=== PATIENT | female | born 1945 | race Caucasian/White ===

== ENCOUNTER → 2016-03-30 | Outpatient (CLI) | payer OTHER ==
[~2016-03-30] MED LIST: ACC10 PO; ACET1TAB84 PO; AMLO-110 PO; ASPEC81 PO; CALC-5 PO; CLTP PO; DIAZ2TAB PO; ESCI10TA17 PO; ESCI1TAB6 PO; METO1TAB31 PO; METO25TA3 PO; PRLSR20 PO; QUIN40TA18 PO; WARF4TAB PO
[2016-03-30 10:49] LABS: BASO % 0.4 %; BASO ABS # 0.02 K/uL (0-0.2); COMPLETE YES; EOS % 5.4 %; HEMATOCRIT 42.5 % (37-47); IG% 0.2 %; LYMPH % 38.4 %; LYMPH ABS # 1.78 K/uL (1.2-3.4); MEAN CELL VOLUME 94.4 fL (80-100); MEAN CORPUSCULAR HGB CONC 33.9 g/dl (32-36); MEAN PLATELET VOLUME 10.7 fL (7.4-10.4); MONO % 13.6 %; PLATELET COUNT 221 K/uL (130-400); WHITE BLOOD COUNT 4.64 K/uL (4.8-10.8)
[2016-03-30 11:02] LABS: ALT/SGPT 24 U/L (12-78); AST/SGOT 12 U/L (15-37); BLOOD UREA NITROGEN 19 mg/dl (7-18); BUN/CREATININE RATIO 28.5 (10-20); CALCIUM 9.1 mg/dl (8.5-10.1); CARBON DIOXIDE 31 mmol/L (21-32); CHLORIDE 101 mmol/L (98-107); CREATININE 0.66 mg/dl (0.60-1.20); GLUCOSE 87 mg/dl (70-99); HDL CHOLESTEROL 61 mg/dl; POTASSIUM 3.9 mmol/L (3.5-5.1); SODIUM 139 mmol/L (136-145)
[2016-03-30 11:05] LABS: ALB/GLOB RATIO 1.2 (0.9-2); ALKALINE PHOSPHATASE 72 U/L (45-117); CHOLESTEROL 212 mg/dl (0-200); CHOLESTEROL/HDL RATIO 3.5; LDL CHOLESTEROL CALCULATED 129 mg/dl; TRIGLYCERIDES 109 mg/dl (0-150); VERY LOW DENSITY LIPOPROT CALC 22 mg/dl
== END | disposition home or self-care (01) ==
LOC: C.LABBC 08:27
PROVIDERS: ATTEND Internal Medicine
DX: Z51.81 Encounter for therapeutic drug level monitoring (principal); Z79.01 Long term (current) use of anticoagulants

== ENCOUNTER → 2016-08-19 | Outpatient (CLI) | payer OTHER ==
[~2016-08-19] MED LIST changes: +METO-478 PO; -METO1TAB31 PO
== END | disposition home or self-care (01) ==
LOC: C.PAPS 11:14
PROVIDERS: ATTEND Nurse Practitioner Family
DX: J02.9 Acute pharyngitis, unspecified (principal)

== ENCOUNTER 2016-09-27 11:07 | Observation (INO) | payer OTHER ==
[~2016-09-27] VITALS: Ht 157.5 cm; Wt 61.6 kg
[~2016-09-27 11:07] MED LIST changes: -ASPEC81 PO; -CALC-5 PO; -ESCI10TA17 PO; -METO-478 PO; +METO1TAB31 PO; -METO25TA3 PO; -QUIN40TA18 PO
[2016-09-27] MEDS ORDERED: ASPIRIN 81 MG CHEW PO STA (11:30)
[2016-09-27] MEDS ORDERED: SODIUM CHLORIDE 0.9% 1000ML 1,000 ML IV STA (11:30)
--- NOTE | 2016-09-27 11:33 | EMERGENCY ROOM VISIT NOTE ---
History Report prepared by Guerrero: Yakelin Howard Under the Supervision of: Dr. Rico Keyes M.D. First contact with patient: 11:17 Chief Complaint: CHEST PAIN Stated Complaint: CHEST PAIN History of Present Illness The patient is a 71 year old female who presents to the Emergency Room with complaints of intermittent chest pain beginning a few hours ago. The patient states that she was at [employer] and it was hot inside. She reports that she began to have chest pain intermittently and was diaphoretic. She notes that she began having pain in her back and neck pain on the left side. She reports that she thought that the pain may be indigestion but after being in the air conditioning her chest pain has resolved. The patient states that her pain has now moved to her abdomen. She reports that she has a history of atrial fibrillation and is on Warfarin. She notes that she had a stress test 4 years ago and it was normal but has never had a cardiac catheterization. The patient states that the last time she ate was last night. Source of History: patient Onset: a few hours ago Position: chest Timing: intermittent Modifying Factors (Worsening): other (heat) Associated Symptoms: + diaphoresis, + neck pain, + abdominal pain, + back pain Review of Systems See HPI for pertinent positives & negatives. A total of 10 systems reviewed and were otherwise negative. Past Medical & Surgical Medical Problems: (1) Fibromyalgia affecting forearm (2) GERD (gastroesophageal reflux disease) (3) Hypertension Family History Patient reports no known family medical history. Social History Smoking Status: Never Smoker Marital Status: Housing Status: lives with family Occupation Status: retired Current/Historical Medications Scheduled Acetaminophen (Tylenol Arthritis Ext Rel), 2 TAB PO QAM Amlodipine (Norvasc), 5 MG PO HS Calcium-Magnesium W/ Vitamin D (Calcium 500), 1 TAB PO HS Escitalopram (Lexapro), 10 MG PO HS Metoprolol Succ (Toprol Xl) (Toprol-Xl), 25 MG PO HS Omeprazole (Prilosec), 20 MG PO HS Quinapril Hcl (Accupril), 40 MG PO HS Warfarin Sodium (Coumadin), 4 MG PO HS Allergies Coded Allergies: Iodinated Diagnostic Agents (Unverified Allergy, Mild, ., 09/27/16) Sulfa Drugs (Verified Allergy, Mild, 09/27/16) Physical Exam Vital Signs Date Time Temp Pulse Resp B/P (MAP) Pulse Ox O2 Delivery O2 Flow Rate FiO2 09/27/16 13:59 81 16 147/88 97 Room Air 09/27/16 12:23 71 09/27/16 12:09 96 Room Air 09/27/16 12:09 73 18 157/88 97 Room Air 09/27/16 11:50 97 Room Air 09/27/16 11:11 36.7 78 20 124/71 97 Room Air Physical Exam GENERAL: Patient is a healthy-appearing well-nourished [] HEAD: Normocephalic atraumatic EYES: Ocular movements intact pupils equal and react to light OROPHARYNX mucous membranes are moist no exudates present no erythema or edema present NECK: Supple no nuchal rigidity CHEST: Good equal expansion LUNGS: Clear and equal to auscultation CARDIAC: Normal S1 and S2 ABDOMEN: Soft nontender no guarding BACK: No CVA tenderness EXTREMITIES: No pain upon palpation normal muscle strength in all groups no clubbing cyanosis or edema NEURO: Patient is following commands and answering questions appropriately. Alert and oriented x3 Cranial Nerves 2-12 grossly intact Medical Decision & Procedures ER Provider Diagnostic Interpretation: X-ray results as stated below per interpretation by me and the radiologist: CHEST ONE VIEW PORTABLE FINDINGS: The heart is the upper limits of normal in size. There is no failure. There is no focal pulmonary consolidation. There are no pleural effusions.[ IMPRESSION: No active disease in the chest. Electronically signed by: Yfn Ovalle M.D. 09/27/2016 12:07 PM Dictated Date/Time: 09/27/2016 12:06 PM Laboratory Results 09/27/16 11:50 Red Blood Count 4.74, Mean Corpuscular Volume 93.5, Mean Corpuscular Hemoglobin 32.1, Mean Corpuscular Hemoglobin Concent 34.3, Mean Platelet Volume 10.5, Neutrophils (%) (Auto) 43.2, Lymphocytes (%) (Auto) 42.1, Monocytes (%) (Auto) 10.2, Eosinophils (%) (Auto) 3.9, Basophils (%) (Auto) 0.4, Neutrophils # (Auto ) 2.34, Lymphocytes # (Auto) 2.28, Monocytes # (Auto) 0.55, Eosinophils # (Auto ) 0.21, Basophils # (Auto) 0.02 09/27/16 11:50 Test 09/27/16 11:50 White Blood Count 5.41 K/uL (4.8-10.8) Red Blood Count 4.74 M/uL (4.2-5.4) Hemoglobin 15.2 g/dL (12.0-16.0) Hematocrit 44.3 % (37-47) Mean Corpuscular Volume 93.5 fL (80-100) Mean Corpuscular Hemoglobin 32.1 pg (25-34) Mean Corpuscular Hemoglobin Concent 34.3 g/dl (32-36) Platelet Count 215 K/uL (130-400) Mean Platelet Volume 10.5 fL (7.4-10.4) Neutrophils (%) (Auto) 43.2 % Lymphocytes (%) (Auto) 42.1 % Monocytes (%) (Auto) 10.2 % Eosinophils (%) (Auto) 3.9 % Basophils (%) (Auto) 0.4 % Neutrophils # (Auto) 2.34 K/uL (1.4-6.5) Lymphocytes # (Auto) 2.28 K/uL (1.2-3.4) Monocytes # (Auto) 0.55 K/uL (0.11-0.59) Eosinophils # (Auto) 0.21 K/uL (0-0.5) Basophils # (Auto) 0.02 K/uL (0-0.2) RDW Standard Deviation 45.5 fL (36.4-46.3) RDW Coefficient of Variation 13.2 % (11.5-14.5) Immature Granulocyte % (Auto) 0.2 % Immature Granulocyte # (Auto) 0.01 K/uL (0.00-0.02) Prothrombin Time 25.3 SECONDS (9.0-12.0) Prothromb Time International Ratio 2.3 (0.9-1.1) Anion Gap 6.0 mmol/L (3-11) Est Creatinine Clear Calc Drug Dose 67.7 ml/min Estimated GFR () 102.8 Estimated GFR (Non- 88.7 BUN/Creatinine Ratio 23.1 (10-20) Calcium Level 9.5 mg/dl (8.5-10.1) Total Bilirubin 0.6 mg/dl (0.2-1) Direct Bilirubin 0.2 mg/dl (0-0.2) Aspartate Amino Transf (AST/SGOT) 16 U/L (15-37) Alanine Aminotransferase (ALT/SGPT) 24 U/L (12-78) Alkaline Phosphatase 73 U/L (45-117) Total Creatine Kinase 82 U/L (26-192) Creatine Kinase MB 1.1 ng/ml (0.5-3.6) Creatine Kinase MB Ratio 1.3 (0-3.0) Troponin I 0.028 ng/ml (0-0.045) Total Protein 7.5 gm/dl (6.4-8.2) Albumin 4.0 gm/dl (3.4-5.0) Lipase 137 U/L (73-393) Labs reviewed by ED physician. Medications Administered Medications (Trade) Dose Ordered Sig/Harmony Route Start Time Stop Time Status Last Admin Dose Admin Sodium Chloride 1,000 ml @ 999 mls/hr Q1H1M STAT IV 09/27/16 11:30 09/27/16 12:30 DC 09/27/16 12:08 999 MLS/HR Aspirin (Aspirin Chew) 324 mg NOW STAT PO 09/27/16 11:30 09/27/16 11:32 DC 09/27/16 12:08 324 MG ECG Indication: chest pain Rate (beats per minute): 70 Rhythm: atrial fibrillation Findings: RBBB (incomplete), no acute ischemic change ED Course 1117: Past medical records reviewed. The patient was evaluated in room B3. A complete history and physical examination was performed. 1130: Aspirin 324mg PO, Sodium Chloride 1000 ml @ 999 mls/hr IV. 1346: I discussed the patient's case with Dr. Lopez of Cardiology about the patient's case. 1401: I discussed the patient's case with Dr. Conteh, she has agreed to evaluate the patient for further management and care. 1412: Upon reexamination the patient is doing well. I discussed results and treatment plan with the patient. She verbalizes agreement and understanding. I spoke with Dr. Conteh from the [facility] Hospitalist Service. The patient will be evaluated for further management. Medical Decision Differential diagnosis: Etiologies such as cardiac ischemia, aortic dissection, pulmonary embolism, pneumonia, pneumothorax, musculoskeletal, infections, pericarditis, myocarditis , esophageal rupture, gastrointestinal, as well as others were entertained. This is a 71-year-old female who presents emergency department complaining of chest pain. The patient is pain-free upon arrival to the emergency department. She does have a history of atrial fibrillation however her EKG is unchanged from previous. Her Coumadin level is also therapeutic. She was given triage 24 mg of aspirin in the emergency department. Her CK and MB fractions are normal however her troponin is slightly elevated. 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 I did discuss the case with the hospitalist service who agreed to admit the patient. Patient was in agreement with the treatment plan. Medication Reconcilliation Current Medication List: was personally reviewed by me Blood Pressure Screening Patient's blood pressure: Normal blood pressure Blood pressure disposition: Did not require urgent referral Consults Time Called: 1342 Consulting Physician: Dr. Lopez - Cardiology Returned Call: 1346 I discussed the patient's case with Dr. Lopez of Cardiology about the patient's case. Additional Consults: Time Called: 1358 Consulted Physician: Dr. Conteh - [facility] Returned Call: 1401 Additional Comments: I discussed the patient's case with Dr. Conteh, she has agreed to evaluate the patient for further management and care. Impression Primary Impression: Precordial chest pain Scribe Attestation The scribe's documentation has been prepared under my direction and personally reviewed by me in its entirety. I confirm that the note above accurately reflects all work, treatment, procedures, and medical decision making performed by me. Departure Information Dispostion Being Evaluated By Hospitalist Referrals Nael Don M.D. (PCP) Patient Instructions [facility]
--- NOTE | 2016-09-27 12:08 | DIAGNOSTIC IMAGING REPORT ---
CHEST ONE VIEW PORTABLE CLINICAL HISTORY: Atypical chest pain COMPARISON STUDY: 12/16/2010 FINDINGS: The heart is the upper limits of normal in size. There is no failure. There is no focal pulmonary consolidation. There are no pleural effusions.[ IMPRESSION: No active disease in the chest. Electronically signed by: Yfn Ovalle M.D. 09/27/2016 12:07 PM Dictated Date/Time: 09/27/2016 12:06 PM
[2016-09-27 12:17] LABS: BASO % 0.4 %; BASO ABS # 0.02 K/uL (0-0.2); COMPLETE YES; EOS % 3.9 %; HEMATOCRIT 44.3 % (37-47); IG% 0.2 %; LYMPH % 42.1 %; LYMPH ABS # 2.28 K/uL (1.2-3.4); MEAN CELL VOLUME 93.5 fL (80-100); MEAN CORPUSCULAR HEMOGLOBIN 32.1 pg (25-34); MEAN CORPUSCULAR HGB CONC 34.3 g/dl (32-36); MEAN PLATELET VOLUME 10.5 fL (7.4-10.4); MONO % 10.2 %; NEUT % 43.2 %; PLATELET COUNT 215 K/uL (130-400); RED BLOOD COUNT 4.74 M/uL (4.2-5.4); WHITE BLOOD COUNT 5.41 K/uL (4.8-10.8)
[2016-09-27 12:24] LABS: INR 2.3 (0.9-1.1); PROTHROMBIN TIME (PATIENT) 25.3 SECONDS (9.0-12.0)
[2016-09-27] MEDS ORDERED: ACET1TAB84 PO (12:32)
[2016-09-27] MEDS ORDERED: ESCI10TA17 PO (12:32)
[2016-09-27] MEDS ORDERED: CALC-5 PO (12:32)
[2016-09-27] MEDS ORDERED: AMLO-110 PO (12:32)
[2016-09-27] MEDS ORDERED: METO25TA3 PO (12:32)
[2016-09-27] MEDS ORDERED: PRLSR20 PO (12:32)
[2016-09-27] MEDS ORDERED: QUIN40TA18 PO (12:32)
[2016-09-27 12:39] LABS: BUN/CREATININE RATIO 23.1 (10-20); CALCIUM 9.5 mg/dl (8.5-10.1); CREATININE 0.65 mg/dl (0.60-1.20); POTASSIUM 3.5 mmol/L (3.5-5.1)
[2016-09-27 12:45] LABS: CKMB/CK RATIO 1.3 (0-3.0)
[2016-09-27] MEDS ORDERED: POLYETHYLENE (MIRALAX) 17 GM PACK PO PRN (14:45)
[2016-09-27] MEDS ORDERED: ONDANSETRON INJ 2 MG/ML 2 ML VIAL IV PRN (14:45)
[2016-09-27] MEDS ORDERED: MAGNESIUM HYDROXIDE SUSP 30 ML UDC PO PRN (14:45)
[2016-09-27] MEDS ORDERED: ACETAMINOPHEN 325 MG TAB PO PRN (14:45)
--- NOTE | 2016-09-27 15:16 | History and Physical ---
History & Physical Date & Time of Service: Sep 27, 2016 at 14:50 Chief Complaint: Chest Pain Primary Care Physician: Nael Don M.D. History of Present Illness Source: patient, spouse, clinic records, hospital records This is a 71 y/o female with a history of permanent a-fib on chronic anticoagulation, HTN, HLD, JI, GERD, chronic back pain w/radiculopathy, and scleroderma who presented to the ED on 09/27 with chest pain. The patient states that she was in [employer] when she began to develop epigastric and left sided chest pain. She states that the pain was burning in character. The patient notes she has GERD and has not eaten anything today except 2 cups of coffee. The pain began to increase in intensity and shoot through to her back and was accompanied by some shortness of breath and nausea. The patient states the pain was a 7/10 at its most severe and lasted about 20-30 minutes. The patient also notes that the [employer] was hot inside due to lack of air conditioning, and she began to feel better once she cooled down. The patient states that her chest pain, shortness of breath, and nausea have all resolved now. She has some left sided neck pain and spasm, which seems to be unrelated, as well as her usual back pain. The patient admits to tingling in her left hand but states this is chronic due to her cervical stenosis. The patient denies fevers, chills, sweats, palpitations, claudication, cough, wheezing, vomiting, dysuria, hematuria, urinary retention, paralysis, weakness, new/acute numbness and tingling. Past Medical/Surgical History Medical Problems: (1) Fibromyalgia affecting forearm Status: Chronic (2) GERD (gastroesophageal reflux disease) Status: Chronic (3) Hypertension Status: Chronic Permanent a-fib on chronic AC HLD JI Chronic back pain, cervical and lumbar stenosis w/radiculopathy Scleroderma H/o melanoma Family History Basal cell carcinoma Coronary artery disease Hypertension Myocardial infarction Social History Smoking Status: Never Smoker Smokeless Tobacco Use: No Alcohol Use: socially (1 glass of wine most nights) Drug Use: none Marital Status: Housing status: lives with significant other Occupational Status: retired Allergies Coded Allergies: Iodinated Diagnostic Agents (Unverified Allergy, Mild, ., 09/27/16) Sulfa Drugs (Verified Allergy, Mild, 09/27/16) Home Medications Scheduled Acetaminophen (Tylenol Arthritis Ext Rel), 2 TAB PO QAM Amlodipine (Norvasc), 5 MG PO HS Calcium-Magnesium W/ Vitamin D (Calcium 500), 1 TAB PO HS Escitalopram (Lexapro), 10 MG PO HS Metoprolol Succ (Toprol Xl) (Toprol-Xl), 25 MG PO HS Omeprazole (Prilosec), 20 MG PO HS Quinapril Hcl (Accupril), 40 MG PO HS Warfarin Sodium (Coumadin), 4 MG PO HS Review of Systems Constitutional: No fever, No chills, No sweats Eyes: No worsening of vision, No eye pain, No diplopia ENT: No hearing loss, No sore throat, No trouble swallowing Respiratory: + shortness of breath (resolved), No cough, No wheezing Cardiovascular: + chest pain (resolved), No claudication, No palpitations Abdomen: + nausea (resolved), No pain, No vomiting Musculoskeletal: + joint pain, + muscle pain (L neck w/spasm and pain), No calf pain Genitourinary - Female: No dysuria, No urinary retention, No hematuria Neurologic: + numbness/tingling (chronic), No paralysis, No weakness Integumentary: No rash, No itch, No color change Physical Exam Vital Signs Date Time Temp Pulse Resp B/P (MAP) Pulse Ox O2 Delivery O2 Flow Rate FiO2 09/27/16 13:59 81 16 147/88 97 Room Air 09/27/16 12:23 71 09/27/16 12:09 96 Room Air 09/27/16 12:09 73 18 157/88 97 Room Air 09/27/16 11:50 97 Room Air 09/27/16 11:11 36.7 78 20 124/71 97 Room Air General appearance: Well-developed, well-nourished, no apparent distress Head: Normocephalic, atraumatic Eyes: Normal inspection, PERRL, EOMI ENT: Normal ENT inspection, hearing grossly normal, pharynx normal Neck: +Left neck muscles w/spasm, TTP. Supple, no JVD, trachea midline Respiratory/Chest: Lungs clear to auscultation, normal breath sounds, no respiratory distress Cardiovascular: +Irregularly irregular, rate controlled. No gallop, no murmur Abdomen/GI: +Epigastrium mildly TTP. Normal bowel sounds, non-tender, soft Extremities/Musculoskeletal: Normal inspection, no calf tenderness, no pedal edema Neurological/Psych: Alert, normal mood/affect, oriented x 3 Skin: Normal color, warm/dry, no rash Diagnostics Laboratory Results Results Past 24 Hours Test 09/27/16 11:50 Range/Units White Blood Count 5.41 4.8-10.8 K/uL Red Blood Count 4.74 4.2-5.4 M/uL Hemoglobin 15.2 12.0-16.0 g/dL Hematocrit 44.3 37-47 % Mean Corpuscular Volume 93.5 80-100 fL Mean Corpuscular Hemoglobin 32.1 25-34 pg Mean Corpuscular Hemoglobin Concent 34.3 32-36 g/dl Platelet Count 215 130-400 K/uL Mean Platelet Volume 10.5 7.4-10.4 fL Neutrophils (%) (Auto) 43.2 % Lymphocytes (%) (Auto) 42.1 % Monocytes (%) (Auto) 10.2 % Eosinophils (%) (Auto) 3.9 % Basophils (%) (Auto) 0.4 % Neutrophils # (Auto) 2.34 1.4-6.5 K/uL Lymphocytes # (Auto) 2.28 1.2-3.4 K/uL Monocytes # (Auto) 0.55 0.11-0.59 K/uL Eosinophils # (Auto) 0.21 0-0.5 K/uL Basophils # (Auto) 0.02 0-0.2 K/uL RDW Standard Deviation 45.5 36.4-46.3 fL RDW Coefficient of Variation 13.2 11.5-14.5 % Immature Granulocyte % (Auto) 0.2 % Immature Granulocyte # (Auto) 0.01 0.00-0.02 K/uL Prothrombin Time 25.3 9.0-12.0 SECONDS Prothromb Time International Ratio 2.3 0.9-1.1 Sodium Level 136 136-145 mmol/L Potassium Level 3.5 3.5-5.1 mmol/L Chloride Level 99 98-107 mmol/L Carbon Dioxide Level 31 21-32 mmol/L Anion Gap 6.0 3-11 mmol/L Blood Urea Nitrogen 15 7-18 mg/dl Creatinine 0.65 0.60-1.20 mg/dl Est Creatinine Clear Calc Drug Dose 67.7 ml/min Estimated GFR () 102.8 Estimated GFR (Non- 88.7 BUN/Creatinine Ratio 23.1 10-20 Random Glucose 82 70-99 mg/dl Calcium Level 9.5 8.5-10.1 mg/dl Total Bilirubin 0.6 0.2-1 mg/dl Direct Bilirubin 0.2 0-0.2 mg/dl Aspartate Amino Transf (AST/SGOT) 16 15-37 U/L Alanine Aminotransferase (ALT/SGPT) 24 12-78 U/L Alkaline Phosphatase 73 45-117 U/L Total Creatine Kinase 82 26-192 U/L Creatine Kinase MB 1.1 0.5-3.6 ng/ml Creatine Kinase MB Ratio 1.3 0-3.0 Troponin I 0.028 0-0.045 ng/ml Total Protein 7.5 6.4-8.2 gm/dl Albumin 4.0 3.4-5.0 gm/dl Lipase 137 73-393 U/L Diagnostic Radiology Reviewed the following studies and agree with interpretation as follows: Patient Name: DEBBIE ANTHONY Unit Number: [id number] Dictated: 09/27/161205 Transcribed: 09/27/161205 ARG Printed Date/Time: [~ rep prt dt]/[~ rep prt tm] [~ rep ct labl] - [~ rep ct ivnm] [facility] Radiology Department [place], [place] [id number] Dictated: 09/27/161205 Transcribed: 09/27/161205 ARG Printed Date/Time: [~ rep prt dt]/[~ rep prt tm] [~ rep ct labl] - [~ rep ct ivnm] Patient: DEBBIE ANTHONY Address1: [facility] [address] [facility] Rec: [id number] Address2: Acct ID: [id number] [facility] Zip: [place] [address] Date: 1945 Sex: F Room/Bed: Ref Phy: Nael Don M.D. SC: JULIANNE Att Phy: Report #: [id number] Soledad Phy: Nael Don M.D. Test: CXR1P Admit Phy: Steamfitter: DEWEY Interpreting Phy: Yfn Ovalle M.D. Diagnosis: CHEST PAIN Ordering Phy: Rico Keyes MD Service Date: 09/27/16 Admit Date: 09/27/16 MNE: [id number] CONF: DICTATED BY: Yfn Ovalle M.D.]] CC: Rico Keyes, Nael Kwok M.D. Endcc: [~ rep ct add3]] CHEST ONE VIEW PORTABLE CLINICAL HISTORY: Atypical chest pain COMPARISON STUDY: 12/16/2010 FINDINGS: The heart is the upper limits of normal in size. There is no failure. There is no focal pulmonary consolidation. There are no pleural effusions.[ IMPRESSION: No active disease in the chest. Electronically signed by: Yfn Ovalle M.D. 09/27/2016 12:07 PM Dictated Date/Time: 09/27/2016 12:06 PM The status of this report is Signed. Draft = Not yet reviewed or approved by Radiologist. Signed = Reviewed and approved by Radiologist. <AttendingPhy></AttendingPhy> <FamilyPhy>Nael Don M.D.</FamilyPhy> < PrimaryPhy>Nael Don M.D.</PrimaryPhy> <UnitNumber>[id number]</UnitNumber> <VisitNumber>[id number]</VisitNumber> <PatientName>DEBBIE ANTHONY</PatientName> <DateOfBirth>1945</DateOfBirth> <Location>C.EDB</Location> <ServiceDate></ServiceDate> <MNE>ESINDI</MNE> <OrderingPhy>Rico Keyes MD</ OrderingPhy> <OrderingPhyMNE>f rep ord dr angeles</OrderingPhyMNE> <DictatingPhyMNE> f rep dict dr angeles</DictatingPhyMNE> <CCListMNE>f rep ct mne</CCListMNE> < AdmittingPhyMNE>f pt admit dr angeles</AdmittingPhyMNE> <AttendingPhyMNE>f pt attend dr angeles</AttendingPhyMNE> <ConsultingPhyMNE>f pt consult dr angeles</ConsultingPhyMNE> <FamilyPhyMNE>f pt fam dr angeles</FamilyPhyMNE> <OtherPhyMNE>f pt other dr angeles</OtherPhyMNE> < PrimaryPhyMNE>f pt prim care dr angeles</PrimaryPhyMNE> <ReferringPhyMNE>f pt referring dr angeles</ReferringPhyMNE> EKG Reviewed EKG and agree with interpretation as follows: 70 bpm, a-fib, incomplete RBBB Impression Assessment and Plan 71 y/o female with a history of permanent a-fib on chronic anticoagulation, HTN , HLD, JI, GERD, chronic back pain w/radiculopathy, and scleroderma who presented to the ED on 09/27 with chest pain. Pt afebrile, VSS. EKG no ischemic changes. CXR no acute disease. CBC and PRP grossly unremarkable. INR therapeutic. Troponin negative. Chest pain -Admit to tele for observation -Trend cardiac enzymes q8h x 3 -EKG q am and prn chest pain -Pt requested to see Dr. Lopez, her fence installer helper. Dr. Lopez aware, told ED physician he will do stress test in the morning -Consult cardiology -Stress echo in the am -NPO after midnight -Last lipid panel March 2016 reviewed. Calculated CVD risk; recommends moderate to high intensity statin -Repeat fasting lipid panel in am -Start atorvastatin 10 mg PO qd -ASA 81 mg PO qd -Continue home beta kade Permanent a-fib--stable, rate controlled -Continue metoprolol succinate 25 mg PO qd -INR therapeutic at 2.3 -Continue warfarin 4 mg PO qd -Potassium low normal at 3.5 on admission, will give 40 mEq KCl x 1 now HTN--stable -Continue Norvasc 5 mg PO qd, quinapril substituted for lisinopril 40 mg PO qd, metoprolol as above JI--stable -Continue Lexapro 10 mg PO qd GERD -Substitute Prilosec for pantoprazole 40 mg PO qd DVT prophylaxis -Warfarin -APOLINAR hose and SCDs Code Status -Level V, DO NOT RESUSCITATE Level of Care Telemetry Resuscitation Status DO NOT RESUSCITATE VTE Prophylaxis VTE Risk Assessment Done? Y/N: Yes Risk Level: Moderate Given or contraindicated: Warfarin (Coumadin), T.E.D. Stockings, SCD's Reviewed: Pt Seen/Exam by Me History Physician Gas Technician Supervision Note: I interviewed and examined the patient. Discussed with ISRRAEL Jay and agree with findings and plan as documented in the note. Any exceptions or clarifications are listed here: Patient is a 71-year-old female with a h/o atrial fibrillation, hypertension, scleroderma, GERD, and anxiety, who presents with upper abdominal pain right under the breasts that started on the left and radiated over to the right upper quadrant as well as some radiation up the left side of the chest to the left side of the neck as well as straight through from the epigastrium to the mid back. The pain is described as a intense burning and pressure. By the time she had to the ER it has worn off except for she was still having the pain in the back. LFTs were normal, CBC and chemistry was normal, ECG showed atrial fibrillation but no signs of ischemia. Chest x-ray was negative. Vitals reviewed No acute distress, alert awake oriented 3 Anicteric sclerae Irregularly irregular, no murmurs gallops or rubs Lungs clear to auscultation bilaterally, breathing unlabored Abdomen positive bowel sounds, soft, nondistended, positive mild tenderness to palpation in the right periumbilical region without guarding or rebound tenderness Extremities no edema, 2+ dorsalis pedis pulses 71-year-old female here with upper abdominal pain and atypical chest pain. -Could be symptomatic cholelithiasis and need to rule out ACS. Could also be GERD. -Trend troponins and ECGs, monitor on telemetry, check stress echocardiogram -Check right upper quadrant ultrasound and follow LFTs in the morning Documented By: Daisha Conteh
[2016-09-27 15:20] VITALS: O2SAT 97; Ht 157.5 cm; Wt 61.6 kg
[2016-09-27] MEDS ORDERED: IV FLUIDS COMPLETED PRN (15:30)
[2016-09-27 15:44] VITALS: BP 154/88; PULSE 74; TEMP 36.9; O2SAT 96
[2016-09-27 16:00] VITALS: O2SAT 96
[2016-09-27] MEDS ORDERED: WARFARIN SOD 4 MG TAB PO SCH (16:00)
[2016-09-27] MEDS ORDERED: POTASSIUM CHLORIDE 20 MEQ TABCR PO ONE (16:00)
[2016-09-27] MEDS: ACETAMINOPHEN 325 MG TAB PO SCH (16:18)
[2016-09-27] MEDS: ALUMINUM/MAGNESIUM/SIMETH (MAALOX MAX) 30 ML UDC PO PRN ×2 (17:32→21:58)
[2016-09-27 20:17] VITALS: BP 146/87; PULSE 77; TEMP 36.9; O2SAT 96
[2016-09-27] MEDS ORDERED: AMLODIPINE BESYLATE 5 MG TAB PO SCH (21:00)
[2016-09-27] MEDS ORDERED: ESCITALOPRAM OXALATE 10 MG TAB PO SCH (21:00)
[2016-09-27] MEDS ORDERED: METOPROLOL SUCC 25MG EXT REL TAB PO SCH (21:00)
[2016-09-27 22:48] VITALS: BP 139/71; PULSE 90; TEMP 36.8; O2SAT 95
[2016-09-28 03:16] VITALS: BP 156/77; PULSE 82; TEMP 36.8; O2SAT 95
[2016-09-28 04:41] LABS: HEMATOCRIT 44.2 % (37-47); MEAN CELL VOLUME 93.6 fL (80-100); MEAN CORPUSCULAR HEMOGLOBIN 31.4 pg (25-34); MEAN CORPUSCULAR HGB CONC 33.5 g/dl (32-36); MEAN PLATELET VOLUME 10.3 fL (7.4-10.4); PLATELET COUNT 203 K/uL (130-400); RED BLOOD COUNT 4.72 M/uL (4.2-5.4); WHITE BLOOD COUNT 5.06 K/uL (4.8-10.8)
[2016-09-28 04:59] LABS: INR 2.4 (0.9-1.1); PROTHROMBIN TIME (PATIENT) 27.1 SECONDS (9.0-12.0)
[2016-09-28 05:03] LABS: BUN/CREATININE RATIO 24.3 (10-20); CALCIUM 9.3 mg/dl (8.5-10.1); CKMB/CK RATIO 1.5 (0-3.0); CREATININE 0.64 mg/dl (0.60-1.20); POTASSIUM 4.4 mmol/L (3.5-5.1)
[2016-09-28] MEDS: ACETAMINOPHEN 325 MG TAB PO SCH (06:35)
--- NOTE | 2016-09-28 06:58 | DIAGNOSTIC IMAGING REPORT ---
GALLBLADDER-ABD LIMITED HISTORY: 71 years-old Female acute right upper quadrant abdominal pain with concern for cholelithiasis COMPARISON: CT abdomen and pelvis 07/02/2010 TECHNIQUE: Multiple real-time sonographic images of the abdominal right upper quadrant were obtained assessing grayscale appearance and color flow. FINDINGS: The imaged pancreas appears to be within normal limits with distal body and tail. By bowel gas. There are several essentially anechoic somewhat lobulated thin-walled lesions throughout the liver, largest of which is within the region of the anterior right hepatic lobe, 2.9 x 3.8 x 3.8 cm compatible with a cyst and appears unchanged from 07/02/2010 CT study. Liver measures up to 14.0 cm in length. Smaller hypoechoic lesions of the hepatic parenchyma are also seen suggesting additional cysts which are also noted on comparison study. There is a small nonshadowing 2 mm echogenic focus along the dependent gallbladder wall without posterior features or internal vascularity. No shadowing cholelithiasis, gallbladder wall thickening or pericholecystic fluid collections. Common bile duct is normal, 5.9 mm. There is a nonshadowing echogenic focus of the midpole right kidney, 0.5 cm with twinkle artifact. No associated hydronephrosis. There is a cyst of the lower pole right kidney, 1.2 x 1.1 x 1.5 cm, unchanged. External renal pelvis on the right is again noted. IMPRESSION: 1. No sonographic evidence of cholelithiasis or acute cholecystitis. 2. 2 mm echogenic nonshadowing focus along the dependent gallbladder wall may reflect small polyp or tumefactive sludge. 3. 5 mm nonobstructing calculus of the right kidney. 4. Several hepatic cysts are redemonstrated without significant change from CT study 07/02/2010. The above report was generated using voice recognition software. It may contain grammatical, syntax or spelling errors. Electronically signed by: Atif Villareal M.D. 09/28/2016 6:56 AM Dictated Date/Time: 09/28/2016 6:50 AM
[2016-09-28 07:51] VITALS: BP_SYST 143; BP_SYST 144; BP_DIAS 75; BP_DIAS 83; PULSE 70; TEMP 36.7; O2SAT 96
[2016-09-28] MEDS: K PO SCH ×2 (07:55→07:57)
[2016-09-28 08:00] VITALS: O2SAT 96
[2016-09-28] MEDS ORDERED: LISINOPRIL 40 MG TAB PO SCH (09:00)
[2016-09-28] MEDS ORDERED: PANTOprazole SOD 40 MG TAB PO SCH (09:00)
[2016-09-28] MEDS ORDERED: ASPIRIN 81 MG ECTAB PO SCH (09:00)
[2016-09-28 10:42] VITALS: BP 129/77; PULSE 92; TEMP 36.7; O2SAT 96
[2016-09-28] MEDS ORDERED: ASPEC81 PO (11:04)
--- NOTE | 2016-09-28 11:09 | Discharge Instructions ---
Discharge Instructions Date of Service Sep 28, 2016. Admission Reason for Admission: Precordial Chest Pain Discharge Discharge Diagnosis / Problem: Precordial Chest Pain Discharge Goals Goal(s): Decrease discomfort, Improve function, Increase independence Activity Recommendations Activity Limitations: resume your previous activity . Instructions / Follow-Up Instructions / Follow-Up Chest Pain: - Your stress test was negative to suggest this pain was heart related. - Would recommend to continue your previous medications as prescribed at to take a daily baby aspirin - You total cholesterol was just mildly elevated at 209 and we like to see this below 200. Statin medication is used to help control cholesterol and help with cardiovascular health -- Would recommend discussing these medications with your family doctor and address any concerns you may have with this medication and if you and your doctor agree you can be started on a medication for it. Gallbladder Sludge: - The ultrasound of your gallbladder showed what may be sludge (thickened bile) - bile helps to break down fats that you consume. - This testing did not show gallstones or gallbladder issues suggesting infections or problems but would be worth keeping an eye on Permanent Atrial Fibrillation: - Continue your medication as previously prescribed. - You INR was 2.4 today. Continue your dose as you do and have your INR checked as you normally do Follow-Up: - Please follow-up with your family doctor next week as previously scheduled -- Discuss statin therapy with Dr. Don Current Hospital Diet Patient's current hospital diet: AHA Diet (Heart Healthy) Discharge Diet Recommended Diet: AHA Diet (Heart Healthy) Pending Studies Studies pending at discharge: no Laboratory Results Lipid Panel Test 09/28/16 04:15 Range/Units Triglycerides Level 66 0-150 mg/dl Cholesterol Level 209 H 0-200 mg/dl HDL Cholesterol 70 mg/dl Cholesterol/HDL Ratio 3.0 LDL Cholesterol, Calculated 126 mg/dl Medical Emergencies . Who to Call and When: Medical Emergencies: If at any time you feel your situation is an emergency, please call 911 immediately. . Non-Emergent Contact Non-Emergency issues call your: Primary Care Provider Call Non-Emergent contact if: you have a fever, your pain is concerning you, you have any medication questions . . "Provider Documentation" section prepared by Yolanda Lujan. . VTE Core Measure Inpt VTE Proph given/why not?: Warfarin (Coumadin), T.E.DPaulette Buck, SCD's
[2016-09-28 11:16] VITALS: BP 129/77; PULSE 92; TEMP 36.7; O2SAT 96
--- NOTE | 2016-09-28 12:22 | EXERCISE STRESS ECHO ---
*NOTICE TO RECEIVING REPUBLICAN AGENCY This information is strictly Confidential and protected under [place] law. [place] law prohibits you from making any further disclosure of this information unless further disclosure is expressly permitted by the written consent of the person to whom it pertains or is authorized by law. A general authorization for the release of medical or other information is not sufficient for this purpose. Hospital accepts no responsibility if the information is made available to any other person, INCLUDING THE PATIENT. Interpretation Summary * Name: DEBBIE ANTHONY Study Date: 09/28/2016 06:59 AM BP: 137/89 mmHg * Patient Location: C.2T\S\S240\S\1 HR: 77 * : 1945 (M/d/yyyy) Gender: Female Height: 62 in * Age: 71 yrs Ethnicity: [place] Weight: 136 lb * Ordering Physician: Ruth Ann Jay * Referring Physician: Self, Referred * Performed By: Shweta Barrera RCS * * Reason For Study: Chest Pain * BSA: 1.6 m2 * The stress echocardiogram is negative for inducible ischemia. * _ workload achieved. * Exercise capacity is above average. * Normal resting wall motion and no stress-induced wall motion abnormality. * -- Conclusions -- * Left ventricular systolic function is normal. * There is borderline concentric left ventricular hypertrophy. * Ejection Fraction = 60-65%. * There is mild to moderate mitral regurgitation. Procedure Details * ECHOEX, CPT #[id number] * ECHO COLOR FLOW, CPT #[id number] * ECHO DOPPLER, CPT #[id number] Left Ventricle * The left ventricle is normal in size. * There is borderline concentric left ventricular hypertrophy. * Ejection Fraction = 60-65%. * Left ventricular systolic function is normal. * The left ventricular wall motion is normal at rest. * The left ventricular ejection fraction increases normally with stress. The left ventricular end-systolic cavity size reduces post-stress (normal response). The left ventricular wall motion with stress is normal. Right Ventricle * The right ventricle is normal in size and function. Atria * Borderline left atrial enlargement. * Borderline right atrial enlargement. * No ASD detected; PFO is not assessed. Mitral Valve * The mitral valve anatomy is normal. * There is no mitral valve stenosis. * There is mild to moderate mitral regurgitation. Tricuspid Valve * The tricuspid valve anatomy is normal. * There is no tricuspid stenosis. * Significant tricuspid regurgitation is absent. Aortic Valve * The aortic valve is trileaflet. * Aortic valve sclerosis mild, without significant aortic valvular stenosis. * Aortic stenosis is absent. * There is no significant aortic regurgitation. Pulmonic Valve * The pulmonary valve is not well seen, but the Doppler examination is normal without significant regurgitation or stenosis. Great Vessels * The aortic root and proximal ascending aorta are normal sized. Pericardium * There is no pericardial effusion. Stress Parameters * The baseline electrocardiogram was abnormal. It displayed atrial fibrillation. * Stress ECG: No ST changes. No arrhythmias. * The stress portion of this study was personally supervised by the undersigned interpreting physician. * Rest heart rate was '77' BPM. * Rest blood pressure was '137/89' * Maximum heart rate achieved was 136 bpm. * Maximum heart rate was 91 % of maximum age-predicted heart rate. * Maximum blood pressure was '177/105' * Total exercise time was '8:59' * Maximum exercise MET level achieved was '10.1' METS * Maximum treadmill speed was '3.4' miles per hour. * Maximum treadmill elevation was '14'% grade. * Exercise was terminated due to 'fatigue' * Normal blood pressure response to exercise. MMode 2D Measurements and Calculations IVSd 0.97 cm IVSs 1.2 cm LVIDd 3.9 cm LVIDs 2.4 cm LVPWd 0.96 cm LVPWs 1.2 cm IVS/LVPW 1.0 FS 39.1 % EDV(Teich) 64.4 ml ESV(Teich) 19.2 ml EF(Teich) 70.2 % EDV(cubed) 57.6 ml ESV(cubed) 13.0 ml EF(cubed) 77.4 % % IVS thick 26.8 % % LVPW thick 28.2 % LV mass(C)d 114.5 grams LV mass(C)dI 70.6 grams/m\S\2 LV mass(C)s 82.7 grams LV mass(C)sI 51.0 grams/m\S\2 CO(Teich) 3.8 l/min CI(Teich) 2.3 l/min/m\S\2 SV(Teich) 45.2 ml SI(Teich) 27.9 ml/m\S\2 CO(cubed) 3.7 l/min CI(cubed) 2.3 l/min/m\S\2 SV(cubed) 44.6 ml SI(cubed) 27.5 ml/m\S\2 Ao root diam 3.5 cm Ao root area 9.9 cm\S\2 ACS 1.6 cm LA dimension 4.0 cm asc Aorta Diam 3.0 cm LA/Ao 1.1 LVAd ap4 25.7 cm\S\2 LVLd ap4 7.8 cm EDV(MOD-sp4) 69.0 ml LVAs ap4 15.8 cm\S\2 LVLs ap4 7.1 cm ESV(MOD-sp4) 28.0 ml EF(MOD-sp4) 59.4 % LVAd ap2 22.3 cm\S\2 LVLd ap2 7.9 cm EDV(MOD-sp2) 52.0 ml LVAs ap2 14.7 cm\S\2 LVLs ap2 7.1 cm ESV(MOD-sp2) 24.0 ml EF(MOD-sp2) 53.8 % CO(MOD-sp4) 3.4 l/min CI(MOD-sp4) 2.1 l/min/m\S\2 SV(MOD-sp4) 41.0 ml SI(MOD-sp4) 25.3 ml/m\S\2 CO(MOD-sp2) 2.4 l/min CI(MOD-sp2) 1.4 l/min/m\S\2 SV(MOD-sp2) 28.0 ml SI(MOD-sp2) 17.3 ml/m\S\2 Doppler Measurements and Calculations MV E max chayo 112.3 cm/sec MV P1/2t max chayo 119.7 cm/sec MV P1/2t 81.8 msec MVA(P1/2t) 2.7 cm\S\2 MV dec slope 428.7 cm/sec\S\2 MV dec time 0.17 sec Ao V2 max 110.1 cm/sec Ao max PG 4.9 mmHg Ao max PG (full) 2.4 mmHg LV V1 max PG 2.5 mmHg LV V1 max 78.4 cm/sec PI max chayo 211.8 cm/sec PI max PG 17.9 mmHg PI dec slope 157.2 cm/sec\S\2 PI P1/2t 394.5 msec TR max chayo 218.3 cm/sec
--- NOTE | 2016-09-28 13:24 | CARDIOLOGY CONSULTATION ---
DATE OF CONSULTATION: 09/28/2016 INDICATIONS: Chest pain. REFERRING PHYSICIAN: Dr. Nael Don. HISTORY OF PRESENT ILLNESS: The patient is a pleasant 71-year-old female whose history is notable for chronic atrial fibrillation, hypertension, hyperlipidemia, gastroesophageal reflux, history of past back pain with radiculopathy and scleroderma who presented to Emergency Room having developed symptoms of feeling ill and heat at [employer], then began experiencing burning type pain across her left precordial area, radiating to her shoulder and arm. Symptoms resulted in mild shortness of breath and nausea. She left [facility]ism due to complaints and was brought to the Emergency Room by her due to this concern. Symptoms began easing once patient was "in the air conditioning." Overall, total duration of complaints was 20-30 minutes. She did experience occasional indigestion and heartburn. Notes no recent change in exercise capacity. Notes no tachypalpitations. Notes no fevers, chills, sweats, cough, hoarseness, wheeze or hemoptysis. Notes no melena, hematochezia, dysuria, or hematuria. Appetite and weight have been stable. There were no changes in medications. REVIEW OF SYSTEMS: As in HPI, otherwise negative. ALLERGIES: IODINE AND SULFA. MEDICATIONS: Prior to hospitalization were amlodipine 5 mg p.o. q. day, Lexapro 10 mg at bedtime, metoprolol succinate 25 mg at bedtime, omeprazole 20 mg at bedtime, quinapril 40 mg at bedtime, warfarin 4 mg q. day. PAST SURGICAL HISTORY: Notable for prior carpal tunnel surgery in 1989, past partial hysterectomy, prior melanoma resection in 2007. FAMILY HISTORY: Not specifically notable for cardiac disease. SOCIAL HISTORY: The patient is a nonsmoker, rare alcohol user. PHYSICAL EXAMINATION: GENERAL: The patient is a pleasant, age-appropriate female in no acute distress. VITAL SIGNS: This morning reveal a heart rate of 83, blood pressure 147/81. Telemetry reveals chronic atrial fibrillation with no arrhythmias otherwise. HEENT: Normocephalic, atraumatic. Nares without discharge. Throat was clear. NECK: Supple without thyromegaly, lymphadenopathy, JVD. There are no carotid bruits. LUNGS: Clear to auscultation. CARDIOVASCULAR: Irregularly irregular. There is no S3 gallop. ABDOMEN: Soft, nontender. EXTREMITIES: Without cyanosis or clubbing. There is no peripheral edema. There are intact distal pulses. NEUROLOGIC: The patient is intact. DATA AND LABORATORY STUDIES: White cell count is 5.0, hemoglobin is 14.8. Sodium is 138, potassium is 4.4, chloride is 103, bicarb is 31, BUN 16, creatinine 0.64. CK-MB fractions were normal. Cholesterol was 209, LDL was 126. INR is 2.4. Chest x-ray reveals no infiltrate or edema. EKG reveals atrial fibrillation with incomplete right bundle branch block, poor R-wave progression across the anterior precordial leads. Stress echocardiography performed this morning on my referral demonstrates excellent work tolerance with patient achieving 9 minutes on a [place] protocol and 90% age predicted maximum heart rate without chest pain or symptoms. No EKG changes or echocardiographic abnormalities induced with normal resting and stress LV function. The patient tolerated stress test well. FINAL IMPRESSION: A 71-year-old female who developed chest pain and discomfort while at [employer], in association with heat and flushing; underlying history of chronic atrial fibrillation and gastroesophageal reflux. The patient this morning after negative enzymes and no evolution in EKGs was referred and underwent stress echocardiography with study negative for stress induced ischemia. Findings suggest a noncardiac source of complaints. Would continue usual cardiac medications as previously prescribed including chronic anticoagulation with warfarin, metoprolol, quinapril and amlodipine. Arrangements were made for outpatient followup with cardiology.
--- NOTE | 2016-09-28 14:27 | Discharge Summary ---
Discharge Summary Date of Service Sep 28, 2016. Discharge Summary Admission Date: Sep 27, 2016 at 14:50 Discharge Date: Sep 28, 2016 Discharge Disposition: Home Principal Diagnosis: Precordial Chest Pain Problems/Secondary Diagnoses: 1. Persistent Atrial Fibrillation on Warfarin 2. HTN 3. HLD 4. Generalized Anxiety Disorder 5. GERD 6. Chronic Back Pain w/ Radiculopathy 7. Scleroderma Procedures: 1. STRESS ECHOCARDIOGRAM * The stress echocardiogram is negative for inducible ischemia. * Exercise capacity is above average. * Normal resting wall motion and no stress-induced wall motion abnormality. * -- Conclusions -- * Left ventricular systolic function is normal. * There is borderline concentric left ventricular hypertrophy. * Ejection Fraction = 60-65%. * There is mild to moderate mitral regurgitation. 2. CHEST ONE VIEW PORTABLE FINDINGS: The heart is the upper limits of normal in size. There is no failure. There is no focal pulmonary consolidation. There are no pleural effusions.[ IMPRESSION: No active disease in the chest. 3. GALLBLADDER-ABD LIMITED FINDINGS: The imaged pancreas appears to be within normal limits with distal body and tail. By bowel gas. There are several essentially anechoic somewhat lobulated thin-walled lesions throughout the liver, largest of which is within the region of the anterior right hepatic lobe, 2.9 x 3.8 x 3.8 cm compatible with a cyst and appears unchanged from 07/02/2010 CT study. Liver measures up to 14.0 cm in length. Smaller hypoechoic lesions of the hepatic parenchyma are also seen suggesting additional cysts which are also noted on comparison study. There is a small nonshadowing 2 mm echogenic focus along the dependent gallbladder wall without posterior features or internal vascularity. No shadowing cholelithiasis, gallbladder wall thickening or pericholecystic fluid collections. Common bile duct is normal, 5.9 mm. There is a nonshadowing echogenic focus of the midpole right kidney, 0.5 cm with twinkle artifact. No associated hydronephrosis. There is a cyst of the lower pole right kidney, 1.2 x 1.1 x 1.5 cm, unchanged. External renal pelvis on the right is again noted. IMPRESSION: 1. No sonographic evidence of cholelithiasis or acute cholecystitis. 2. 2 mm echogenic nonshadowing focus along the dependent gallbladder wall may reflect small polyp or tumefactive sludge. 3. 5 mm nonobstructing calculus of the right kidney. 4. Several hepatic cysts are redemonstrated without significant change from CT study 07/02/2010. Consultations: 1. Cardiology Medication Reconciliation New Medications: Aspirin (Aspirin EC Low Dose) 81 Mg Ectab 81 MG PO QAM for 30 Days, #30 TABS Continued Medications: Acetaminophen (Tylenol Arthritis Ext Rel) 650 Mg Cplt 2 TAB PO QAM, CAP Amlodipine (Norvasc) 5 Mg Tab 5 MG PO HS, TAB Calcium-Magnesium W/ Vitamin D (Calcium 500) 1 Tab Tab 1 TAB PO HS Escitalopram (Lexapro) 10 Mg Tab 10 MG PO HS, TAB Metoprolol Succ (Toprol Xl) (Toprol-Xl) 25 Mg Tabcr 25 MG PO HS, TAB Omeprazole (Prilosec) 20 Mg Capcr 20 MG PO HS, CAP Quinapril Hcl (Accupril) 40 Mg Tab 40 MG PO HS, TAB Warfarin Sodium (Coumadin) 4 Mg Tab 4 MG PO HS, TAB Discharge Exam Review of Systems: Constitutional: No fever, No chills, No sweats Eyes: No worsening of vision ENT: No nasal symptoms, No sore throat, No trouble swallowing Respiratory: No cough, No shortness of breath Cardiovascular: No chest pain, No palpitations Abdomen: No pain, No nausea, No vomiting, No diarrhea, No constipation, No GI bleeding Musculoskeletal: + swelling (chronic LLE ankle edema 2/2 melanoma removal), No calf pain Genitourinary - Female: No dysuria Neurologic: No weakness, No numbness/tingling Integumentary: No rash Physical Exam: General Appearance: WD/WN, no apparent distress Eyes: sclerae normal ENT: hearing grossly normal Neck: supple, no JVD, trachea midline Respiratory/Chest: lungs clear, normal breath sounds, no respiratory distress, no accessory muscle use Cardiovascular: no gallop, no murmur, + irregularly irregular Abdomen / GI: normal bowel sounds, non tender, soft Extremities: no calf tenderness, no pedal edema Neurologic/Psychiatric: alert, oriented x 3 Skin: normal color, warm/dry Hospital Course ADMISSION: This is a 71 y/o female with a history of permanent a-fib on chronic anticoagulation, HTN, HLD, JI, GERD, chronic back pain w/radiculopathy, and scleroderma who presented to the ED on 09/27 with chest pain. The patient states that she was in [facility] when she began to develop epigastric and left sided chest pain. She states that the pain was burning in character. The patient notes she has GERD and has not eaten anything today except 2 cups of coffee. The pain began to increase in intensity and shoot through to her back and was accompanied by some shortness of breath and nausea. The patient states the pain was a 7/10 at its most severe and lasted about 20-30 minutes. The patient also notes that the [facility]arsani was hot inside due to lack of air conditioning, and she began to feel better once she cooled down. The patient states that her chest pain, shortness of breath, and nausea have all resolved now. She has some left sided neck pain and spasm, which seems to be unrelated, as well as her usual back pain. The patient admits to tingling in her left hand but states this is chronic due to her cervical stenosis. The patient denies fevers, chills, sweats, palpitations, claudication, cough, wheezing, vomiting, dysuria, hematuria, urinary retention, paralysis, weakness, new/acute numbness and tingling. HOSPITAL COURSE: Ms. Hinojosa was admitted for chest pain. Cardiac enzymes were detectable but negative. She underwent stress testing which was negative for ischemic findings. Her cholesterol was mildly elevated at 209. Discussed statin therapy with her and she would like to discuss this with her PCP and will defer to Dr. Don. Due to the complaints of abdominal pain a RUQ U/S was completed that showed possible polyp vs sludge but no evidence of acute cholecystitis or cholelithiasis. Denies chronic abdominal issues/nausea/ vomiting. All home medications were continued as previously prescribed. Recommendations for daily ASA 81 mg daily given and Rx sent. She is hemodynamically stable and CP/Abdominal pain free and optimal for D/C home. Total Time Spent: Greater than 30 minutes This includes examination of the patient, discharge planning, medication reconciliation, and communication with other providers. Discharge Instructions Please refer to the electronic Patient Visit Report (Discharge Instructions) for additional information. Additional Copies To Nael Don M.D.
== END 2016-09-28 12:15 | disposition home or self-care (01) ==
LOC: C.EDB 11:08 → C.2T 14:50 → ENRESERV 15:06
PROVIDERS: ADMIT Family Medicine; ATTEND Internal Medicine
DX: R07.2 Precordial pain (principal); K21.9 Gastro-esophageal reflux disease without esophagitis; I10 Essential (primary) hypertension; I48.91 Unspecified atrial fibrillation; Z79.01 Long term (current) use of anticoagulants; M34.9 Systemic sclerosis, unspecified; Z82.49 Family history of ischemic heart disease and other diseases of the circulatory system; E78.5 Hyperlipidemia, unspecified; Z79.82 Long term (current) use of aspirin

== ENCOUNTER → 2016-10-20 | Outpatient (CLI) | payer OTHER ==
[~2016-10-20] MED LIST changes: -ACC10 PO; +CALC-5 PO; -CLTP PO; -DIAZ2TAB PO; +ESCI10TA17 PO; -ESCI1TAB6 PO; -METO1TAB31 PO; +METO25TA3 PO; +QUIN40TA18 PO
--- NOTE | 2016-10-21 07:57 | MAMMOGRAPHY REPORT ---
BILATERAL DIGITAL SCREENING MAMMOGRAM TOMOSYNTHESIS WITH CAD: 10/20/2016 CLINICAL HISTORY: Routine screening examination. TECHNIQUE: Breast tomosynthesis in addition to standard 2D mammography was performed. Current study was also evaluated with a Computer Aided Detection (CAD) system. COMPARISON: Comparison is made to exams dated: 10/18/2015 mammogram, 10/15/2014 mammogram, 10/12/2013 ma mmogram, 09/19/2012 mammogram, 03/21/2012 ultrasound, and 03/21/2012 mammogram - [facility] enter. BREAST COMPOSITION: There are scattered areas of fibroglandular density in both breasts. FINDINGS: There are stable asymmetries in the lateral right breast, and diffuse bilateral coarse and rodlike benign appearing calcifications in the breasts. No new suspicious mass, architectural distor tion or cluster of microcalcifications is seen. IMPRESSION: ACR BI-RADS CATEGORY 1: NEGATIVE There is no mammographic evidence of malignancy. A 1 year screening mammogram is recommended. The pa tient will receive written notification of the results. Approximately 10% of breast cancers are not detected with mammography. A negative mammographic report should not delay biopsy if a clinically suggestive mass is present. Bisi Ramirez M.D. ay/:10/20/2016 15:45:50 Farm Agent: Nickie WINSTON(Jeremy)([place]fe[place]), [facility] letter sent: Normal 1/2 BI-RADS Code: ACR BI-RADS Category 1: Negative
== END | disposition home or self-care (01) ==
LOC: C.MAMM 08:59
PROVIDERS: ATTEND Internal Medicine
DX: Z12.31 Encounter for screening mammogram for malignant neoplasm of breast (principal)

== ENCOUNTER → 2017-01-14 | Outpatient (CLI) | payer OTHER ==
--- NOTE | 2017-01-14 18:38 | DIAGNOSTIC IMAGING REPORT ---
CHEST 2 VIEWS ROUTINE CLINICAL HISTORY: 71 years-old Female presenting with UPPER RESPIRATORY INFECTION. TECHNIQUE: PA and lateral views of the chest were obtained. COMPARISON: 09/27/2016. FINDINGS: Cardiomediastinal silhouette normal. Left lower lobe opacity in the retrocardiac region. Small left pleural effusion suggested. No pneumothorax. Degenerative changes of the spine as well as dextrocurvature of the thoracolumbar junction. Cervical fusion hardware noted. Upper abdomen normal. IMPRESSION: 1. Findings consistent with left lower lobe pneumonia. Electronically signed by: Nael Bojorquez M.D. 01/14/2017 6:37 PM Dictated Date/Time: 01/14/2017 6:35 PM
== END | disposition home or self-care (01) ==
LOC: C.RAD 17:46
PROVIDERS: ATTEND Nurse Practitioner Adult Health
DX: J06.9 Acute upper respiratory infection, unspecified (principal)

== ENCOUNTER → 2017-02-05 | Outpatient (CLI) | payer OTHER ==
--- NOTE | 2017-02-05 09:59 | DIAGNOSTIC IMAGING REPORT ---
CHEST 2 VIEWS ROUTINE HISTORY: 71 years-old Female J18.1 Left lower lobe [id number] follow-up study in a patient with left lower lobe pneumonia COMPARISON: Chest radiograph 01/14/2017 TECHNIQUE: PA and lateral views of the chest FINDINGS: There is improved aeration of left lung base without evidence of focal airspace consolidation to suggest residual pneumonia. No pneumothorax or pleural effusion. Mild right hemidiaphragmatic elevation. Cardiac silhouette is within normal limits. Atherosclerosis of the aorta. The bones are grossly intact. Convex right curvature of the thoracolumbar spine. Multilevel endplate spurring of the spine. Fusion hardware of the lower cervical spine. There are calcifications of the tracheobronchial tree. IMPRESSION: Improved aeration of the left lung base without evidence of residual lobar airspace disease to suggest pneumonia. The above report was generated using voice recognition software. It may contain grammatical, syntax or spelling errors. Electronically signed by: Atif Villareal M.D. 02/05/2017 9:58 AM Dictated Date/Time: 02/05/2017 9:56 AM
== END | disposition home or self-care (01) ==
LOC: C.LABBC 09:14
PROVIDERS: ATTEND Nurse Practitioner Adult Health
DX: J18.1 Lobar pneumonia, unspecified organism (principal)

== ENCOUNTER → 2017-03-25 | Outpatient (CLI) | payer OTHER ==
--- NOTE | 2017-03-25 10:27 | DIAGNOSTIC IMAGING REPORT ---
R HIP UNILATERAL 2 VIEWS HISTORY: 71 years-old Female M16.11 Arthritis of right [id number] chronic right hip pain COMPARISON: Leg length study 10/28/2015 TECHNIQUE: 2 views of the right hip FINDINGS: There mild degenerative changes of the right femoral acetabular joint. No acute fracture or subluxation identified. Imaged right hemipelvis appears intact. Degenerative changes are also noted within the right SI joint. Peripheral vascular disease. IMPRESSION: Degenerative changes as above without acute fracture or subluxation. The above report was generated using voice recognition software. It may contain grammatical, syntax or spelling errors. Electronically signed by: Atif Villareal M.D. 03/25/2017 10:26 AM Dictated Date/Time: 03/25/2017 10:24 AM
== END | disposition home or self-care (01) ==
LOC: C.RADBC 10:03
PROVIDERS: ATTEND Internal Medicine
DX: M16.11 Unilateral primary osteoarthritis, right hip (principal)

== ENCOUNTER → 2017-04-15 | Outpatient (CLI) | payer OTHER ==
--- NOTE | 2017-04-15 15:46 | DIAGNOSTIC IMAGING REPORT ---
TWO VIEW CHEST CLINICAL HISTORY: Productive cough. FINDINGS: PA and lateral chest radiographs are compared to study dated 02/05/2017. The heart is enlarged and there is atherosclerotic calcification of the thoracic aorta. The pulmonary vasculature is noncongested. Chronic interstitial thickening is similar to previous. The lungs and pleural spaces are clear. There is no pneumothorax. The skeletal structures are osteopenic. Degenerative change and mild scoliosis is noted in the thoracic spine. Fusion hardware is noted in the lower cervical spine. IMPRESSION: Mild cardiac enlargement with no active disease in the chest. Electronically signed by: Marvin Hirsch M.D. 04/15/2017 3:44 PM Dictated Date/Time: 04/15/2017 3:43 PM
== END | disposition home or self-care (01) ==
LOC: C.RADBC 14:43
PROVIDERS: ATTEND Nurse Practitioner Adult Health
DX: R05 Cough (principal)

== ENCOUNTER → 2017-10-14 | Outpatient (CLI) | payer OTHER ==
[~2017-10-14] MED LIST changes: -AMLO-110 PO; +AMLO5TAB3 PO; +QUIN1TAB49 PO; -QUIN40TA18 PO; +WARF4TAB8 PO
[2017-10-14 11:05] LABS: BASO % 0.3 %; BASO ABS # 0.02 K/uL (0-0.2); EOS % 4.3 %; EOS ABS # 0.25 K/uL (0-0.5); HEMATOCRIT 41.7 % (37-47); HEMOGLOBIN 14.2 g/dL (12.0-16.0); IG# 0.01 K/uL (0.00-0.02); LYMPH % 29.4 %; MEAN CELL VOLUME 95.6 fL (80-100); MEAN CORPUSCULAR HEMOGLOBIN 32.6 pg (25-34); MEAN CORPUSCULAR HGB CONC 34.1 g/dl (32-36); MEAN PLATELET VOLUME 11.1 fL (7.4-10.4); MONO % 7.1 %; MONO ABS # 0.41 K/uL (0.11-0.59); NEUT % 58.7 %; PLATELET COUNT 198 K/uL (130-400); RED CELL DISTRIBUTION WIDTH CV 13.4 % (11.5-14.5); RED CELL DISTRIBUTION WIDTH SD 47.2 fL (36.4-46.3); WHITE BLOOD COUNT 5.79 K/uL (4.8-10.8)
[2017-10-14 11:40] LABS: ALBUMIN 3.8 gm/dl (3.4-5.0); ALKALINE PHOSPHATASE 71 U/L (45-117); ALT/SGPT 24 U/L (12-78); AST/SGOT 20 U/L (15-37); BLOOD UREA NITROGEN 21 mg/dl (7-18); CALCIUM 9.5 mg/dl (8.5-10.1); CARBON DIOXIDE 30 mmol/L (21-32); CHOLESTEROL 177 mg/dl (0-200); CREATININE 0.68 mg/dl (0.60-1.20); GLUCOSE 86 mg/dl (70-99); LDL CHOLESTEROL CALCULATED 101 mg/dl; POTASSIUM 3.9 mmol/L (3.5-5.1); SODIUM 136 mmol/L (136-145); TOTAL PROTEIN 7.1 gm/dl (6.4-8.2)
== END | disposition home or self-care (01) ==
LOC: C.LABBC 08:35
PROVIDERS: ATTEND Internal Medicine
DX: E11.9 Type 2 diabetes mellitus without complications (principal); E78.5 Hyperlipidemia, unspecified; M48.061 Spinal stenosis, lumbar region without neurogenic claudication; D72.819 Decreased white blood cell count, unspecified; I48.91 Unspecified atrial fibrillation; Z79.01 Long term (current) use of anticoagulants; G89.4 Chronic pain syndrome; I10 Essential (primary) hypertension

== ENCOUNTER → 2017-10-22 | Outpatient (CLI) | payer OTHER ==
--- NOTE | 2017-10-22 15:41 | MAMMOGRAPHY REPORT ---
BILATERAL DIGITAL SCREENING MAMMOGRAM TOMOSYNTHESIS WITH CAD: 10/22/2017 CLINICAL HISTORY: Routine screening. Patient has no complaints. TECHNIQUE: The study was acquired using full field digital technology and interpreted from soft copy. Breast tomosynthesis in addition to standard 2D mammography was performed. Current study was also ev aluated with a Computer Aided Detection (CAD) system. COMPARISON: Comparison is made to exams dated: 10/20/2016 mammogram, 10/18/2015 mammogram, 10/15/2014 m ammogram, 10/12/2013 mammogram, 09/19/2012 mammogram, and 03/21/2012 mammogram - [facility] nter. BREAST COMPOSITION: The tissue of both breasts is heterogeneously dense, which may obscure small mass es. FINDINGS: No suspicious masses, calcifications, or areas of architectural distortion are noted in either breast . There has been no significant interval change compared to prior exams. Scattered bilateral benign-a ppearing calcifications are not significantly changed. IMPRESSION: ACR BI-RADS CATEGORY 2: BENIGN There is no mammographic evidence of malignancy. A 1 year screening mammogram is recommended.( [id number]) The patient will receive written notification of the results. Some breast cancers are not detected with mammography. A negative mammographic report should not shaista y biopsy if a clinically suggestive mass is present. Yisel Snyder M.D. /:10/22/2017 12:39:37 Licensed Home Inspector: RT Esvin(R)(M), [facility] letter sent: Normal 1/2 BI-RADS Code: ACR BI-RADS Category 2: Benign
== END | disposition home or self-care (01) ==
LOC: C.MAMM 08:39
PROVIDERS: ATTEND Internal Medicine
DX: Z12.31 Encounter for screening mammogram for malignant neoplasm of breast (principal)

== ENCOUNTER 2019-12-14 08:15 | Inpatient (IN) ==
[2019-12-14] MEDS ORDERED: KETOROLAC TROMETHAMINE 15 MG/ML VIAL IV STA (08:27)
[2019-12-14] MEDS ORDERED: diphenhydrAMINE 50 MG/ML VIAL IV STA (08:27)
[2019-12-14] MEDS ORDERED: MoRPHine SULFATE 4 MG/ML 1 ML CARP\\VIAL IV PRN (08:27)
[2019-12-14] MEDS ORDERED: SODIUM CHLORIDE 0.9% 1000ML 1,000 ML IV ONE (08:27)
[2019-12-14] MEDS ORDERED: ONDANSETRON INJ 2 MG/ML 2 ML VIAL IV STA (08:27)
--- NOTE | 2019-12-14 08:33 | Emergency Department Note ---
Impression & Plan Acute dehydration, Vomiting and diarrhea, Lower abdominal pain, Enteritis, Person under investigation for COVID-19 ED Provider Note NAME: DEBBIE ANTHONY AGE: 74 SEX: F : 1945 ARRIVES VIA: Ambulance INFORMANT: [Patient][ems] ED PROVIDER(S): [Marvin Henry MD] CHIEF COMPLAINT: Vomiting and diarrhea HISTORY OF PRESENT ILLNESS: The patient is a 74-year-old female who states that 6 days ago, she developed diarrhea and some lower abdominal pain. She has had diarrhea throughout the last 6 days. She has abdominal pain that is a 7/10 and slightly worse when she has to have a bowel movement. She has pain radiating to her back. Both sides of the lower abdomen seem sore. Patient states that she has had some chills, no documented fever. No cough, cold or congestion. No respiratory complaints. She has not had urinary complaints. She has not noticed blood in the diarrhea. Patient states that this morning, in the retail event assistant, she began having nausea and dry heaving. She continues to have diarrhea. She presents by ambulance. Of note, the patient has a pending coronavirus test from 2 days ago. REVIEW OF SYSTEMS: See HPI for pertinent positives and negatives. A total of ten systems were reviewed and were otherwise negative. PMHx/PSHx: See Below SOCIAL HISTORY: See Below. PHYSICAL EXAM: GENERAL: Patient is in no acute distress. HEENT: No acute trauma, normocephalic atraumatic, mucous membranes dry, no nasal congestion, no scleral icterus. NECK: No stridor, no adenopathy, no meningismus, trachea is midline. LUNGS: No respiratory distress, no accessory muscle use, normal respiratory rate. HEART: Irregular rhythm, normal rate. Equal radial pulses bilaterally. ABDOMEN: Soft, moderately tender to the lower abdomen bilaterally, bowel sounds positive, no hernias, no peritonitis. EXTREMITIES: No cyanosis or edema, full range of motion of all the joints without pain or difficulty, no signs for acute trauma. NEUROLOGIC: Oriented x 3, no acute motor or sensory deficits, no focal weakness. SKIN: No rash, no jaundice, no diaphoresis. DIFFERENTIAL DIAGNOSIS: Appendicitis, ovarian cyst, ovarian torsion, infections, diverticulitis, UTI, coronavirus, dehydration, colitis, obstruction, mesenteric ischemia, aortic pathology, inflammatory bowel disease, renal colic, PUD, pancreatitis, biliary pathology, hernia, volvulus, constipation, as well as other pathologies. EMERGENCY DEPARTMENT COURSE/PROCEDURES: ECG: Indication was A. fib. The ECG shows atrial fibrillation with a rate of 75. There is no ST elevation, no PVCs. The QTc is 433. Continuous Cardiac Monitoring: An order was placed for continuous cardiac monitoring. The monitor shows a rate of 95 with atrial fibrillation. MEDICAL DECISION MAKING: There is a mild leukocytosis, no concerning anemia. There is a normal platelet count. INR is 2.4, consistent with her Coumadin use. Potassium slightly low at 3.3, no kidney failure. Bilirubin was slightly elevated at 1.3, the remaining liver enzymes were unremarkable. No evidence for pancreatitis. ECG shows atrial fibrillation, no acute ischemia. Cardiac enzyme testing x1 is not consistent with acute cardiac injury. Urinalysis does not show infection but some hematuria was noted. Abdominal and pelvis CT does not show any evidence for bowel obstruction. Some enteritis was suspected. There was no d iverticulitis. Chest film did not show pneumonia or CHF. No free air. The patient has had GI symptoms for almost 1 week. She does have an outpatient coronavirus test pending. She was isolated here in the ED. The patient received IV saline for hydration, she was given IV lactated Ringer's for hydration. She received IV Zofran for nausea, IV morphine for pain. She was given IV Toradol for pain control. She was given IV Benadryl for additional nausea control. The patient is in need of a hospital stay. She is dehydrated. She is persisting with nausea and vomiting. She has enteritis on CT. She does have a COVID test pending although, my suspicion for coronavirus is low. The patient is resting comfortably. She feels improved since being medicated. I did speak with the case management team, the on-call hospitalist was consulted. Past Med/Surg History Medical History Anticoagulated on Coumadin Anxiety Diverticulosis GERD (gastroesophageal reflux disease) History of colon polyps Hyperlipidemia Hypertension Leukopenia Lumbar canal stenosis Lymphedema Permanent atrial fibrillation Premature ventricular contractions (PVCs) (VPCs) Scleroderma dx years ago but currently asymptomatic Sicca syndrome Surgical History History of carpal tunnel surgery History of Mohs micrographic surgery for skin cancer History of total abdominal hysterectomy History of tubal ligation Status post spinal disc removal C2-C3 Family History (Updated 12/14/19 @ 12:34 by Jose Montiel) Son , age 48 from influenza Alcoholism Mother Family history of CABG Osteoporosis Vascular dementia Father Coronary heart disease Hypertension Peripheral vascular disease Brother Coronary heart disease Social History Smoking Status: Never smoker Hx Alcohol Use: Yes Alcohol type: wine Hx Substance Use: No Preferred Language: Greenlandic Communication Ability: Effective Hearing Ability: Normal 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 Unverified 12/14/19 11:43 Sulfa (Sulfonamide Allergy Mild Verified 12/14/19 11:43 Antibiotics) adhesive tape Allergy Verified 12/14/19 11:43 cyclosporine [From Restasis] Allergy Verified 12/14/19 11:43 doxycycline Allergy Verified 12/14/19 11:43 metaxalone [From Skelaxin] Allergy Verified 12/14/19 11:43 Home Meds Home Medications Medication Instructions Recorded Confirmed acetaminophen 650 mg PO TID PRN #0 cap 09/27/16 12/14/19 escitalopram oxalate [Lexapro] 10 mg PO HS #0 tab 09/27/16 12/14/19 calcium carbonate 500 mg (1,250 1 tab PO DAILY #0 tab 12/20/18 12/14/19 mg)-vitamin D3 200 unit tablet metoprolol succinate 25 mg 12.5 mg PO HS #0 tab 01/24/19 12/14/19 tablet,extended release 24 hr azelastine 1 sprays INTRANASAL DAILY PRN 12/14/19 12/14/19 Previous Rx's Medication Instructions Recorded quinapril 40 mg tablet 40 mg PO HS #90 tab 02/14/19 omeprazole magnesium 20 mg 20 mg PO DAILY #90 cap 05/17/19 tablet,delayed release warfarin 4 mg tablet See Rx Instructions PO DAILY #90 07/19/19 tab Results & Data (ED) Vital Signs Vital Signs - 24 hr 12/14/19 08:19 12/14/19 08:24 12/14/19 08:35 Temperature Temperature Source Pulse Rate 91 H 84 Pulse Rate from SpO2 Sensor 86 82 88 Pulse Rhythm Pulse Strength Respiratory Rate 23 22 Respiratory Effort / Characteristics Respiratory Depth Blood Pressure 129/77 Blood Pressure Mean 97 Blood Pressure Position Pulse Oximetry 98 95 Oxygen Delivery Method Sepsis Recent Fever Within 48 Hours Sepsis New/Unexplained Change in Mental Status Sepsis Action Taken by Nursing 12/14/19 08:45 12/14/19 09:00 12/14/19 09:06 Temperature 36.6 C Temperature Source Oral Pulse Rate 90 92 H Pulse Rate from SpO2 Sensor 89 Pulse Rhythm Regular Pulse Strength Normal Respiratory Rate 22 20 Respiratory Effort / Characteristics Non-Labored Respiratory Depth Normal Blood Pressure 129/77 Blood Pressure Mean 94 Blood Pressure Position Lying Pulse Oximetry 94 94 Oxygen Delivery Method Room Air Room Air Sepsis Recent Fever Within 48 Hours No Sepsis New/Unexplained Change in Mental Status No Sepsis Action Taken by Nursing No Action Required 12/14/19 09:33 12/14/19 10:00 12/14/19 10:30 Temperature Temperature Source Pulse Rate 88 96 H 104 H Pulse Rate from SpO2 Sensor 89 92 H Pulse Rhythm Pulse Strength Respiratory Rate 22 17 19 Respiratory Effort / Characteristics Respiratory Depth Blood Pressure Blood Pressure Mean Blood Pressure Position Pulse Oximetry 93 96 Oxygen Delivery Method Sepsis Recent Fever Within 48 Hours Sepsis New/Unexplained Change in Mental Status Sepsis Action Taken by Nursing 12/14/19 10:50 12/14/19 11:00 12/14/19 11:30 Temperature Temperature Source Pulse Rate 99 H 91 H Pulse Rate from SpO2 Sensor Pulse Rhythm Pulse Strength Respiratory Rate 22 20 Respiratory Effort / Characteristics Respiratory Depth Blood Pressure 147/80 H 140/89 153/84 H Blood Pressure Mean 95 110 97 Blood Pressure Position Pulse Oximetry Oxygen Delivery Method Sepsis Recent Fever Within 48 Hours Sepsis New/Unexplained Change in Mental Status Sepsis Action Taken by Nursing 12/14/19 12:00 Temperature Temperature Source Pulse Rate 103 H Pulse Rate from SpO2 Sensor Pulse Rhythm Pulse Strength Respiratory Rate 20 Respiratory Effort / Characteristics Respiratory Depth Blood Pressure 156/91 H Blood Pressure Mean 106 Blood Pressure Position Pulse Oximetry Oxygen Delivery Method Sepsis Recent Fever Within 48 Hours Sepsis New/Unexplained Change in Mental Status Sepsis Action Taken by Jail Medications Current Medication List: was personally reviewed by me Laboratory Data Attestation: I reviewed the patient's lab results. Result diagrams: 12/14/19 08:32 12/14/19 09:47 Lab Results 12/14/19 12/14/19 12/14/19 Range/Units 08:15 08:32 08:32 WBC 10.44 (4.8-10.8) K/uL RBC 4.71 (4.2-5.4) M/uL Hgb 15.7 (12.0-16.0) g/dL Hct 46.2 (37-47) % MCV 98.1 (80-100) fL MCH 33.3 (25-34) pg MCHC 34.0 (32-36) g/dL RDW Std Deviation 47.8 H (36.4-46.3) fL RDW Coeff of Lobo 13.2 (11.5-14.5) % Plt Count 170 (130-400) K/uL MPV 10.6 H (7.4-10.4) fL Immature Gran % (Auto) 0.2 % Neut % (Auto) 86.4 % Lymph % (Auto) 6.2 % [place] % (Auto) 6.2 % Eos % (Auto) 0.9 % Baso % (Auto) 0.1 % Neut # (Auto) 9.02 H (1.4-6.5) K/uL Lymph # (Auto) 0.65 L (1.2-3.4) K/uL [place] # (Auto) 0.65 H (0.11-0.59) K/uL Eos # (Auto) 0.09 (0-0.5) K/uL Baso # (Auto) 0.01 (0-0.2) K/uL Immature Gran # (Auto) 0.02 (0.00-0.02) K/uL PT Cancelled INR Cancelled APTT Cancelled PTT Ratio Cancelled Sodium (136-145) mmol/L Potassium (3.5-5.1) mmol/L Chloride (98-107) mmol/L Carbon Dioxide (21-32) mmol/L Anion Gap (3-11) BUN (7-18) mg/dl Creatinine (0.6-1.2) mg/dl Est Cr Clr Drug Dosing ml/min Est GFR ( Amer) Est GFR (Non-Af Amer) BUN/Creatinine Ratio (10-20) Glucose (70-99) mg/dl Calcium (8.5-10.1) mg/dl Magnesium (1.8-2.4) mg/dl Total Bilirubin (0.2-1) mg/dl AST (15-37) U/L ALT (12-78) U/L Alkaline Phosphatase (45-117) U/L Troponin I (0-0.045) ng/ml Total Protein (6.4-8.2) gm/dl Albumin (3.4-5.0) gm/dl Globulin (2.5-4.0) gm/dl Albumin/Globulin Ratio (0.9-2) Lipase (73-393) U/L Urine Color Yellow Urine Appearance Cloudy A (Clear) Urine pH 8.0 H (4.5-7.5) Ur Specific Accord 1.014 (1.000-1.030) Urine Protein 2+ H (Negative) Urine Glucose (UA) Negative (Negative) Urine Ketones Trace H (Negative) Urine Blood 3+ H (Negative) Urine Nitrite Negative (Negative) Urine Bilirubin Negative (Negative) Urine Urobilinogen Negative (Negative) Ur Leukocyte Esterase Negative (Negative) Urine WBC (Auto) 1-5 (0-5) /hpf Urine RBC (Auto) >30 H (0-4) /hpf U Hyaline Cast (Auto) 1-5 (0-5) /lpf U Epithel Cells (Auto) >30 H (0-5) /lpf Urine Bacteria (Auto) 1+ H (Negative) Ur Renal Epithelial Cell Not Reportable Urine Mucus Present A (None Prsent) 12/14/19 12/14/19 12/14/19 Range/Units 08:32 09:47 09:47 WBC (4.8-10.8) K/uL RBC (4.2-5.4) M/uL Hgb (12.0-16.0) g/dL Hct (37-47) % MCV (80-100) fL MCH (25-34) pg MCHC (32-36) g/dL RDW Std Deviation (36.4-46.3) fL RDW Coeff of Lobo (11.5-14.5) % Plt Count (130-400) K/uL MPV (7.4-10.4) fL Immature Gran % (Auto) % Neut % (Auto) % Lymph % (Auto) % [place] % (Auto) % Eos % (Auto) % Baso % (Auto) % Neut # (Auto) (1.4-6.5) K/uL Lymph # (Auto) (1.2-3.4) K/uL [place] # (Auto) (0.11-0.59) K/uL Eos # (Auto) (0-0.5) K/uL Baso # (Auto) (0-0.2) K/uL Immature Gran # (Auto) (0.00-0.02) K/uL PT 24.0 H INR 2.4 H APTT 40.4 H PTT Ratio 1.4 Sodium 132 L (136-145) mmol/L Potassium 3.3 L (3.5-5.1) mmol/L Chloride 99 (98-107) mmol/L Carbon Dioxide 25 (21-32) mmol/L Anion Gap 7.0 (3-11) BUN 20 H (7-18) mg/dl Creatinine 0.80 (0.6-1.2) mg/dl Est Cr Clr Drug Dosing 45.8 ml/min Est GFR ( Amer) 83.6 Est GFR (Non-Af Amer) 72.1 BUN/Creatinine Ratio 24.5 H (10-20) Glucose 126 H (70-99) mg/dl Calcium 10.0 (8.5-10.1) mg/dl Magnesium 2.0 (1.8-2.4) mg/dl Total Bilirubin 1.3 H (0.2-1) mg/dl AST 15 (15-37) U/L ALT 27 (12-78) U/L Alkaline Phosphatase 79 (45-117) U/L Troponin I 0.019 (0-0.045) ng/ml Total Protein 7.9 (6.4-8.2) gm/dl Albumin 3.9 (3.4-5.0) gm/dl Globulin 4.0 (2.5-4.0) gm/dl Albumin/Globulin Ratio 1.0 (0.9-2) Lipase 189 (73-393) U/L Urine Color Urine Appearance (Clear) Urine pH (4.5-7.5) Ur Specific Accord (1.000-1.030) Urine Protein (Negative) Urine Glucose (UA) (Negative) Urine Ketones (Negative) Urine Blood (Negative) Urine Nitrite (Negative) Urine Bilirubin (Negative) Urine Urobilinogen (Negative) Ur Leukocyte Esterase (Negative) Urine WBC (Auto) (0-5) /hpf Urine RBC (Auto) (0-4) /hpf U Hyaline Cast (Auto) (0-5) /lpf U Epithel Cells (Auto) (0-5) /lpf Urine Bacteria (Auto) (Negative) Ur Renal Epithelial Cell Urine Mucus (None Prsent) Administered Medications Potassium Chloride/Sodium Chloride (Normal Saline W/20 Meq Kcl) 20 meq in 1,000 mls @ 100 mls/hr IV .Q10H RODRIGUEZ Stop: 01/13/20 14:29 Last Admin: 12/14/19 15:37 Dose: 100 mls/hr Documented by: [id number] Miscellaneous (Azelastine: Order Awaiting Action) 1 ea N/A QS RODRIGUEZ Stop: 01/13/20 15:59 Last Admin: 12/14/19 14:47 Dose: Not Given Documented by: [id number] Potassium Chloride (Potassium Chloride 10 Meq Tabcr) 10 meq PO BID RODRIGUEZ Stop: 01/13/20 14:29 Last Admin: 12/14/19 15:36 Dose: 10 meq Documented by: [id number] Warfarin Sodium (Warfarin Sod 6 Mg Tab) 6 mg PO MoTh@1600 RODRIGUEZ Stop: 01/13/20 15:59 Last Admin: 12/14/19 15:36 Dose: 6 mg Documented by: [id number] Discontinued Medications Diphenhydramine HCl (Diphenhydramine Hcl 50 Mg/Ml Vial) 12.5 mg IV NOW STA Stop: 12/14/19 08:28 Last Admin: 12/14/19 08:53 Dose: 12.5 mg Documented by: [id number] Sodium Chloride (Nss 1000ml) 1,000 mls @ 999 mls/hr IV .Q1H1M ONE Stop: 12/14/19 09:27 Last Infusion: 12/14/19 10:00 Dose: 0 mls/hr Documented by: [id number] Admin: 10/08/20 08:53 Dose: 999 mls/hr Documented by: [id number] Lactated Ringer's (Lr) 1,000 mls @ 999 mls/hr IV .Q1H1M STA Stop: 12/14/19 12:18 Last Infusion: 12/14/19 14:51 Dose: 0 mls/hr Documented by: [id number] Admin: 12/14/19 13:27 Dose: 999 mls/hr Documented by: [id number] Ketorolac Tromethamine (Ketorolac Tromethamine 15 Mg/Ml Vial) 10 mg IV NOW STA Stop: 12/14/19 08:28 Last Admin: 12/14/19 08:53 Dose: 10 mg Documented by: [id number] Morphine Sulfate (Morphine Sulfate 4 Mg/Ml 1 Ml Carp\Vial) 2 mg IV Q15M PRN PRN Reason: Pain Stop: 12/28/19 08:26 Last Admin: 12/14/19 08:53 Dose: 2 mg Documented by: [id number] Ondansetron HCl (Ondansetron Inj 2 Mg/Ml 2 Ml Vial) 4 mg IV NOW STA Stop: 12/14/19 08:28 Last Admin: 12/14/19 08:53 Dose: 4 mg Documented by: [id number] Imaging Data Radiologist's Impression: SINGLE VIEW CHEST CLINICAL HISTORY: Generalized abdominal pain. FINDINGS: An AP, portable, upright chest radiograph is compared to study dated 09/27/2016. Correlation is made with chest CT dated 12/29/2010. The examination is mildly degraded by portable technique and patient rotation. The heart is mildly enlarged noting atherosclerotic calcification of the thoracic aorta. The pulmonary vasculature is noncongested. The lungs and pleural spaces are clear. No pneumothorax is seen. The skeletal structures are osteopenic. The bony thorax is grossly intact. Fusion hardware is seen in the lower cervical spine. Degenerative change is also noted in the thoracic spine. IMPRESSION: No active disease in the chest. CT SCAN OF THE ABDOMEN AND PELVIS WITHOUT CONTRAST CLINICAL HISTORY: Nausea, vomiting, diarrhea. Abdominal pain COMPARISON STUDY: June 2010 TECHNIQUE: CT scan of the abdomen and pelvis was performed from the lung bases to the proximal femurs. Images are reviewed in the axial, sagittal, and coronal planes. IV contrast was not administered for this examination. A dose lowering technique was utilized adhering to the principles of ALARA. CT DOSE: 227.73 mGy.cm FINDINGS: Lower chest: The heart is enlarged. There are no pleural effusions. There is no basilar consolidation Liver: There is an enlarging 6.6 cm left hepatic lobe cyst. There is also an 8 mm left lobe hepatic hypodensity which likely represents a second cyst. Gallbladder: Unremarkable. Spleen: Normal in size and attenuation. Pancreas: Unremarkable. Adrenal glands: Unremarkable. Kidneys: There are bilateral renal hypodensities likely representing cysts. There is also a subtle 4 mm hyperdense focus within the right kidney statistically representing a hyperdense cyst. There is no hydronephrosis. No renal, ureteral, or bladder calculi are visualized. Bowel: There are no transition zones to indicate bowel obstruction. There is extensive sigmoid diverticulosis. There is no evidence of acute diverticulitis. The appendix is not visualized with certainty. There is no convincing evidence of acute appendicitis. There multiple fluid-filled small bowel loops. There is borderline wall thickening involving proximal jejunal loops. An enteritis cannot be excluded. Peritoneum: There is no intraperitoneal free air or abdominal ascites. Vasculature: The abdominal aorta is normal in course and caliber. Adenopathy: None. Pelvic viscera: The uterus appears surgically absent Skeletal structures: No destructive osseous lesions are seen. IMPRESSION: 1. Examination limited by lack of intravenous and oral contrast 2. No evidence of bowel obstruction. No evidence of free air 3. Multiple fluid-filled small bowel loops with borderline jejunal wall thickening. An enteritis cannot be excluded 4. No renal, ureteral, or bladder calculi identified 5. Extensive diverticulosis. No evidence of acute diverticulitis. 6. Nonvisualization of the appendix, but no secondary findings to indicate acute appendicitis Blood Pressure Blood Pressure Findings: Elevated blood pressure Blood Pressure Disposition: further management by hospitalist Discharge Plan Visit Data Chief Complaint: Illness ED Provider: Marvin Henry Discharge Problem: Acute dehydration, Vomiting and diarrhea, Lower abdominal pain, Enteritis, Person under investigation for COVID-19 Patient Disposition: Admitted As Inpatient Condition: Good Discharge Instructions Interventions: ED Discharge Assessment Last Done: 12/14/19 13:44
[2019-12-14 09:12] LABS: Basophils # (auto) 0.01 K/uL (0-0.2); Basophils % (auto) 0.1 %; Eosinophils # (auto) 0.09 K/uL (0-0.5); Eosinophils % (auto) 0.9 %; Hematocrit (blood only) 46.2 % (37-47); Hemoglobin 15.7 g/dL (12.0-16.0); Immature Granulocytes # (auto) 0.02 K/uL (0.00-0.02); Immature Granulocytes % (auto) 0.2 %; Lymphocytes # (auto) 0.65 K/uL (1.2-3.4); Lymphocytes % (auto) 6.2 %; Mean Corpuscular Hemoglobin 33.3 pg (25-34); Mean Corpuscular Volume 98.1 fL (80-100); Mean Platelet Volume 10.6 fL (7.4-10.4); Monocytes # (auto) 0.65 K/uL (0.11-0.59); Monocytes % (auto) 6.2 %; Neutrophils # (auto) 9.02 K/uL (1.4-6.5); Neutrophils % (auto) 86.4 %; Platelet Count 170 K/uL (130-400); RDW Coefficient of Variation 13.2 % (11.5-14.5); RDW Standard Deviation 47.8 fL (36.4-46.3); Red Blood Count 4.71 M/uL (4.2-5.4); White Blood Count 10.44 K/uL (4.8-10.8)
[2019-12-14 09:16] LABS: Appearance Urine Cloudy (Clear); Bilirubin Urine Negative (Negative); Blood Urine 3+ (Negative); Color Urine Yellow; Epithelial Cell Urine Auto >30 /lpf (0-5); Glucose Urine UA Negative (Negative); Ketones Urine Trace (Negative); Leukocyte Esterase Urine Negative (Negative); Nitrite Urine Negative (Negative); RBC Urine Automated >30 /hpf (0-4); Specific Gravity Urine 1.014 (1.000-1.030); Urobilinogen Urine Negative (Negative)
--- NOTE | 2019-12-14 09:30 | XRay Report ---
SINGLE VIEW CHEST CLINICAL HISTORY: Generalized abdominal pain. FINDINGS: An AP, portable, upright chest radiograph is compared to study dated 09/27/2016. Correlation is made with chest CT dated 12/29/2010. The examination is mildly degraded by portable technique and patient rotation. The heart is mildly enlarged noting atherosclerotic calcification of the thoraci c aorta. The pulmonary vasculature is noncongested. The lungs and pleural spaces are clear. No pneumo thorax is seen. The skeletal structures are osteopenic. The bony thorax is grossly intact. Fusion radha dware is seen in the lower cervical spine. Degenerative change is also noted in the thoracic spine. IMPRESSION: No active disease in the chest. ACT 112: Negative or not required by law. Electronically signed by: Marvin Hirsch M.D. 12/14/2019 9:29 AM
[2019-12-14 09:33] LABS: Protein Urine 2+ (Negative); Sulfosalicylic Acid Urine Positive (Negative)
[2019-12-14 09:35] LABS: Mucus Urine Present (None Prsent)
[2019-12-14 09:37] LABS: Bacteria Urine Automated 1+ (Negative)
[2019-12-14 09:38] LABS: Albumin Level 3.9 gm/dl (3.4-5.0); BUN Creatinine Ratio 24.5 (10-20); Bilirubin,Total 1.3 mg/dl (0.2-1); Creatinine Clr Calc Pharmacy 45.8 ml/min; Est GFR (African American) 83.6; Est GFR (Non-African American) 72.1; Total Protein 7.9 gm/dl (6.4-8.2); Troponin I 0.019 ng/ml (0-0.045)
--- NOTE | 2019-12-14 09:44 | CT Scan Report ---
CT SCAN OF THE ABDOMEN AND PELVIS WITHOUT CONTRAST CLINICAL HISTORY: Nausea, vomiting, diarrhea. Abdominal pain COMPARISON STUDY: June 2010 TECHNIQUE: CT scan of the abdomen and pelvis was performed from the lung bases to the proximal femurs . Images are reviewed in the axial, sagittal, and coronal planes. IV contrast was not administered fo r this examination. A dose lowering technique was utilized adhering to the principles of ALARA. CT DOSE: 227.73 mGy.cm FINDINGS: Lower chest: The heart is enlarged. There are no pleural effusions. There is no basilar consolidation Liver: There is an enlarging 6.6 cm left hepatic lobe cyst. There is also an 8 mm left lobe hepatic h ypodensity which likely represents a second cyst. Gallbladder: Unremarkable. Spleen: Normal in size and attenuation. Pancreas: Unremarkable. Adrenal glands: Unremarkable. Kidneys: There are bilateral renal hypodensities likely representing cysts. There is also a subtle 4 mm hyperdense focus within the right kidney statistically representing a hyperdense cyst. There is no hydronephrosis. No renal, ureteral, or bladder calculi are visualized. Bowel: There are no transition zones to indicate bowel obstruction. There is extensive sigmoid divert iculosis. There is no evidence of acute diverticulitis. The appendix is not visualized with certainty . There is no convincing evidence of acute appendicitis. There multiple fluid-filled small bowel loop s. There is borderline wall thickening involving proximal jejunal loops. An enteritis cannot be exclu ded. Peritoneum: There is no intraperitoneal free air or abdominal ascites. Vasculature: The abdominal aorta is normal in course and caliber. Adenopathy: None. Pelvic viscera: The uterus appears surgically absent Skeletal structures: No destructive osseous lesions are seen. IMPRESSION: 1. Examination limited by lack of intravenous and oral contrast 2. No evidence of bowel obstruction. No evidence of free air 3. Multiple fluid-filled small bowel loops with borderline jejunal wall thickening. An enteritis jayme ot be excluded 4. No renal, ureteral, or bladder calculi identified 5. Extensive diverticulosis. No evidence of acute diverticulitis. 6. Nonvisualization of the appendix, but no secondary findings to indicate acute appendicitis ACT 112: Negative or not required by law. Electronically signed by: [id number] Ovalle M.D. 12/14/2019 9:42 AM
[2019-12-14 10:08] LABS: Potassium 3.3 mmol/L (3.5-5.1)
[2019-12-14 10:23] LABS: INR 2.4 (0.9-1.1); Partial Thromboplastin Ratio 1.4; Partial Thromboplastin Time 40.4 Seconds (21.0-31.0)
[2019-12-14] MEDS ORDERED: LACTATED RINGER'S 1,000 ML IV STA (11:18)
--- NOTE | 2019-12-14 11:32 | History & Physical Report ---
Date of Service December 14, 2019 Assessment & Plan (1) Gastroenteritis: unlikely to be COVID-19 but possible; small percentage (about 10%) of COVID patients present with GI symptoms alone. await COVID-19 testing. check c diff. check stool cx. supportive care. IV fluids. if bacterial causes ruled out, and if COVID-19 negative, then enterovirus, rotavirus, etc are possible etiologies. (2) Hyponatremia: 2nd to volume depletion. isotonic fluids. repeat BMP am. (3) Hypokalemia: 2nd diarrhea. replace PO and IV. repeat BMP am. (4) Dehydration: 2nd to severe gastroenteritis. IV fluids. supportive care. clear liquid diet. (5) Permanent atrial fibrillation: rates controlled. cont metoprolol. cont coumadin. INR am. (6) Generalized anxiety disorder: cont SSRI (7) Hyperlipidemia: noted not on meds at home (8) GERD (gastroesophageal reflux disease): cont PPI daily H2 kade prn (9) Hypertension: continue home meds controlled (10) Total bilirubin, elevated: Gilbert's? no evidence of biliary tract disease. follow. (11) DVT prophylaxis: coumadin daily INR place in airborne isolation until results of COVID-19 test sent this past Wednesday to the dept of Health are known History of Present Illness Chief Complaint: severe diarrhea, vomiting, abdominal cramps Primary Care Provider: Nael Don MD 74yo female with h/o permanent a.fib on coumadin, HTN, and scleroderma years ago who presents with 7-8 days of GI symptoms. Patient reports eating at [employer] with her and a friend that visited them from out of town on Wednesday, Dec 03. The following day on Wednesday she noticed increased flatus but overall felt ok. On of last week she developed low-grade fever into the 99's, chills, abdominal cramps, and severe diarrhea. The diarrhea is liquid and nonbloody. No mucous. She has had the diarrhea since last . On some days she can have diarrhea every 15-20 minutes. She has nocturnal symptoms as well. Early this am she had severe nausea and proceeded to have dry heaves. She has felt very tired over the past week with occasional lightheadedness. Some headache. No loss of taste or smell. has had low-grade fever to 100 degrees and diarrhea as well. No obvious sick contacts. Their friend with whom they ate on Dec 03 has stayed well. No travel. Denies dyspnea, cough, chest tightness. Some myalgias. No arthralgias. Did have COVID-19 testing on Wednesday of this week. Results still pending. Flu test was negative. Allergies Allergy/AdvReac Type Severity Reaction Status Date / Time Iodinated Contrast Media Allergy Mild . Unverified 12/14/19 11:43 Sulfa (Sulfonamide Allergy Mild Verified 12/14/19 11:43 Antibiotics) adhesive tape Allergy Verified 12/14/19 11:43 cyclosporine [From Restasis] Allergy Verified 12/14/19 11:43 doxycycline Allergy Verified 12/14/19 11:43 metaxalone [From Skelaxin] Allergy Verified 12/14/19 11:43 Home Medications Home Medications Medication Instructions Recorded Confirmed Type acetaminophen 650 mg PO TID PRN #0 cap 09/27/16 12/14/19 History escitalopram oxalate [Lexapro] 10 mg PO HS #0 tab 09/27/16 12/14/19 History calcium carbonate 500 mg (1,250 1 tab PO DAILY #0 tab 12/20/18 12/14/19 History mg)-vitamin D3 200 unit tablet metoprolol succinate 25 mg 12.5 mg PO HS #0 tab 01/24/19 12/14/19 History tablet,extended release 24 hr quinapril 40 mg tablet 40 mg PO HS #90 tab 02/14/19 12/14/19 Rx omeprazole magnesium 20 mg 20 mg PO DAILY #90 cap 05/17/19 12/14/19 Rx tablet,delayed release warfarin 4 mg tablet See Rx Instructions PO DAILY #90 07/19/19 12/14/19 Rx tab azelastine 1 sprays INTRANASAL DAILY PRN 12/14/19 12/14/19 History Past Med/Surg History Medical History Anticoagulated on Coumadin Anxiety Diverticulosis GERD (gastroesophageal reflux disease) History of colon polyps Hyperlipidemia Hypertension Leukopenia Lumbar canal stenosis Lymphedema Permanent atrial fibrillation Premature ventricular contractions (PVCs) (VPCs) Scleroderma dx years ago but currently asymptomatic Sicca syndrome Surgical History History of carpal tunnel surgery History of Mohs micrographic surgery for skin cancer History of total abdominal hysterectomy History of tubal ligation Status post spinal disc removal C2-C3 Family History (Updated 12/14/19 @ 12:34 by Jose Montiel) Son , age 48 from influenza Alcoholism Mother Family history of CABG Osteoporosis Vascular dementia Father Coronary heart disease Hypertension Peripheral vascular disease Brother Coronary heart disease Social History Smoking Status: Never smoker Hx Alcohol Use: Yes Alcohol type: wine Hx Substance Use: No Preferred Language: Cymro Communication Ability: Effective Hearing Ability: Normal Air Chipper Required: No Beliefs That Will Affect Care: None marital status: Current Living Situation: Spouse Current Living Situation Comment: caregiver for current occupational status: retired current occupation: former teach How many Children do You have Comment: 1 son - he is Feels Safe at Home: Yes Safety Concerns: Feels Safe At This Time Dental Care, Regularly: Yes Physical Activity Frequency: 3-4 Times per Week Seatbelt Use: always Sunscreen Use: Yes Assistive Devices: Glasses Review of Systems Constitutional: + chills, + body aches, + fatigue, + weakness, + anorexia and + weight loss (4 pounds over last 7-10 days ); no fever Eyes: no worsening vision Ear, Nose, Mouth, Throat: no nasal congestion and no sore throat Respiratory: no cough and no dyspnea Cardiovascular: no chest pain Gastrointestinal: + abdominal pain, + nausea, + vomiting and + diarrhea/loose stools; no blood in stools Genitourinary: no dysuria Musculoskeletal: + myalgia Integumentary: no rash Neurologic: no loss of sensation Psychiatric: + anxiety Endocrine: denies diabetes Hematologic / Lymphatic: no night sweats Physical Exam Constitutional: + ill appearing; no acute distress and no altered mental status Eyes: PERRL ENMT: Ears: no TM abnormality Mouth: + dry oral mucous membranes; no oropharynx abnormality (no erythema ) Neck: trachea midline, no thyromegaly Respiratory: no respiratory distress Auscultation: + crackles (few, dry- sounding, bases only); no wheezes Cardiovascular: Rate/Rhythm: regular rate and + irregularly irregular Heart Sounds: normal S1 and normal S2; no murmur Vessels: posterior tibial pulses present and dorsalis pedis pulses present; no JVD Extremities: no edema Gastrointestinal (Abdomen): normal bowel sounds, soft, nontender, no hepatosplenomegaly Inspection/Auscultation: + abnormal bowel sounds (hyperac tive ) Musculoskeletal: no cyanosis or clubbing, extremities motor strength 5/5 Skin: no rashes, warm and dry Neurologic: deep tendon reflexes 2+ bilaterally and moves all extremities Psychiatric: Orientation: alert and oriented x 3 Lymphatic: no cervical lymphadenopathy Results & Data Results & Data ([facility]) Vital Signs (Past 12 Hours) Vital Signs Temp Pulse Resp BP Pulse Ox 12/14/19 09:06 36.6 C 92 H 20 129/77 94 12/14/19 09:00 90 22 94 12/14/19 08:35 95 12/14/19 08:24 84 22 98 12/14/19 08:19 91 H 23 129/77 Laboratory Results Laboratory Results - last 24 hr 12/14/19 12/14/19 12/14/19 08:15 08:32 08:32 WBC 10.44 RBC 4.71 Hgb 15.7 Hct 46.2 MCV 98.1 MCH 33.3 MCHC 34.0 RDW Std Deviation 47.8 H RDW Coeff of Lobo 13.2 Plt Count 170 MPV 10.6 H Immature Gran % (Auto) 0.2 Neut % (Auto) 86.4 Lymph % (Auto) 6.2 Ford % (Auto) 6.2 Eos % (Auto) 0.9 Baso % (Auto) 0.1 Neut # (Auto) 9.02 H Lymph # (Auto) 0.65 L Ford # (Auto) 0.65 H Eos # (Auto) 0.09 Baso # (Auto) 0.01 Immature Gran # (Auto) 0.02 PT Cancelled INR Cancelled APTT Cancelled PTT Ratio Cancelled Sodium Potassium Chloride Carbon Dioxide Anion Gap BUN Creatinine Est Cr Clr Drug Dosing Est GFR ( Amer) Est GFR (Non-Af Amer) BUN/Creatinine Ratio Glucose Calcium Magnesium Total Bilirubin AST ALT Alkaline Phosphatase Troponin I Total Protein Albumin Globulin Albumin/Globulin Ratio Lipase Urine Color Yellow Urine Appearance Cloudy A Urine pH 8.0 H Ur Specific [place] 1.014 Urine Protein 2+ H Urine Glucose (UA) Negative Urine Ketones Trace H Urine Blood 3+ H Urine Nitrite Negative Urine Bilirubin Negative Urine Urobilinogen Negative Ur Leukocyte Esterase Negative Urine WBC (Auto) 1-5 Urine RBC (Auto) >30 H U Hyaline Cast (Auto) 1-5 U Epithel Cells (Auto) >30 H Urine Bacteria (Auto) 1+ H Ur Renal Epithelial Cell Not Reportable Urine Mucus Present A 12/14/19 12/14/19 12/14/19 08:32 09:47 09:47 WBC RBC Hgb Hct MCV MCH MCHC RDW Std Deviation RDW Coeff of Lobo Plt Count MPV Immature Gran % (Auto) Neut % (Auto) Lymph % (Auto) Ford % (Auto) Eos % (Auto) Baso % (Auto) Neut # (Auto) Lymph # (Auto) Ford # (Auto) Eos # (Auto) Baso # (Auto) Immature Gran # (Auto) PT 24.0 H INR 2.4 H APTT 40.4 H PTT Ratio 1.4 Sodium 132 L Potassium 3.3 L Chloride 99 Carbon Dioxide 25 Anion Gap 7.0 BUN 20 H Creatinine 0.80 Est Cr Clr Drug Dosing 45.8 Est GFR ( Amer) 83.6 Est GFR (Non-Af Amer) 72.1 BUN/Creatinine Ratio 24.5 H Glucose 126 H Calcium 10.0 Magnesium 2.0 Total Bilirubin 1.3 H AST 15 ALT 27 Alkaline Phosphatase 79 Troponin I 0.019 Total Protein 7.9 Albumin 3.9 Globulin 4.0 Albumin/Globulin Ratio 1.0 Lipase 189 Urine Color Urine Appearance Urine pH Ur Specific [place] Urine Protein Urine Glucose (UA) Urine Ketones Urine Blood Urine Nitrite Urine Bilirubin Urine Urobilinogen Ur Leukocyte Esterase Urine WBC (Auto) Urine RBC (Auto) U Hyaline Cast (Auto) U Epithel Cells (Auto) Urine Bacteria (Auto) Ur Renal Epithelial Cell Urine Mucus Diagnostic Findings COVID-19 test from 12/[address] abd/pelvis: IMPRESSION: 1. Examination limited by lack of intravenous and oral contrast 2. No evidence of bowel obstruction. No evidence of free air 3. Multiple fluid-filled small bowel loops with borderline jejunal wall thickening. An enteritis cannot be excluded 4. No renal, ureteral, or bladder calculi identified 5. Extensive diverticulosis. No evidence of acute diverticulitis. 6. Nonvisualization of the appendix, but no secondary findings to indicate acute appendicitis CXR: no infiltrates EKG: a.fib, rate <100, no ST changes Code Status & VTE Plan Code Status DNR/DNI VTE Prophylaxis Plan VTE Prophylaxis will be ordered: Yes PG Care Time/CCT Total # of Minutes Spent Total Time Spent with Patient: Total time spent is greater than 50% in coordination of care (as documented) at patient's floor/unit and/or counseling patient: Coding Level of Care Code 99077 Initial Inpt Care Lvl 2 Diagnoses Gastroenteritis K52.9 Hyponatremia E87.1 Hypokalemia E87.6 Dehydration E86.0 Permanent atrial fibrillation I48.21 Generalized anxiety disorder F41.1 Hyperlipidemia E78.2 Hyperlipidemia type: mixed hyperlipidemia GERD (gastroesophageal reflux disease) K21.9 Esophagitis presence: esophagitis presence not specified Hypertension I10 Hypertension type: essential hypertension Total bilirubin, elevated R17 DVT prophylaxis Z29.9 (1) Hyperlipidemia Hyperlipidemia type: mixed hyperlipidemia Qualified Code(s): E78.2 - Mixed hyperlipidemia (2) GERD (gastroesophageal reflux disease) Esophagitis presence: esophagitis presence not specified Qualified Code(s): K21.9 - Gastro-esophageal reflux disease without esophagitis (3) Hypertension Hypertension type: essential hypertension Qualified Code(s): I10 - Essential (primary) hypertension
[2019-12-14] MEDS ORDERED: FAMOTIDINE 20 MG TAB PO PRN (14:01)
[2019-12-14] MEDS ORDERED: ONDANSETRON INJ 2 MG/ML 2 ML VIAL IV PRN (14:01)
[2019-12-14] MEDS: AZELASTINE: ORDER AWAITING ACTION SCH ×2 (14:47→21:02)
[2019-12-14] MEDS: POTASSIUM CHLORIDE 10 MEQ TABCR PO SCH ×2 (15:36→20:27)
[2019-12-14] MEDS: NSS + 20MEQ KCL 20 MEQ/1,000 ML BAG IV SCH (15:37)
[2019-12-14] MEDS ORDERED: WARFARIN SOD 6 MG TAB PO SCH (16:00)
--- NOTE | 2019-12-14 17:51 | Electrocardiogram Report ---
Test Reason : Blood Pressure : / mmHG Vent. Rate : 075 BPM Atrial Rate : 063 BPM P-R Int : 000 ms QRS Dur : 104 ms QT Int : 388 ms P-R-T Axes : 000 -40 039 degrees QTc Int : 433 ms Atrial fibrillation Left axis deviation Incomplete right bundle branch block Cannot rule out Anterior infarct , age undetermined Abnormal ECG When compared with ECG of 28-SEP-2016 06:26, No significant change was found Confirmed by Thony Tuttle ([id number]) on 12/14/2019 5:50:47 PM Referred By: REFERRED SELF Confirmed By:Bo Tuttle
[2019-12-14] MEDS: ENALAPRIL MALEATE 10 MG TAB PO SCH (20:27)
[2019-12-14] MEDS: ESCITALOPRAM OXALATE 10 MG TAB PO SCH (20:27)
[2019-12-14] MEDS: METOPROLOL SUCC 25MG EXT REL TAB PO SCH (20:27)
[2019-12-14] MEDS: ACETAMINOPHEN 325 MG TAB PO PRN (20:28)
[2019-12-15] MEDS: NSS + 20MEQ KCL 20 MEQ/1,000 ML BAG IV SCH ×3 (01:15→19:56)
[2019-12-15 08:17] LABS: INR 3.1 (0.9-1.1); Prothrombin Time 31.2 Seconds (9.0-12.0)
[2019-12-15 08:41] LABS: BUN Creatinine Ratio 19.5 (10-20); Creatinine Clr Calc Pharmacy 62.2 ml/min; Est GFR (African American) 103.9; Est GFR (Non-African American) 89.7; Potassium 4.1 mmol/L (3.5-5.1)
[2019-12-15] MEDS: AZELASTINE: ORDER AWAITING ACTION SCH ×2 (08:49→16:14)
[2019-12-15] MEDS: POTASSIUM CHLORIDE 10 MEQ TABCR PO SCH ×2 (08:54→19:57)
[2019-12-15] MEDS: PANTOprazole 40 MG TAB PO SCH (08:54)
[2019-12-15] MEDS: CALCIUM 600MG + VIT D 400 IU TAB PO SCH (08:54)
--- NOTE | 2019-12-15 15:55 | Consultation Report ---
DATE OF CONSULTATION: 12/15/2019 REASON FOR EVALUATION: Diarrhea and vomiting. HISTORY OF PRESENT ILLNESS: The patient is a 74-year-old who a week ago began experiencing crampy abdominal pain, a lot of gas and flatus followed by loose stools. This lasted a couple days and then seemed to nik for a couple days, but then came back this week and it was associated with vomiting as well. She started to get dehydrated and ended up in the hospital where she was admitted. At the time of hospitalization her sodium and potassium were both low. She received some IV fluids. Stool for C. diff was tested and negative. Stool for bacterial pathogens is pending; Covid is negative. The patient has underlying irritable bowel. She did not have a fever or any blood in her stools. PAST MEDICAL HISTORY: Remarkable for AFib, on Coumadin. She has diverticulosis, acid reflux, history of colon polyps, hyperlipidemia, hypertension, lumbar stenosis, PVCs, scleroderma with Sicca syndrome. She has had Mohs surgery, carpal tunnel surgery, hysterectomy, tubal ligation and a spinal disc removed. MEDICATIONS: Per list. ALLERGIES: Per list. FAMILY HISTORY: Son at age 48 from influenza and alcohol. Mother had bypass surgery. Father had coronary disease. Brother with coronary disease. SOCIAL HISTORY: The patient is . Her is disabled. She is a retired teacher of [employer]. Drinks wine. No smoking. REVIEW OF SYSTEMS: Some anxiety and some fatigue. Remainder is negative. PHYSICAL EXAMINATION: GENERAL: The patient appears in no acute distress. VITAL SIGNS: Normal. She is afebrile. ABDOMEN: Soft. There are no masses. There is slight tenderness in the lower abdomen bilaterally. IMPRESSION: The patient has abdominal pain, diarrhea, and vomiting. This most likely represents a viral gastroenteritis. Stool for C. diff is negative. Stool for bacterial pathogens are pending. Plan on getting a stool for fecal leukocytes. If this is negative, that would point more towards a viral gastroenteritis. In the meantime, I would continue to give her supportive measures with antiemetics, IV fluids, clear liquids. Dr. Finch will be covering over the weekend.
[2019-12-15] MEDS: WARFARIN SOD 4 MG TAB PO SCH (16:13)
[2019-12-15] MEDS: ACETAMINOPHEN 325 MG TAB PO PRN ×2 (16:13→20:01)
[2019-12-15] MEDS: ENALAPRIL MALEATE 10 MG TAB PO SCH (19:56)
[2019-12-15] MEDS: ESCITALOPRAM OXALATE 10 MG TAB PO SCH (19:56)
[2019-12-15] MEDS: METOPROLOL SUCC 25MG EXT REL TAB PO SCH (19:57)
--- NOTE | 2019-12-15 23:36 | Hospitalist Progress Note ---
Date of Service December 15, 2019 Assessment & Plan (1) Gastroenteritis: unlikely to be COVID-19 but possible; small percentage (about 10%) of COVID patients present with GI symptoms alone. await COVID-19 testing. Clinically improving: less frequent, will discuss with GI as patien tis having s ubacute diarrhea, unsure if she may need colonoscopy. will monitor (2) Hyponatremia: 2nd to volume depletion. isotonic fluids. sodium improving. (3) Hypokalemia: 2nd diarrhea. improved. (4) Dehydration: 2nd to severe gastroenteritis. IV fluids. supportive care. clear liquid diet. (5) Permanent atrial fibrillation: rates controlled. cont metoprolol. cont coumadin. INR am. (6) Generalized anxiety disorder: cont SSRI (7) Hyperlipidemia: noted not on meds at home (8) GERD (gastroesophageal reflux disease): cont PPI daily H2 kade prn (9) Hypertension: continue home meds controlled (10) Total bilirubin, elevated: Gilbert's? no evidence of biliary tract disease. follow. (11) DVT prophylaxis: coumadin daily INR negative for COVID Admission and Anticipated Discharge Date Admission Date: December 14, 2019 Subjective Patient reports feeling mildly better, she has been having less frequent diarrhea, instead of every hour, it is now 2-4 hours apart. It continues to be loose. Review of Systems Review of Systems: All systems reviewed & are unremarkable except as noted in HPI & below Physical Exam Physical Exam: Constitutional: no acute distress and no altered mental status Eyes: PERRL ENMT: Ears: no TM abnormality Mouth: + dry oral mucous membranes; no oropharynx abnormality (no erythema ) Neck: trachea midline, no thyromegaly Respiratory: no respiratory distress Auscultation: + crackles (few, dry- sounding, bases only); no wheezes Cardiovascular: Rate/Rhythm: regular rate and + irregularly irregular Heart Sounds: normal S1 and normal S2; no murmur Vessels: posterior tibial pulses present and dorsalis pedis pulses present; no JVD Extremities: no edema Gastrointestinal (Abdomen): normal bowel sounds, soft, nontender, no hepatosplenomegaly Inspection/Auscultation: + abnormal bowel sounds (hyperactive ) Musculoskeletal: no cyanosis or clubbing, extremities motor strength 5/5 Skin: no rashes, warm and dry Neurologic: deep tendon reflexes 2+ bilaterally and moves all extremities Psychiatric: Orientation: alert and oriented x 3 Lymphatic: no cervical lymphadenopathy Results & Data Results & Data ([facility]) Vital Signs (Past 12 Hours) Vital Signs Temp Pulse Pulse Resp BP BP Pulse Ox 12/15/19 20:25 37.2 C 71 18 135/81 97 12/15/19 18:39 80 12/15/19 15:00 37.1 C 79 16 160/97 H 95 12/15/19 12:51 36.8 C 83 18 145/78 H 95 PG Care Time/CCT Total # of Minutes Spent Total Time Spent with Patient: Total time spent is greater than 50% in coordination of care (as documented) at patient's floor/unit and/or counseling patient: Coding Level of Care Code 42147 Subseq Hosp Care Lvl 3 Diagnoses Gastroenteritis K52.9 Hyponatremia E87.1 Hypokalemia E87.6 Dehydration E86.0 Permanent atrial fibrillation I48.21 Generalized anxiety disorder F41.1 Hyperlipidemia E78.2 Hyperlipidemia type: mixed hyperlipidemia GERD (gastroesophageal reflux disease) K21.9 Esophagitis presence: esophagitis presence not specified Hypertension I10 Hypertension type: essential hypertension Total bilirubin, elevated R17 DVT prophylaxis Z29.9 Time Spent (min) 35 (1) Hyperlipidemia Hyperlipidemia type: mixed hyperlipidemia Qualified Code(s): E78.2 - Mixed hyperlipidemia (2) GERD (gastroesophageal reflux disease) Esophagitis presence: esophagitis presence not specified Qualified Code(s): K21.9 - Gastro-esophageal reflux disease without esophagitis (3) Hypertension Hypertension type: essential hypertension Qualified Code(s): I10 - Essential (primary) hypertension
[2019-12-16] MEDS: AZELASTINE: ORDER AWAITING ACTION SCH ×3 (00:16→15:08)
[2019-12-16] MEDS: NSS + 20MEQ KCL 20 MEQ/1,000 ML BAG IV SCH ×2 (05:52→16:34)
[2019-12-16] MEDS: PANTOprazole 40 MG TAB PO SCH (08:14)
[2019-12-16] MEDS: CALCIUM 600MG + VIT D 400 IU TAB PO SCH (08:14)
[2019-12-16] MEDS: ACETAMINOPHEN 325 MG TAB PO PRN (08:16)
[2019-12-16] MEDS: POTASSIUM CHLORIDE 10 MEQ TABCR PO SCH (11:09)
[2019-12-16] MEDS: WARFARIN SOD 4 MG TAB PO SCH (16:34)
--- NOTE | 2019-12-16 17:32 | Gastroenterology Progress Note ---
Date of Service December 16, 2019 Assessment & Plan (1) Gastroenteritis: Possible viral etiology. Resolved. Pt may be going home today. Told her to advance diet slowly and if has ongoing GI issues to make an appointment with DR Duarte. Admission and Anticipated Discharge Date Admission Date: December 14, 2019 Subjective CC f/u diarrhea HPI Diarrhea essentially resolved. Cdiff neg, stool cx neg so far. Tolerating clear liqud diet. No abd pain. Physical Exam Gastrointestinal (Abdomen): normal bowel sounds, soft, nontender, no hepatosplenomegaly Results & Data ([facility]) Vital Signs (Past 12 Hours) Vital Signs Temp Pulse Pulse Pulse Resp BP BP 12/16/19 17:16 36.7 C 96 H 77 20 165/81 H 168/81 H 12/16/19 15:14 36.7 C 77 20 165/81 H 12/16/19 11:49 36.5 C 60 20 175/78 H 12/16/19 07:43 36.6 C 73 20 180/92 H 12/16/19 07:37 84 Pulse Ox 12/16/19 17:16 98 12/16/19 15:14 98 12/16/19 11:49 98 12/16/19 07:43 97 12/16/19 07:37
[2019-12-18] MEDS ORDERED: INFLUENZA ADMINISTRATION CHARGE ONE (14:22)
[2019-12-18] MEDS ORDERED: INFLUENZA VACCINE HIGH DOSE 65+ 0.5 ML SYR IM ONE (14:22)
--- NOTE | 2019-12-24 21:03 | Discharge Summary ---
Date of Service December 16, 2019 Admission HPI Per Admitting Provider 74yo female with h/o permanent a.fib on coumadin, HTN, and scleroderma years ago who presents with 7-8 days of GI symptoms. Patient reports eating at [employer] restaurant with her and a friend that visited them from out of town on Wednesday, Dec 03. The following day on Wednesday she noticed increased flatus but overall felt ok. On of last week she developed low-grade fever into the 99's, chills, abdominal cramps, and severe diarrhea. The diarrhea is liquid and nonbloody. No mucous. She has had the diarrhea since last . On some days she can have diarrhea every 15-20 minutes. She has nocturnal symptoms as well. Early this am she had severe nausea and proceeded to have dry heaves. She has felt very tired over the past week with occasional lightheadedness. Some headache. No loss of taste or smell. has had low-grade fever to 100 degrees and diarrhea as well. No obvious sick contacts. Their friend with whom they ate on Dec 03 has stayed well. No travel. Denies dyspnea, cough, chest tightness. Some myalgias. No arthralgias. Did have COVID-19 testing on Wednesday of this week. Results still pending. Flu test was negative. Principal Diagnosis viral gastroenteritis Discharge Exam Constitutional: no acute distress and no altered mental status Eyes: PERRL ENMT: Ears: no TM abnormality Mouth: + no oropharynx abnormality (no erythema ) Neck: trachea midline, no thyromegaly Respiratory: no respiratory distress Auscultation: CTA BL; no wheezes Cardiovascular: Rate/Rhythm: regular rate and + irregularly irregular Heart Sounds: normal S1 and normal S2; no murmur Vessels: posterior tibial pulses present and dorsalis pedis pulses present; no JVD Extremities: no edema Gastrointestinal (Abdomen): normal bowel sounds, soft, nontender, no hepatosplenomegaly Inspection/Auscultation: + abnormal bowel sounds (hyperactive ) Musculoskeletal: no cyanosis or clubbing, extremities motor strength 5/5 Skin: no rashes, warm and dry Neurologic: deep tendon reflexes 2+ bilaterally and moves all extremities Psychiatric: Orientation: alert and oriented x 3 Lymphatic: no cervical lymphadenopathy Discharge Data Allergies Allergy/AdvReac Type Severity Reaction Status Date / Time Iodinated Contrast Media Allergy Mild . Unverified 12/14/19 11:43 Sulfa (Sulfonamide Allergy Mild Verified 12/14/19 11:43 Antibiotics) adhesive tape Allergy Verified 12/14/19 11:43 cyclosporine [From Restasis] Allergy Verified 12/14/19 11:43 doxycycline Allergy Verified 12/14/19 11:43 metaxalone [From Skelaxin] Allergy Verified 12/14/19 11:43 Consultations 12/14/19 11:21 ED Decision to Admit Stat 12/15/19 15:29 Consult Gastroenterology Routine Ordered Studies 12/14/19 08:27 CT abd pelvis wo con Stat Hospital Course (1) Gastroenteritis: unlikely to be COVID-19 but possible; small percentage (about 10%) of COVID patients present with GI symptoms alone. negative Clinically improving: less frequent. On day of discharge, patient 's symptoms had improved and patient asked to be discharge. D/W GI who agreed with plan. (2) Hyponatremia: 2nd to volume depletion. isotonic fluids. sodium improving. will recommend to recheck lab work in about 1 week. (3) Hypokalemia: 2nd diarrhea. improved. (4) Dehydration: 2nd to severe gastroenteritis. IV fluids. supportive care. slowly advance diet at discharge. (5) Permanent atrial fibrillation: rates controlled. cont metoprolol. cont coumadin. INR am. (6) Generalized anxiety disorder: cont SSRI (7) Hyperlipidemia: noted not on meds at home (8) GERD (gastroesophageal reflux disease): cont PPI daily H2 kade prn (9) Hypertension: continue home meds controlled (10) Total bilirubin, elevated: Gilbert's? no evidence of biliary tract disease. follow. (11) DVT prophylaxis: coumadin daily INR negative for COVID Total Time Total Time Spent Total Time Spent (In Minutes): 32 Total Time Includes: Examination of the Patient, Discharge Planning and Medication Reconciliation Discharge Plan Discharge Items Patient Disposition: Home - Self-Care Reason For Visit: GASTROENTERITIS,HYPONATREMIA,COVID-19 R/O Discharge Diagnosis: gastroenteritis Condition on Discharge: Good Activity: Resume your previous activity Non-emergency contact: Primary Care Provider Call non-emergency contact if: you have any medication questions Follow-up/Referrals: Nael Don MD [Primary Care Provider] - Diet: Clear liquid Addtl Attending Provider Instructions: Slowly advance diet as tolerated. recommend checking BMP in 5 days. Pending Studies at Discharge: No Stand-Alone Forms: [facility] [facility]), Smoking Cessation Medications and DC Order Prescriptions: Continued acetaminophen 650 mg Tablet Extended Release 650 mg PO TID PRN (Reason: Pain and Fever) Qty: 0 RF: 0 escitalopram oxalate [Lexapro] 10 mg Tablet 10 mg PO HS Qty: 0 RF: 0 calcium carbonate-vitamin D3 [Calcium 500 + D] 500 mg(1,250mg) -200 unit tablet 1 tab PO DAILY Qty: 0 RF: 0 metoprolol succinate [Toprol XL] 25 mg tablet extended release 24 hr 12.5 mg PO HS Qty: 0 RF: 0 quinapril 40 mg tablet 40 mg PO HS Qty: 90 RF: 3 Prilosec OTC 20 mg tablet,delayed release (DR/EC) 20 mg PO DAILY Qty: 90 RF: 1 warfarin 4 mg tablet See Rx Instructions PO DAILY Qty: 90 RF: 3 azelastine 137 mcg (0.1 %) aerosol,spray 1 sprays intranasal DAILY PRN (Reason: Allergy Symptoms) RF: 0 Discharge Orders: Discharge Order (Routine); Ordered 12/16/19 Ordered By: Wan Rodgers Admission Data Admit Date/Time: 12/14/19 12:25 Attending Provider: Wan Rodgers Admit Provider: Jose Montiel Primary Care Provider: Nael Don Other Providers: Jose Montiel ; Aren Duarte Other Interventions: Discharge Summary Assessment (RN) Last Done: 12/16/19 17:16 Coding Level of Care Code D/C Day Management >30 mins Diagnoses Gastroenteritis K52.9 Hyponatremia E87.1 Hypokalemia E87.6 Dehydration E86.0 Permanent atrial fibrillation I48.21 Generalized anxiety disorder F41.1 Hyperlipidemia E78.2 Hyperlipidemia type: mixed hyperlipidemia GERD (gastroesophageal reflux disease) K21.9 Esophagitis presence: esophagitis presence not specified Hypertension I10 Hypertension type: essential hypertension Total bilirubin, elevated R17 DVT prophylaxis Z29.9
== END 2019-12-16 18:29 | disposition home or self-care (01) | DRG 392 ==
LOC: ED 08:15 → SUATTDRO 12:25 → 2N 12:25 → 2W 22:21

== ENCOUNTER 2020-04-08 08:19 | Observation (INO) ==
[2020-04-08] MEDS ORDERED: MoRPHine SULFATE 2 MG/ML CARP IV STA ×2 (08:35→08:51)
[2020-04-08] MEDS ORDERED: MoRPHine SULFATE 2 MG/ML CARP ONE ×2 (08:41→08:54)
[2020-04-08] MEDS ORDERED: ONDANSETRON INJ 2 MG/ML 2 ML VIAL IV STA (08:43)
[2020-04-08 08:53] LABS: Basophils # (auto) 0.02 K/uL (0-0.2); Basophils % (auto) 0.3 %; Eosinophils % (auto) 1.4 %; Hematocrit (blood only) 44.6 % (37-47); Hemoglobin 15.1 g/dL (12.0-16.0); Immature Granulocytes # (auto) 0.01 K/uL (0.00-0.02); Immature Granulocytes % (auto) 0.1 %; Lymphocytes # (auto) 2.64 K/uL (1.2-3.4); Lymphocytes % (auto) 38.3 %; Mean Corpuscular Hemoglobin 32.5 pg (25-34); Mean Corpuscular Hgb Conc 33.9 g/dL (32-36); Mean Corpuscular Volume 96.1 fL (80-100); Mean Platelet Volume 11.2 fL (7.4-10.4); Monocytes # (auto) 0.55 K/uL (0.11-0.59); Neutrophils # (auto) 3.58 K/uL (1.4-6.5); Neutrophils % (auto) 51.9 %; Platelet Count 201 K/uL (130-400); RDW Coefficient of Variation 12.9 % (11.5-14.5); RDW Standard Deviation 45.1 fL (36.4-46.3); Red Blood Count 4.64 M/uL (4.2-5.4)
[2020-04-08] MEDS ORDERED: LORazepam 0.5 MG/1 ML VIAL IV STA ×2 (08:57→11:22)
[2020-04-08 09:10] LABS: Creatinine Clr Calc Pharmacy 55.2 ml/min; Est GFR (African American) 88.9; Est GFR (Non-African American) 76.7; Potassium 3.4 mmol/L (3.5-5.1)
[2020-04-08 09:15] LABS: Albumin Globulin Ratio 1.1 (0.9-2); Bilirubin,Total 0.9 mg/dl (0.2-1); Globulin 3.6 gm/dl (2.5-4.0); Total Protein 7.6 gm/dl (6.4-8.2); Troponin I 0.036 ng/ml (0-0.045)
--- NOTE | 2020-04-08 09:41 | XRay Report ---
XR chest 1V not portable HISTORY: Right shoulder pain. fall COMPARISON: Chest 12/14/2019. FINDINGS: No pneumothorax. No pleural effusions. Slightly rotated study. The heart remains mildly enl arged. No new focal lung consolidations to suggest pneumonia. No evidence for pulmonary edema. Cervic al spinal fusion hardware is noted. There is a right anterior shoulder dislocation which is partially visualized. IMPRESSION: 1. Partially visualized right anterior shoulder dislocation. 2. Otherwise, no acute process within the chest. ACT 112: Negative or not required by law. Electronically signed by: Wesley Foote M.D. 04/08/2020 9:40 AM
--- NOTE | 2020-04-08 09:41 | XRay Report ---
RIGHT SHOULDER 3 VIEWS CLINICAL HISTORY: Fall with right shoulder injury. FINDINGS: 3 views of the right shoulder are obtained. No prior studies are available for comparison a t the time of dictation. The skeletal structures are osteopenic. There is anterior dislocation of the right shoulder. There is a comminuted fracture of the right humeral head with displaced fragments of the greater tuberosity. No additional fracture is clearly identified. Productive degenerative change is seen at the acromioclavicular joint. Overlying soft tissue edema is noted. The right lung parench yma is clear as imaged. Fusion hardware is seen in the lower cervical spine. IMPRESSION: Fracture/dislocation of the right humeral head as above. Electronically signed by: Marvin Hirsch M.D. 04/08/2020 9:39 AM
[2020-04-08] MEDS ORDERED: HYDROmorphone INJ 0.5 MG/0.5 ML SYR IV STA (09:53)
--- NOTE | 2020-04-08 10:01 | CT Scan Report ---
HEAD CT NONCONTRAST CT DOSE: 687.98 mGy.cm HISTORY: fall, coumadin TECHNIQUE: Multiaxial CT images of the head were performed without the use of intravenous contrast. A utomated exposure control was utilized for this study. A dose lowering technique was utilized adheri ng to the principles of ALARA. Comparison: None. Findings: The paranasal sinuses and mastoid air cells are clear. The calvarium and skull base are int act. There is no mass, hematoma, midline shift, acute infarct. White matter hypodensity is nonspecifi c but suggestive of microvascular ischemic change. The ventricles and sulci demonstrate mild age-rela mayra involutional changes. Impression: No acute intracranial abnormality. ACT 112: Negative or not required by law. Electronically signed by: Wesley Foote M.D. 04/08/2020 10:00 AM
[2020-04-08] MEDS ORDERED: PROPOFOL IV EMULSION 10 MG/ML 20 ML VIAL IV STA (10:21)
--- NOTE | 2020-04-08 10:43 | XRay Report ---
RIGHT WRIST 2 VIEWS CLINICAL HISTORY: Fall with right arm pain. FINDINGS: AP and lateral views of the right wrist are obtained. No prior studies are available for co mparison at the time of dictation. The skeletal structures are osteopenic. No fracture is identified. Degenerative narrowing is seen at the radiocarpal articulation and at the distal radioulnar joint. A dvanced osteoarthritic change is seen at the first and second carpometacarpal joints where there is o vergrowth, sclerosis, and subluxation. Milder degenerative change is seen throughout the remainder of the wrist. There is dorsal tilt of the lunate suggesting DISI. There is chondrocalcinosis of the tri angular fibrocartilage. Mild soft tissue swelling overlies the wrist. IMPRESSION: 1. No acute fracture is identified. 2. Osteopenia and degenerative change as above. 3. There is dorsal tilt of the lunate suggesting dorsal intercalated segmental instability (DISI). Electronically signed by: Marvin Hirsch M.D. 04/08/2020 10:42 AM
--- NOTE | 2020-04-08 10:43 | XRay Report ---
XR hip FRANCK 2v w pelvis CLINICAL HISTORY: fall. Bilateral hip pain. COMPARISON STUDY: None. FINDINGS: No fracture or dislocation within the pelvis or hips. The sacrum is intact. There is mild c artilage space narrowing and small marginal osteophytes within the bilateral hips consistent with deg enerative change. Soft tissue swelling within the left lateral hip. IMPRESSION: Mild osteoarthritis within the bilateral hips. No fracture or dislocation. ACT 112: Negative or not required by law. Electronically signed by: Wesley Foote M.D. 04/08/2020 10:42 AM
[2020-04-08] MEDS ORDERED: ONDANSETRON INJ 2 MG/ML 2 ML VIAL ONE (10:46)
--- NOTE | 2020-04-08 11:12 | XRay Report ---
XR shoulder RT min 2V routine CLINICAL HISTORY: Right shoulder dislocation. Postreduction. COMPARISON STUDY: Right shoulder 04/08/2020. FINDINGS: No change in the right anterior shoulder dislocation with a comminuted and displaced Hill-S achs fracture of the humeral head. Right clavicle remains intact. IMPRESSION: No change in the right anterior shoulder dislocation with a comminuted and displaced Hil l-Sachs fracture of the humeral head. ACT 112: Negative or not required by law. Electronically signed by: Wesley Foote M.D. 04/08/2020 11:11 AM
[2020-04-08] MEDS ORDERED: KETOROLAC TROMETHAMINE 15 MG/ML VIAL IV STA (11:22)
[2020-04-08] MEDS ORDERED: PROPOFOL IV EMULSION 10 MG/ML 20 ML VIAL IV ONE ×3 (12:12→12:15)
--- NOTE | 2020-04-08 12:40 | XRay Report ---
XR shoulder RT min 2V routine CLINICAL HISTORY: post reduction. Right shoulder dislocation. COMPARISON STUDY: Right shoulder 04/08/2020. FINDINGS: Improved anatomic alignment status post reduction of the right shoulder dislocation. There is mild inferior subluxation without dislocation at this time. Comminuted and mildly displaced fractu re at the lateral humeral head has also improved. The right clavicle is intact. IMPRESSION: 1. Improved anatomic alignment status post reduction of the right shoulder dislocation. There is mil d inferior subluxation without dislocation at this time. 2. Comminuted and mildly displaced fracture at the lateral humeral head has improved. ACT 112: Negative or not required by law. Electronically signed by: Wesley Foote M.D. 04/08/2020 12:38 PM
--- NOTE | 2020-04-08 12:44 | Emergency Department Note ---
ED Visit Note Anterior Shoulder Dislocation Reduction Indication: Right anterior shoulder dislocation with fracture Verbal consent obtained. Risks and benefits were explained with the usual customary discussion. A time out was taken. Neurovascular examination before the procedure revealed neurovascular intact with good movement in the right hand in the median ulnar and radial nerve distributions.. The right shoulder glenohumeral dislocation was reduced by placing the patient in the supine position. Countertraction was done with a sheet under the body and through the right axilla. The nurse kept countertraction in place. Using a straight sheet the right upper extremity was flexed at the elbow with traction down and away from the patient. Mild internal and external rotation was done. This resulted in clinical reduction of the right anterior shoulder dislocation. This resulted in an easy reduction without complication. Neurovascular examination after the procedure revealed no change. The patient had significant pain relief and tolerated the procedure well. Sedation was done by Dr. Hooks. Please see her note for details of the sedation. Postreduction x-ray showed significant improvement. . : Dislocation of shoulder region Qualifiers: Encounter type: initial encounter Laterality: left Qualified Code(s): S43.005A - Unspecified dislocation of left shoulder joint, initial encounter Fracture closed, humerus Qualifiers: Encounter type: initial encounter Humerus Location: greater tuberosity Fracture alignment: displaced Laterality: left Qualified Code(s): S42.252A - Displaced fracture of greater tuberosity of left humerus, initial encounter for closed fracture
--- NOTE | 2020-04-08 13:36 | CT Scan Report ---
CT shoulder RT wo con HISTORY: 74 years-old Female dislocation-post reduction, acute right shoulder pain with fracture COMPARISON: Right shoulder radiographs 04/08/2020 TECHNIQUE: Multiple axial CT images of the right shoulder were obtained without the use of IV contras t. A dose lowering technique was used consistent with the principals of FEDE. . Additional 3-D rende ring images were generated from a separate workstation. FINDINGS: Demineralized appearance of the bones. Mild to moderate glenohumeral with moderate AC joint osteoarth ritis. Chondrocalcinosis is noted in addition to synovial calcifications. Small joint effusion. Mild supraspinatus atrophy. Tendons and ligaments are not well evaluated by CT technique. There is acute comminuted fracture involving the humeral head greater tuberosity anterior and posteri or facets with fragments displaced laterally up to 8 mm and posteriorly uptake millimeters. Acute Hil l-Sachs deformity of the humeral head. 4 mm fracture fragment is noted along the anterolateral aspect of the surgical neck. The lesser tuberosity and articular humeral head appear intact. No dislocation . No acute fracture of the glenoid identified. IMPRESSION: 1. Acute, comminuted and mildly displaced fracture involves the greater tuberosity of the humeral hea d as detailed above. 2. No dislocation or acute fracture of the glenoid identified. 3. Mild to moderate glenohumeral with moderate AC joint osteoarthritis. Chondrocalcinosis with synovi al calcifications. ACT 112: Negative or not required by law. The above report was generated using voice recognition software. It may contain grammatical, syntax o r spelling errors. Electronically signed by: Atif Villareal M.D. 04/08/2020 1:35 PM
--- NOTE | 2020-04-08 13:36 | Electrocardiogram Report ---
Test Reason : Blood Pressure : / mmHG Vent. Rate : 085 BPM Atrial Rate : 086 BPM P-R Int : 000 ms QRS Dur : 094 ms QT Int : 400 ms P-R-T Axes : 000 -28 083 degrees QTc Int : 476 ms Poor data quality, interpretation may be adversely affected Atrial fibrillation Incomplete right bundle branch block Cannot rule out Anteroseptal infarct (cited on or before 14-DEC-2019) Nonspecific ST abnormality Abnormal ECG When compared with ECG of 14-DEC-2019 08:27, Nonspecific T wave abnormality now evident in Inferior leads Confirmed by Juventino Gallardo ([id number]) on 04/08/2020 1:36:06 PM Referred By: Confirmed By:Juventino Gallardo
--- NOTE | 2020-04-08 15:15 | Emergency Department Note ---
Impression & Plan Anticoagulated on Coumadin, Dislocation of shoulder region, Fracture closed, humerus ED Provider Note NAME: DEBBIE ANTHONY AGE: 74 SEX: F ARRIVES VIA: Ambulance INFORMANT: Patient ED PROVIDER(S): Ira Hooks MD CHIEF COMPLAINT: Right shoulder pain PLAN: Disposition: Admission Condition: Fair Outpatient prescription management: [place] Referral: Orthopedics, hospitalist MEDICAL DECISION MAKING: This patient was evaluated and appeared to be in significant discomfort. IV access was obtained and laboratory work was drawn. The patient was placed on the director supply chain noted to be in a normal sinus rhythm at 78 bpm. Patient was noted to be hypertensive. She was given IV fentanyl prior to arrival but given IV morphine 2 mg x 2 for pain relief with IV Zofran upon arrival. She was given 0.5 mg of Ativan for spasm. X-ray of the right shoulder reveals evidence of dislocation. CT imaging of the head reveals no evidence of intracranial hemorrhage. An attempt was made to reduce the patient's shoulder without sedation using scapular manipulation with her lying on her abdomen however she was not able to tolerate this. Patient had not eaten since last evening. A procedural sedation was performed. Dr. Hennessy was able to reduce the shoulder, please see his notes for further details. Please see my notes for the sedation below. Patient was unable to tolerate p.o. fluids and walking to the bathroom. She became near syncopal and vomited. This was attempted several times. Hospitalist was consulted for further management. Patient does have a a t home who is total care. The office of aging has gotten involved through case management. There is currently a neighbor at home with the . Dr. Madera did evaluate the patient in the emergency department and agrees she can be managed as an outpatient. Patient is aware of the plan and agrees. Triage Nursing notes reviewed. Prior medical records reviewed Vital Signs: reviewed and remarkable for no significant abnormalities Differential diagnosis: Fracture, subluxation, dislocation, contusion, ligamentous injury, neurovascular, compartment syndrome, rhabdomyolysis, as well as other pathologies. ER treatment provided: IV morphine IV Zofran IV Ativan IV hydration Procedural sedation Shoulder reduction Orthopedics consult Diagnostics interpreted by me: ECG: Atrial fibrillation 85 bpm with incomplete right bundle branch block. No PVC no PAC. Nonspecific ST abnormality. Possible previous anterior septal infarct. QTc 476. Cardiac Monitoring: An order for cardiac monitoring was placed and the patient is noted to be in a normal sinus rhythm at 78 bpm. Laboratory studies: See below Imaging studies: XR chest 1V not portable HISTORY: Right shoulder pain. fall COMPARISON: Chest 12/14/2019. FINDINGS: No pneumothorax. No pleural effusions. Slightly rotated study. The heart remains mildly enlarged. No new focal lung consolidations to suggest pneumonia. No evidence for pulmonary edema. Cervical spinal fusion hardware is noted. There is a right anterior shoulder dislocation which is partially visualized. IMPRESSION: 1. Partially visualized right anterior shoulder dislocation. 2. Otherwise, no acute process within the chest. ACT 112: Negative or not required by law. Electronically signed by: Wesley Foote M.D. 04/08/2020 9:40 AM Dictated: 04/08/20938Transcribed: 04/08/20938 RIGHT SHOULDER 3 VIEWS CLINICAL HISTORY: Fall with right shoulder injury. FINDINGS: 3 views of the right shoulder are obtained. No prior studies are available for comparison at the time of dictation. The skeletal structures are osteopenic. There is anterior dislocation of the right shoulder. There is a comminuted fracture of the right humeral head with displaced fragments of the greater tuberosity. No additional fracture is clearly identified. Productive degenerative change is seen at the acromioclavicular joint. Overlying soft tissue edema is noted. The right lung parenchyma is clear as imaged. Fusion hardware is seen in the lower cervical spine. IMPRESSION: Fracture/dislocation of the right humeral head as above. Electronically signed by: Marvin Hirsch M.D. 04/08/2020 9:39 AM Dictated: 04/08/2037Transcribed: 04/08/[address] CT DOSE: 687.98 mGy.cm HISTORY: fall, coumadin TECHNIQUE: Multiaxial CT images of the head were performed without the use of intravenous contrast. Automated exposure control was utilized for this study. A dose lowering technique was utilized adhering to the principles of ALARA. Comparison: None. Findings: The paranasal sinuses and mastoid air cells are clear. The calvarium and skull base are intact. There is no mass, hematoma, midline shift, acute infarct. White matter hypodensity is nonspecific but suggestive of microvascular ischemic change. The ventricles and sulci demonstrate mild age-related involutional changes. Impression: No acute intracranial abnormality. ACT 112: Negative or not required by law. Electronically signed by: Wesley Foote M.D. 04/08/2020 10:00 AM Dictated: 04/08/20 0947Transcribed: 04/08/20 0947 XR hip FRANCK 2v w pelvis CLINICAL HISTORY: fall. Bilateral hip pain. COMPARISON STUDY: None. FINDINGS: No fracture or dislocation within the pelvis or hips. The sacrum is intact. There is mild cartilage space narrowing and small marginal osteophytes within the bilateral hips consistent with degenerative change. Soft tissue swelling within the left lateral hip. IMPRESSION: Mild osteoarthritis within the bilateral hips. No fracture or dislocation. ACT 112: Negative or not required by law. Electronically signed by: Wesley Foote M.D. 04/08/2020 10:42 AM Dictated: 04/08/20 1039Transcribed: 04/08/20 1039 RIGHT WRIST 2 VIEWS CLINICAL HISTORY: Fall with right arm pain. FINDINGS: AP and lateral views of the right wrist are obtained. No prior studies are available for comparison at the time of dictation. The skeletal structures are osteopenic. No fracture is identified. Degenerative narrowing is seen at the radiocarpal articulation and at the distal radioulnar joint. Advanced osteoarthritic change is seen at the first and second carpometacarpal joints where there is overgrowth, sclerosis, and subluxation. Milder degenerative change is seen throughout the remainder of the wrist. There is dorsal tilt of the lunate suggesting DISI. There is chondrocalcinosis of the triangular fibrocartilage. Mild soft tissue swelling overlies the wrist. IMPRESSION: 1. No acute fracture is identified. 2. Osteopenia and degenerative change as above. 3. There is dorsal tilt of the lunate suggesting dorsal intercalated segmental instability (DISI). Electronically signed by: Marvin Hirsch M.D. 04/08/2020 10:42 AM Dictated: 04/08/20 1038Transcribed: 04/08/20 1038 XR shoulder RT min 2V routine CLINICAL HISTORY: post reduction. Right shoulder dislocation. COMPARISON STUDY: Right shoulder 04/08/2020. FINDINGS: Improved anatomic alignment status post reduction of the right shoulder dislocation. There is mild inferior subluxation without dislocation at this time. Comminuted and mildly displaced fracture at the lateral humeral head has also improved. The right clavicle is intact. IMPRESSION: 1. Improved anatomic alignment status post reduction of the right shoulder dislocation. There is mild inferior subluxation without dislocation at this time. 2. Comminuted and mildly displaced fracture at the lateral humeral head has improved. ACT 112: Negative or not required by law. Electronically signed by: Wesley Foote M.D. 04/08/2020 12:38 PM Dictated: 04/08/20 1237Transcribed: 04/08/[address] shoulder RT wo con HISTORY: 74 years-old Female dislocation-post reduction, acute right shoulder pain with fracture COMPARISON: Right shoulder radiographs 04/08/2020 TECHNIQUE: Multiple axial CT images of the right shoulder were obtained without the use of IV contrast. A dose lowering technique was used consistent with the principals of ALARA. . Additional 3-D rendering images were generated from a separate workstation. FINDINGS: Demineralized appearance of the bones. Mild to moderate glenohumeral with moderate AC joint osteoarthritis. Chondrocalcinosis is noted in addition to synovial calcifications. Small joint effusion. Mild supraspinatus atrophy. Tendons and ligaments are not well evaluated by CT technique. There is acute comminuted fracture involving the humeral head greater tuberosity anterior and posterior facets with fragments displaced laterally up to 8 mm and posteriorly uptake millimeters. Acute Hill-Sachs deformity of the humeral head. 4 mm fracture fragment is noted along the anterolateral aspect of the surgical neck. The lesser tuberosity and articular humeral head appear intact. No dislocation. No acute fracture of the glenoid identified. IMPRESSION: 1. Acute, comminuted and mildly displaced fracture involves the greater tuberosity of the humeral head as detailed above. 2. No dislocation or acute fracture of the glenoid identified. 3. Mild to moderate glenohumeral with moderate AC joint osteoarthritis. Chondrocalcinosis with synovial calcifications. ACT 112: Negative or not required by law. The above report was generated using voice recognition software. It may contain grammatical, syntax or spelling errors. Electronically signed by: Atif Villareal M.D. 04/08/2020 1:35 PM Dictated: 04/08/20 1326Transcribed: 04/08/20 1326 Consultation(s): Dr. Madera, orthopedic surgery Orthopedic surgery HPI: 74/F arrives for evaluation of right shoulder pain after a fall while walking the dog. Patient slipped on the snow and ice. She complains of right shoulder pain. Patient does take Coumadin for history of atrial fibrillation, she denies any significant head injury/LOC but is uncertain of a more minor injury. She denies any chest pain, shortness of breath or abdominal pain. Patient denies any previous injuries to the shoulder. ROS: See above HPI for pertinent positives & negatives. A total of 10 systems reviewed and were otherwise negative. PAST MEDICAL HISTORY:See Below PAST SURGICAL HISTORY:See Below FAMILY HISTORY:See Below SOCIAL HISTORY:See Below HOME MEDICATIONS:See Below ALLERGIES:See Below VITALS:See Below PHYSICAL EXAMINATION: Vital signs reviewed. General: Well-appearing 74-year-old female, in significant discomfort HEENT: No scleral icterus, PERRLA, neck supple. Atraumatic. Cardiovascular: Regular rate and rhythm, no extra sounds. Pulmonary: Clear to auscultation bilaterally, normal work of breathing. Abdomen: Soft, nontender, nondistended, positive bowel sounds. Musculoskeletal: Noticeable defect at the right shoulder with proximal humeral swelling and discomfort with any range of motion. Neurovascularly intact distally at the right wrist. Moves the right elbow without significant pain. Neurologic: Patient awake alert and oriented x 3 Skin: Warm, dry, no rash ED COURSE: Procedures: Anterior Shoulder Dislocation Reduction Indication: Right shoulder dislocation Verbal consent obtained. Risks and benefits were explained with the usual customary discussion. A time out was taken. Neurovascular examination before the procedure was intact. The right shoulder glenohumeral dislocation reduction was attempted by placing the patient prone and applying gentle downward inline traction on the humerus, with the elbow flexed at 90 degrees, while scapula manipulation was applied. Patient had significant discomfort and there was difficulty reducing the joint successfully. Neurovascular examination after the procedure remained intact. Please see my notes below for procedural sedation and a second attempt at reduction. Procedural Sedation Indication right shoulder fracture dislocation Total time: 16 minutes. Written consent was obtained after the risks and benefits were explained to the patient, including, but not limited to aspiration, allergic reaction, breathing difficulties, cardiac complications, vomiting, pain, event recall, bleeding, and/or infection. Pre-sedation examination and paperwork completed. The patient was on 2 L nasal cannula oxygen prior to the procedure. Continuous end tidal CO2 monitoring, pulse oximetry, and cardiac monitoring were utilized. Suction, airway equipment, medications, respiratory equipment, and appropriate personnel were prepared prior to the initiation of the procedure. A time out was taken. Sedation was achieved utilizing a total of 80 mg of propofol. After I observed the patient had reached the appropriate level of sedation the main pr ocedure was performed without complication. Sedation was discontinued and the monitoring continued. The patient recovered quickly from the effects of the medication with some mild delay and required a jaw thrust with a nasal trumpet. She did wake up easily thereafter and responded to verbal stimuli without difficulty. Ira Hooks MD Past Med/Surg History Medical History Acute dehydration Anticoagulated on Coumadin Anxiety Arthritis, multiple joint involvement Diverticulosis Enteritis Generalized anxiety disorder GERD (gastroesophageal reflux disease) GERD (gastroesophageal reflux disease) History of colon polyps Hyperlipidemia Hyperlipidemia Hypertension Hypertension Leukopenia Lower abdominal pain Lumbar canal stenosis Lymphedema Permanent atrial fibrillation Permanent atrial fibrillation Person under investigation for COVID-19 Premature ventricular contractions (PVCs) (VPCs) Scleroderma dx years ago but currently asymptomatic Sicca syndrome Vomiting and diarrhea Surgical History History of carpal tunnel surgery History of Mohs micrographic surgery for skin cancer History of total abdominal hysterectomy History of tubal ligation Status post spinal disc removal C2-C3 Family History Son , age 48 from influenza Alcoholism Mother Family history of CABG Osteoporosis Vascular dementia Father Coronary heart disease Hypertension Peripheral vascular disease Brother Coronary heart disease Social History Smoking Status: Never smoker Hx Alcohol Use: Yes Alcohol type: wine Hx Substance Use: No Preferred Language: [place] Communication Ability: Effective Visual Impairment: Limited Hearing Ability: Normal Implementation Manager Required: No Beliefs That Will Affect Care: None marital status: Current Living Situation: Spouse Current Living Situation Comment: caregiver for current occupational status: retired current occupation: former teach How many Children do You have Comment: 1 son - he is Feels Safe at Home: Yes Dental Care, Regularly: Yes Physical Activity Frequency: 3-4 Times per Week Seatbelt Use: always Sunscreen Use: Yes Assistive Devices: None Allergies Allergies Allergy/AdvReac Type Severity Reaction Status Date / Time Iodinated Contrast Media Allergy Mild . Unverified 04/08/20 09:09 Sulfa (Sulfonamide Allergy Mild Verified 04/08/20 09:09 Antibiotics) adhesive tape Allergy Verified 04/08/20 09:09 cyclosporine [From Restasis] Allergy Verified 04/08/20 09:09 doxycycline Allergy Verified 04/08/20 09:09 metaxalone [From Skelaxin] Allergy Verified 04/08/20 09:09 Home Meds Home Medications Medication Instructions Recorded Confirmed acetaminophen 650 mg PO TID PRN #0 cap 09/27/16 04/08/20 escitalopram oxalate [Lexapro] 10 mg PO HS #0 tab 09/27/16 04/08/20 calcium carbonate 500 mg (1,250 1 tab PO DAILY #0 tab 12/20/18 04/08/20 mg)-vitamin D3 200 unit tablet metoprolol succinate 25 mg 12.5 mg PO HS #0 tab 01/24/19 04/08/20 tablet,extended release 24 hr azelastine 1 sprays INTRANASAL DAILY PRN 12/14/19 04/08/20 warfarin 4 mg tablet See Rx Instructions PO UD tab 01/18/20 04/08/20 cholecalciferol (vitamin D3) 50 50 mcg PO Q2D cap 02/07/20 04/08/20 mcg (2,000 unit) capsule Previous Rx's Medication Instructions Recorded omeprazole magnesium 20 mg 20 mg PO DAILY #90 cap 05/17/19 tablet,delayed release quinapril 40 mg tablet 40 mg PO HS #90 tab 01/08/20 hydrocodone-acetaminophen [[place]] 1 tab PO Q6H PRN #14 tab 04/08/20 Results & Data (ED) Vital Signs Vital Signs - 24 hr 04/08/20 08:36 04/08/20 08:38 04/08/20 08:40 Temperature Temperature Source Pulse Rate 78 82 85 Pulse Rate [Left] Pulse Rate from SpO2 Sensor 83 83 80 Pulse Rhythm [Left] Pulse Strength [Left] Respiratory Rate 28 H 23 27 H Respiratory Effort / Characteristics Respiratory Depth Respiratory Pattern Blood Pressure 192/117 H Blood Pressure [Left Arm] Blood Pressure Mean 142 Blood Pressure Mean [Left Arm] Blood Pressure Position Blood Pressure Position [Left Arm] Pulse Oximetry 98 98 98 Oxygen Delivery Method Oxygen Flow Rate Sepsis Recent Fever Within 48 Hours Sepsis New/Unexplained Change in Mental Status Sepsis Action Taken by Nursing End-Tidal CO2 04/08/20 08:45 04/08/20 08:50 04/08/20 09:00 Temperature Temperature Source Pulse Rate 76 74 87 Pulse Rate [Left] Pulse Rate from SpO2 Sensor 76 84 Pulse Rhythm [Left] Pulse Strength [Left] Respiratory Rate 22 24 25 H Respiratory Effort / Characteristics Respiratory Depth Respiratory Pattern Tachypnea Blood Pressure 192/117 H Blood Pressure [Left Arm] Blood Pressure Mean 142 Blood Pressure Mean [Left Arm] Blood Pressure Position Lying Blood Pressure Position [Left Arm] Pulse Oximetry 99 95 97 Oxygen Delivery Method Room Air Oxygen Flow Rate Sepsis Recent Fever Within 48 Hours No Sepsis New/Unexplained Change in Mental Status No Sepsis Action Taken by Nursing No Action Required End-Tidal CO2 04/08/20 09:10 04/08/20 09:12 04/08/20 09:13 Temperature 36.5 C Temperature Source Oral Pulse Rate 84 84 Pulse Rate [Left] 85 Pulse Rate from SpO2 Sensor 82 84 Pulse Rhythm [Left] Pulse Strength [Left] Respiratory Rate 29 H 22 26 H Respiratory Effort / Characteristics Respiratory Depth Respiratory Pattern Blood Pressure 192/112 H Blood Pressure [Left Arm] 192/112 H Blood Pressure Mean 138 Blood Pressure Mean [Left Arm] 138 Blood Pressure Position Blood Pressure Position [Left Arm] Lying Pulse Oximetry 97 97 97 Oxygen Delivery Method Room Air Oxygen Flow Rate Sepsis Recent Fever Within 48 Hours Sepsis New/Unexplained Change in Mental Status Sepsis Action Taken by Nursing End-Tidal CO2 04/08/20 09:52 04/08/20 09:54 04/08/20 09:55 Temperature Temperature Source Pulse Rate 81 81 72 Pulse Rate [Left] 72 Pulse Rate from SpO2 Sensor 72 77 Pulse Rhythm [Left] Pulse Strength [Left] Respiratory Rate 18 21 23 Respiratory Effort / Characteristics Respiratory Depth Respiratory Pattern Blood Pressure 215/130 H 198/112 H Blood Pressure [Left Arm] 198/112 H Blood Pressure Mean 158 140 Blood Pressure Mean [Left Arm] 140 Blood Pressure Position Blood Pressure Position [Left Arm] Lying Pulse Oximetry 96 87 L Oxygen Delivery Method Room Air Oxygen Flow Rate Sepsis Recent Fever Within 48 Hours Sepsis New/Unexplained Change in Mental Status Sepsis Action Taken by Nursing End-Tidal CO2 04/08/20 10:00 04/08/20 10:05 04/08/20 10:10 Temperature Temperature Source Pulse Rate 69 75 69 Pulse Rate [Left] Pulse Rate from SpO2 Sensor 73 73 72 Pulse Rhythm [Left] Pulse Strength [Left] Respiratory Rate 19 24 28 H Respiratory Effort / Characteristics Respiratory Depth Respiratory Pattern Blood Pressure 188/105 H Blood Pressure [Left Arm] Blood Pressure Mean 132 Blood Pressure Mean [Left Arm] Blood Pressure Position Blood Pressure Position [Left Arm] Pulse Oximetry 94 95 97 Oxygen Delivery Method Oxygen Flow Rate Sepsis Recent Fever Within 48 Hours Sepsis New/Unexplained Change in Mental Status Sepsis Action Taken by Nursing End-Tidal CO2 04/08/20 10:20 04/08/20 10:30 04/08/20 10:40 Temperature Temperature Source Pulse Rate 69 66 63 Pulse Rate [Left] Pulse Rate from SpO2 Sensor 65 67 70 Pulse Rhythm [Left] Pulse Strength [Left] Respiratory Rate 26 H 19 18 Respiratory Effort / Characteristics Respiratory Depth Respiratory Pattern Blood Pressure Blood Pressure [Left Arm] Blood Pressure Mean Blood Pressure Mean [Left Arm] Blood Pressure Position Blood Pressure Position [Left Arm] Pulse Oximetry 98 98 98 Oxygen Delivery Method Oxygen Flow Rate Sepsis Recent Fever Within 48 Hours Sepsis New/Unexplained Change in Mental Status Sepsis Action Taken by Nursing End-Tidal CO2 04/08/20 10:50 04/08/20 10:53 04/08/20 10:54 Temperature Temperature Source Pulse Rate 69 63 70 Pulse Rate [Left] Pulse Rate from SpO2 Sensor 70 55 L Pulse Rhythm [Left] Pulse Strength [Left] Respiratory Rate 24 26 H 26 H Respiratory Effort / Characteristics Respiratory Depth Respiratory Pattern Blood Pressure 159/89 H Blood Pressure [Left Arm] Blood Pressure Mean 112 Blood Pressure Mean [Left Arm] Blood Pressure Position Blood Pressure Position [Left Arm] Pulse Oximetry 97 96 97 Oxygen Delivery Method Nasal Cannula Oxygen Flow Rate 2 Sepsis Recent Fever Within 48 Hours Sepsis New/Unexplained Change in Mental Status Sepsis Action Taken by Nursing End-Tidal CO2 04/08/20 10:55 04/08/20 11:00 04/08/20 11:01 Temperature Temperature Source Pulse Rate 67 60 Pulse Rate [Left] 68 Pulse Rate from SpO2 Sensor 68 58 L Pulse Rhythm [Left] Pulse Strength [Left] Respiratory Rate 26 H 23 24 Respiratory Effort / Characteristics Spontaneous Respiratory Depth Respiratory Pattern Blood Pressure 164/100 H Blood Pressure [Left Arm] 159/89 H Blood Pressure Mean 121 Blood Pressure Mean [Left Arm] 112 Blood Pressure Position Blood Pressure Position [Left Arm] Lying Pulse Oximetry 97 97 98 Oxygen Delivery Method Nasal Cannula Oxygen Flow Rate 2 Sepsis Recent Fever Within 48 Hours Sepsis New/Unexplained Change in Mental Status Sepsis Action Taken by Nursing End-Tidal CO2 04/08/20 11:10 04/08/20 11:34 04/08/20 11:45 Temperature Temperature Source Pulse Rate 67 75 Pulse Rate [Left] Pulse Rate from SpO2 Sensor 64 98 H Pulse Rhythm [Left] Pulse Strength [Left] Respiratory Rate 22 20 Respiratory Effort / Characteristics Respiratory Depth Respiratory Pattern Blood Pressure 164/100 H Blood Pressure [Left Arm] Blood Pressure Mean 121 Blood Pressure Mean [Left Arm] Blood Pressure Position Blood Pressure Position [Left Arm] Pulse Oximetry 95 95 90 Oxygen Delivery Method Room Air Oxygen Flow Rate Sepsis Recent Fever Within 48 Hours Sepsis New/Unexplained Change in Mental Status Sepsis Action Taken by Nursing End-Tidal CO2 04/08/20 11:48 04/08/20 11:49 04/08/20 11:50 Temperature Temperature Source Pulse Rate 76 70 Pulse Rate [Left] 70 Pulse Rate from SpO2 Sensor 78 89 Pulse Rhythm [Left] Regular Pulse Strength [Left] Normal Respiratory Rate 20 Respiratory Effort / Characteristics Non-Labored Spontaneous Respiratory Depth Normal Respiratory Pattern Regular Blood Pressure 192/106 H Blood Pressure [Left Arm] 192/106 H Blood Pressure Mean 134 Blood Pressure Mean [Left Arm] 134 Blood Pressure Position Blood Pressure Position [Left Arm] Sitting Pulse Oximetry 95 97 96 Oxygen Delivery Method Room Air Oxygen Flow Rate Sepsis Recent Fever Within 48 Hours Sepsis New/Unexplained Change in Mental Status Sepsis Action Taken by Nursing End-Tidal CO2 29 6 04/08/20 11:51 04/08/20 12:00 04/08/20 12:01 Temperature Temperature Source Pulse Rate 81 74 Pulse Rate [Left] Pulse Rate from SpO2 Sensor 81 76 Pulse Rhythm [Left] Pulse Strength [Left] Respiratory Rate Respiratory Effort / Characteristics Respiratory Depth Respiratory Pattern Blood Pressure 187/107 H Blood Pressure [Left Arm] Blood Pressure Mean 133 Blood Pressure Mean [Left Arm] Blood Pressure Position Blood Pressure Position [Left Arm] Pulse Oximetry 97 96 98 Oxygen Delivery Method Nasal Cannula Oxygen Flow Rate 2 Sepsis Recent Fever Within 48 Hours Sepsis New/Unexplained Change in Mental Status Sepsis Action Taken by Nursing End-Tidal CO2 30 22 04/08/20 12:10 04/08/20 12:14 04/08/20 12:16 Temperature Temperature Source Pulse Rate 82 69 86 Pulse Rate [Left] Pulse Rate from SpO2 Sensor 75 75 86 Pulse Rhythm [Left] Pulse Strength [Left] Respiratory Rate Respiratory Effort / Characteristics Respiratory Depth Respiratory Pattern Blood Pressure 164/94 H 193/101 H Blood Pressure [Left Arm] Blood Pressure Mean 117 131 Blood Pressure Mean [Left Arm] Blood Pressure Position Blood Pressure Position [Left Arm] Pulse Oximetry 98 92 96 Oxygen Delivery Method Oxygen Flow Rate Sepsis Recent Fever Within 48 Hours Sepsis New/Unexplained Change in Mental Status Sepsis Action Taken by Nursing End-Tidal CO2 27 7 12 04/08/20 12:19 04/08/20 12:20 04/08/20 12:23 Temperature Temperature Source Pulse Rate 87 85 81 Pulse Rate [Left] Pulse Rate from SpO2 Sensor 87 90 85 Pulse Rhythm [Left] Pulse Strength [Left] Respiratory Rate Respiratory Effort / Characteristics Respiratory Depth Respiratory Pattern Blood Pressure 178/105 H 204/113 H 178/115 H Blood Pressure [Left Arm] Blood Pressure Mean 129 143 136 Blood Pressure Mean [Left Arm] Blood Pressure Position Blood Pressure Position [Left Arm] Pulse Oximetry 98 98 98 Oxygen Delivery Method Oxygen Flow Rate Sepsis Recent Fever Within 48 Hours Sepsis New/Unexplained Change in Mental Status Sepsis Action Taken by Nursing End-Tidal CO2 19 22 27 04/08/20 12:25 04/08/20 12:30 04/08/20 12:31 Temperature Temperature Source Pulse Rate 84 80 80 Pulse Rate [Left] Pulse Rate from SpO2 Sensor 82 73 86 Pulse Rhythm [Left] Pulse Strength [Left] Respiratory Rate Respiratory Effort / Characteristics Respiratory Depth Respiratory Pattern Blood Pressure 192/103 H 195/95 H Blood Pressure [Left Arm] Blood Pressure Mean 132 128 Blood Pressure Mean [Left Arm] Blood Pressure Position Blood Pressure Position [Left Arm] Pulse Oximetry 99 93 100 Oxygen Delivery Method Oxygen Flow Rate Sepsis Recent Fever Within 48 Hours Sepsis New/Unexplained Change in Mental Status Sepsis Action Taken by Nursing End-Tidal CO2 18 32 13 04/08/20 12:35 04/08/20 12:40 04/08/20 12:45 Temperature Temperature Source Pulse Rate 80 81 83 Pulse Rate [Left] Pulse Rate from SpO2 Sensor 81 89 78 Pulse Rhythm [Left] Pulse Strength [Left] Respiratory Rate Respiratory Effort / Characteristics Respiratory Depth Respiratory Pattern Blood Pressure 198/119 H 184/132 H 140/111 H Blood Pressure [Left Arm] Blood Pressure Mean 145 149 120 Blood Pressure Mean [Left Arm] Blood Pressure Position Blood Pressure Position [Left Arm] Pulse Oximetry 100 93 99 Oxygen Delivery Method Oxygen Flow Rate Sepsis Recent Fever Within 48 Hours Sepsis New/Unexplained Change in Mental Status Sepsis Action Taken by Nursing End-Tidal CO2 14 17 17 04/08/20 13:00 Temperature Temperature Source Pulse Rate 82 Pulse Rate [Left] Pulse Rate from SpO2 Sensor 80 Pulse Rhythm [Left] Pulse Strength [Left] Respiratory Rate 18 Respiratory Effort / Characteristics Respiratory Depth Respiratory Pattern Blood Pressure 167/90 H Blood Pressure [Left Arm] Blood Pressure Mean 115 Blood Pressure Mean [Left Arm] Blood Pressure Position Blood Pressure Position [Left Arm] Pulse Oximetry 94 Oxygen Delivery Method Room Air Oxygen Flow Rate Sepsis Recent Fever Within 48 Hours Sepsis New/Unexplained Change in Mental Status Sepsis Action Taken by Nursing End-Tidal CO2 Home Medications Current Medication List: was personally reviewed by me Laboratory Data Attestation: I reviewed the patient's lab results. Result diagrams: 04/08/20 08:39 04/08/20 08:39 Lab Results 04/08/20 04/08/20 Range/Units 08:39 08:39 WBC 6.90 (4.8-10.8) K/uL RBC 4.64 (4.2-5.4) M/uL Hgb 15.1 (12.0-16.0) g/dL Hct 44.6 (37-47) % MCV 96.1 (80-100) fL MCH 32.5 (25-34) pg MCHC 33.9 (32-36) g/dL RDW Std Deviation 45.1 (36.4-46.3) fL RDW Coeff of Lobo 12.9 (11.5-14.5) % Plt Count 201 (130-400) K/uL MPV 11.2 H (7.4-10.4) fL Immature Gran % (Auto) 0.1 % Neut % (Auto) 51.9 % Lymph % (Auto) 38.3 % [place] % (Auto) 8.0 % Eos % (Auto) 1.4 % Baso % (Auto) 0.3 % Neut # (Auto) 3.58 (1.4-6.5) K/uL Lymph # (Auto) 2.64 (1.2-3.4) K/uL [place] # (Auto) 0.55 (0.11-0.59) K/uL Eos # (Auto) 0.10 (0-0.5) K/uL Baso # (Auto) 0.02 (0-0.2) K/uL Immature Gran # (Auto) 0.01 (0.00-0.02) K/uL Sodium 138 (136-145) mmol/L Potassium 3.4 L (3.5-5.1) mmol/L Chloride 102 (98-107) mmol/L Carbon Dioxide 24 (21-32) mmol/L Anion Gap 12.0 H (3-11) BUN 17 (7-18) mg/dl Creatinine 0.76 (0.6-1.2) mg/dl Est Cr Clr Drug Dosing 55.2 ml/min Est GFR ( Amer) 88.9 Est GFR (Non-Af Amer) 76.7 BUN/Creatinine Ratio 22.0 H (10-20) Glucose 137 H (70-99) mg/dl Calcium 10.0 (8.5-10.1) mg/dl Total Bilirubin 0.9 (0.2-1) mg/dl AST 20 (15-37) U/L ALT 26 (12-78) U/L Alkaline Phosphatase 85 (45-117) U/L Troponin I 0.036 (0-0.045) ng/ml Total Protein 7.6 (6.4-8.2) gm/dl Albumin 4.0 (3.4-5.0) gm/dl Globulin 3.6 (2.5-4.0) gm/dl Albumin/Globulin Ratio 1.1 (0.9-2) Administered Medications Discontinued Medications Hydromorphone HCl (Hydromorphone Inj 0.5 Mg/0.5 Ml Syr) 0.5 mg IV NOW STA Stop: 04/08/20 09:54 Last Admin: 04/08/20 11:33 Dose: Not Given Documented by: [id number] Lorazepam (Ativan) 0.5 mg in 1 mls @ 1 mls/min IV NOW STA Stop: 04/08/20 08:58 Last Admin: 04/08/20 09:12 Dose: 1 mls/min Documented by: [id number] Lorazepam (Ativan) 0.5 mg in 1 mls @ 1 mls/min IV NOW STA Stop: 04/08/20 11:23 Last Admin: 04/08/20 11:28 Dose: 1 mls/min Documented by: [id number] Ketorolac Tromethamine (Ketorolac Tromethamine 15 Mg/Ml Vial) 15 mg IV NOW STA Stop: 04/08/20 11:23 Last Admin: 04/08/20 11:27 Dose: 15 mg Documented by: [id number] Morphine Sulfate (Morphine Sulfate 2 Mg/Ml Carp) Confirm Administered Dose 2 mg .ROUTE .STK-MED ONE Stop: 04/08/20 08:42 Last Admin: 04/08/20 08:44 Dose: 2 mg Documented by: [id number] Morphine Sulfate (Morphine Sulfate 2 Mg/Ml Carp) Confirm Administered Dose 2 mg .ROUTE .STK-MED ONE Stop: 04/08/20 08:55 Last Admin: 04/08/20 09:02 Dose: 2 mg Documented by: [id number] Ondansetron HCl (Ondansetron Inj 2 Mg/Ml 2 Ml Vial) 4 mg IV NOW STA Stop: 04/08/20 08:44 Last Admin: 04/08/20 09:13 Dose: Not Given Documented by: [id number] Ondansetron HCl (Ondansetron Inj 2 Mg/Ml 2 Ml Vial) Confirm Administered Dose 4 mg .ROUTE .STK-MED ONE Stop: 04/08/20 10:47 Last Admin: 04/08/20 10:55 Dose: 4 mg Documented by: [id number] Propofol (Propofol Iv Emulsion 10 Mg/Ml 20 Ml Vial) 200 mg IV NOW STA Stop: 04/08/20 10:22 Last Admin: 04/08/20 11:32 Dose: Not Given Documented by: [id number] Propofol (Propofol Iv Emulsion 10 Mg/Ml 20 Ml Vial) 30 mg IV ONE ONE Stop: 04/08/20 12:13 Last Admin: 04/08/20 12:32 Dose: 30 mg Documented by: [id number] Cosigned by: [id number] Propofol (Propofol Iv Emulsion 10 Mg/Ml 20 Ml Vial) 25 mg IV ONE ONE Stop: 04/08/20 12:15 Last Admin: 04/08/20 12:32 Dose: 25 mg Documented by: [id number] Cosigned by: [id number] Propofol (Propofol Iv Emulsion 10 Mg/Ml 20 Ml Vial) 25 mg IV ONE ONE Stop: 04/08/20 12:16 Last Admin: 04/08/20 12:33 Dose: 25 mg Documented by: [id number] Cosigned by: [id number] Discharge Plan Visit Data Chief Complaint: Fall ED Provider: Ira Hooks Discharge Problem: Anticoagulated on Coumadin, Dislocation of shoulder region, Fracture closed, humerus Patient Disposition: Home - Self-Care Condition: Good Discharge Instructions Krames/Other Patient Handouts: ED Dislocation: Shoulder (Reduced) Activity Restrictions/Additional Instructions: Diagnosis: Fracture dislocation of the right shoulder Tylenol 650 mg every 6 hours as needed for pain. [place] 1 tab every 6 hours as needed for severe pain. Do not drive after taking this medication. Ice intermittently for the next 24 to 48 hours. Leave the sling in place at all times until you are reevaluated by orthopedic surgery. This may be removed for showering. Contact Dr. Madera for reevaluation this week. Please see contact information below. Return to the emergency department for worsening of symptoms or any medical concerns. Forms Stand Alone Forms: Anesthesia/Sedation, Adult, Replaced By [facility], [facility] ([facility] Emergency Department, Important Visit Information Prescriptions Prescriptions: New hydrocodone-acetaminophen [Phoenix] 5-325 mg tablet 1 tab PO Q6H PRN (Reason: pain) Qty: 14 RF: 0 No Action warfarin 4 mg tablet See Rx Instructions PO UD RF: 0 cholecalciferol (vitamin D3) 50 mcg (2,000 unit) capsule 50 mcg PO Q2D RF: 0 acetaminophen 650 mg Tablet Extended Release 650 mg PO TID PRN (Reason: Pain and Fever) Qty: 0 RF: 0 escitalopram oxalate [Lexapro] 10 mg Tablet 10 mg PO HS Qty: 0 RF: 0 calcium carbonate-vitamin D3 [Calcium 500 + D] 500 mg(1,250mg) -200 unit tablet 1 tab PO DAILY Qty: 0 RF: 0 metoprolol succinate [Toprol XL] 25 mg tablet extended release 24 hr 12.5 mg PO HS Qty: 0 RF: 0 Prilosec OTC 20 mg tablet,delayed release (DR/EC) 20 mg PO DAILY Qty: 90 RF: 1 quinapril 40 mg tablet 40 mg PO HS Qty: 90 RF: 3 azelastine 137 mcg (0.1 %) aerosol,spray 1 sprays intranasal DAILY PRN (Reason: Allergy Symptoms) RF: 0 Referrals Referrals: Nael Don MD [Primary Care Provider] - Daniel Madera DO [Physician] - Discharge Problem: Dislocation of shoulder region Qualifiers: Encounter type: initial encounter Laterality: left Qualified Code(s): S43.005A - Unspecified dislocation of left shoulder joint, initial encounter Fracture closed, humerus Qualifiers: Encounter type: initial encounter Humerus Location: greater tuberosity Fracture alignment: displaced Laterality: left Qualified Code(s): S42.252A - Displaced fracture of greater tuberosity of left humerus, initial encounter for closed fracture
--- NOTE | 2020-04-08 15:29 | History & Physical Report ---
Date of Service April 08, 2020 Assessment & Plan (1) Fracture closed, humerus: Follow-up with orthopedics as previously arranged with Dr. Madera Continue with arm sling until follow-up appointment Pain control with acetaminophen 1 g p.o. 3 times daily Tramadol 50 mg as needed, Dilaudid as needed for severe pain PT/OT evals. (2) Dislocation of shoulder region: S/p reduction in emergency room (3) Permanent atrial fibrillation: Continue on usual warfarin dosing. PT/INR 2.4. History of Present Illness Chief Complaint: Shoulder dislocation fracture Primary Care Provider: Nael Don MD Yamileth Hinojosa is a 74-year-old female who presents to the ER following a fall earlier this morning on ice. She fell onto her right side but did not hit her head. She denies any chest pain, shortness of breath, dizziness prior to falling. She denies any hip pain, back pain, wrist pain after falling. Any pain from the fall appears to be her right shoulder. In the ER CT head, hip and pelvis x-rays showed no acute abnormalities. Wrist x-ray showed dorsal tilt of the lunate suggesting dorsal intercalated segmental instability - however she reports no pain in this area. Right shoulder x-ray showed fracture/dislocation of the right humeral head as above. This was reduced successfully in the emergency room but required procedural sedation. That she is not safe to go home at this time due to drowsiness she was referred to medicine for admission and ongoing management to determine safety of discharge Allergies Allergy/AdvReac Type Severity Reaction Status Date / Time Iodinated Contrast Media Allergy Mild . Unverified 04/08/20 09:09 Sulfa (Sulfonamide Allergy Mild Verified 04/08/20 09:09 Antibiotics) adhesive tape Allergy Verified 04/08/20 09:09 cyclosporine [From Restasis] Allergy Verified 04/08/20 09:09 doxycycline Allergy Verified 04/08/20 09:09 metaxalone [From Skelaxin] Allergy Verified 04/08/20 09:09 Home Medications Medication Instructions Recorded Confirmed Type acetaminophen 650 mg PO TID PRN #0 cap 09/27/16 04/08/20 History escitalopram oxalate [Lexapro] 10 mg PO HS #0 tab 09/27/16 04/08/20 History calcium carbonate 500 mg (1,250 1 tab PO DAILY #0 tab 12/20/18 04/08/20 History mg)-vitamin D3 200 unit tablet metoprolol succinate 25 mg 12.5 mg PO HS #0 tab 01/24/19 04/08/20 History tablet,extended release 24 hr omeprazole magnesium 20 mg 20 mg PO DAILY #90 cap 05/17/19 04/08/20 Rx tablet,delayed release azelastine 1 sprays INTRANASAL DAILY PRN 12/14/19 04/08/20 History quinapril 40 mg tablet 40 mg PO HS #90 tab 01/08/20 04/08/20 Rx warfarin 4 mg tablet See Rx Instructions PO UD tab 01/18/20 04/08/20 History cholecalciferol (vitamin D3) 50 50 mcg PO Q2D cap 02/07/20 04/08/20 History mcg (2,000 unit) capsule tramadol 50 mg PO Q4H PRN 7 Days #20 tab 04/09/20 Rx Past Med/Surg History Medical History Acute dehydration Anticoagulated on Coumadin Anxiety Arthritis, multiple joint involvement Diverticulosis Enteritis Generalized anxiety disorder GERD (gastroesophageal reflux disease) GERD (gastroesophageal reflux disease) History of colon polyps Hyperlipidemia Hyperlipidemia Hypertension Hypertension Leukopenia Lower abdominal pain Lumbar canal stenosis Lymphedema Permanent atrial fibrillation Permanent atrial fibrillation Person under investigation for COVID-19 Premature ventricular contractions (PVCs) (VPCs) Scleroderma dx years ago but currently asymptomatic Sicca syndrome Vomiting and diarrhea Surgical History History of carpal tunnel surgery History of Mohs micrographic surgery for skin cancer History of total abdominal hysterectomy History of tubal ligation Status post spinal disc removal C2-C3 Family History Son , age 48 from influenza Alcoholism Mother Family history of CABG Osteoporosis Vascular dementia Father Coronary heart disease Hypertension Peripheral vascular disease Brother Coronary heart disease Social History Smoking Status: Never smoker Hx Alcohol Use: Yes Alcohol type: wine Hx Substance Use: No Preferred Language: Czech Communication Ability: Effective Visual Impairment: Limited Hearing Ability: Normal 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 Beliefs That Will Affect Care: None marital status: Current Living Situation: Spouse Current Living Situation Comment: caregiver for current occupational status: retired current occupation: former teach How many Children do You have Comment: 1 son - he is Feels Safe at Home: Yes Dental Care, Regularly: Yes Physical Activity Frequency: 3-4 Times per Week Seatbelt Use: always Sunscreen Use: Yes Assistive Devices: Glasses Physical Exam Constitutional: well developed and well nourished; no acute distress Eyes: + anicteric sclerae; normal pupil size ENMT: external ear and nose normal, oropharynx normal Respiratory: normal respiratory effort, lungs clear to auscultation Cardiovascular: Rate/Rhythm: regular rate and + irregularly irregular Heart Sounds: no murmur Vessels: no JVD Extremities: normal capillary refill; no calf tenderness and no pedal edema Gastrointestinal (Abdomen): normal bowel sounds, soft, nontender, no hepatosplenomegaly Musculoskeletal: Right upper extremity in sling, right shoulder not palpated. Neurovascular intact distally to right shoulder. No pain over right wrist with full range of movement. Skin: no rashes, warm and dry Neurologic: awake; not confused Psychiatric: A+Ox3, euthymic affect Results & Data Results & Data ([facility]) Vital Signs (Past 12 Hours) Vital Signs Temp Pulse Pulse Resp BP BP Pulse Ox 04/08/20 13:00 82 18 167/90 H 94 04/08/20 12:45 83 140/111 H 99 04/08/20 12:40 81 184/132 H 93 04/08/20 12:35 80 198/119 H 100 04/08/20 12:31 80 100 04/08/20 12:30 80 195/95 H 93 04/08/20 12:25 84 192/103 H 99 04/08/20 12:23 81 178/115 H 98 04/08/20 12:20 85 204/113 H 98 04/08/20 12:19 87 178/105 H 98 04/08/20 12:16 86 193/101 H 96 04/08/20 12:14 69 164/94 H 92 04/08/20 12:10 82 98 04/08/20 12:01 74 98 04/08/20 12:00 81 187/107 H 96 04/08/20 11:51 97 04/08/20 11:50 70 96 04/08/20 11:49 70 20 192/106 H 97 04/08/20 11:48 76 192/106 H 95 04/08/20 11:45 90 04/08/20 11:34 75 20 164/100 H 95 04/08/20 11:10 67 22 95 04/08/20 11:01 60 24 98 04/08/20 11:00 67 23 164/100 H 97 04/08/20 10:55 68 26 H 159/89 H 97 04/08/20 10:54 70 26 H 159/89 H 97 04/08/20 10:53 63 26 H 96 04/08/20 10:50 69 24 97 04/08/20 10:40 63 18 98 04/08/20 10:30 66 19 98 04/08/20 10:20 69 26 H 98 04/08/20 10:10 69 28 H 97 04/08/20 10:05 75 24 188/105 H 95 04/08/20 10:00 69 19 94 04/08/20 09:55 72 72 23 198/112 H 198/112 H 87 L 04/08/20 09:54 81 21 215/130 H 96 04/08/20 09:52 81 18 04/08/20 09:13 36.5 C 85 26 H 192/112 H 97 04/08/20 09:12 84 22 192/112 H 97 04/08/20 09:10 84 29 H 97 04/08/20 09:00 87 25 H 97 04/08/20 08:50 74 24 95 04/08/20 08:45 76 22 192/117 H 99 04/08/20 08:40 85 27 H 98 04/08/20 08:38 82 23 98 04/08/20 08:36 78 28 H 192/117 H [address] NONCONTRAST Impression: No acute intracranial abnormality. XR chest 1V not portable IMPRESSION: 1. Partially visualized right anterior shoulder dislocation. 2. Otherwise, no acute process within the chest. RIGHT SHOULDER 3 VIEWS IMPRESSION: Fracture/dislocation of the right humeral head as above. XR hip FRANCK 2v w pelvis IMPRESSION: Mild osteoarthritis within the bilateral hips. No fracture or dislocation. CT shoulder RT wo con (s/p reduction) IMPRESSION: 1. Acute, comminuted and mildly displaced fracture involves the greater tuberosity of the humeral head as detailed above. 2. No dislocation or acute fracture of the glenoid identified. 3. Mild to moderate glenohumeral with moderate AC joint osteoarthritis. Chondrocalcinosis with synovial calcifications. Medications Administered ECG Rate (beats per minute): 85 Rhythm: atrial fibrillation Findings: + other (Nonspecific T wave abnormality in inferior leads), + RBBB (Incomplete) and + left axis deviation Comparison ECG Date: from (December 14, 2019) Change: no significant change Code Status & VTE Plan VTE Prophylaxis Plan VTE Prophylaxis will be ordered: Yes PG Care Time/CCT Total # of Minutes Spent Total Time Spent with Patient: Total time spent is greater than 50% in coordination of care (as documented) at patient's floor/unit and/or counseling patient: Coding Level of Care Code 12994 OBS Care - Level 2 Diagnoses Fracture closed, humerus S42.252A Encounter type: initial encounter Fracture alignment: displaced Humerus Location: greater tuberosity Laterality: left Dislocation of shoulder region S43.005A Encounter type: initial encounter Laterality: left Permanent atrial fibrillation I48.21 (1) Fracture closed, humerus Encounter type: initial encounter Fracture alignment: displaced Humerus Location: greater tuberosity Laterality: left Qualified Code(s): S42.252A - Displaced fracture of greater tuberosity of left humerus, initial encounter for closed fracture (2) Dislocation of shoulder region Encounter type: initial encounter Laterality: left Qualified Code(s): S43.005A - Unspecified dislocation of left shoulder joint, initial encounter
[2020-04-08 15:36] LABS: INR 2.4 (0.9-1.1); Prothrombin Time 23.9 Seconds (9.0-12.0)
--- NOTE | 2020-04-08 15:37 | Emergency Department Note ---
Pre Sedation Assessment Vital Signs Temp Pulse Pulse Resp BP BP Pulse Ox 04/08/20 13:00 82 18 167/90 H 94 04/08/20 12:45 83 140/111 H 99 04/08/20 12:40 81 184/132 H 93 04/08/20 12:35 80 198/119 H 100 04/08/20 12:31 80 100 04/08/20 12:30 80 195/95 H 93 04/08/20 12:25 84 192/103 H 99 04/08/20 12:23 81 178/115 H 98 04/08/20 12:20 85 204/113 H 98 04/08/20 12:19 87 178/105 H 98 04/08/20 12:16 86 193/101 H 96 04/08/20 12:14 69 164/94 H 92 04/08/20 12:10 82 98 04/08/20 12:01 74 98 04/08/20 12:00 81 187/107 H 96 04/08/20 11:51 97 04/08/20 11:50 70 96 04/08/20 11:49 70 20 192/106 H 97 04/08/20 11:48 76 192/106 H 95 04/08/20 11:45 90 04/08/20 11:34 75 20 164/100 H 95 04/08/20 11:10 67 22 95 04/08/20 11:01 60 24 98 04/08/20 11:00 67 23 164/100 H 97 04/08/20 10:55 68 26 H 159/89 H 97 04/08/20 10:54 70 26 H 159/89 H 97 04/08/20 10:53 63 26 H 96 04/08/20 10:50 69 24 97 04/08/20 10:40 63 18 98 04/08/20 10:30 66 19 98 04/08/20 10:20 69 26 H 98 04/08/20 10:10 69 28 H 97 04/08/20 10:05 75 24 188/105 H 95 04/08/20 10:00 69 19 94 04/08/20 09:55 72 72 23 198/112 H 198/112 H 87 L 04/08/20 09:54 81 21 215/130 H 96 04/08/20 09:52 81 18 04/08/20 09:13 36.5 C 85 26 H 192/112 H 97 04/08/20 09:12 84 22 192/112 H 97 04/08/20 09:10 84 29 H 97 04/08/20 09:00 87 25 H 97 04/08/20 08:50 74 24 95 04/08/20 08:45 76 22 192/117 H 99 04/08/20 08:40 85 27 H 98 04/08/20 08:38 82 23 98 04/08/20 08:36 78 28 H 192/117 H 98 Pre-Sedation Airway Assessment Smoking Status: Never smoker Short, Thick Neck: No Thyromental Distance: > or= 3.5 Finger Breadths Oral Cavity: + WNL Mallampati Class: I ASA: ASA2 NPO Status Date of Last Intake of Fluids: 04/07/20 Date of Last Intake of Solid Food: 04/07/20 Notes The planned sedation has been discussed with the patient. Informed Consent was obtained. I have identified the patient, determined the appropriateness of sedation and have assessed the patient immediately prior to the procedure. All medicine(s) and interventions are by my order. : Dislocation of shoulder region Qualifiers: Encounter type: initial encounter Laterality: left Qualified Code(s): S43.005A - Unspecified dislocation of left shoulder joint, initial encounter Fracture closed, humerus Qualifiers: Encounter type: initial encounter Humerus Location: greater tuberosity Fracture alignment: displaced Laterality: left Qualified Code(s): S42.252A - Displaced fracture of greater tuberosity of left humerus, initial encounter for closed fracture
--- NOTE | 2020-04-08 15:38 | Emergency Department Note ---
Post Sedation Assessment Vital Signs Temp Pulse Pulse Resp BP BP Pulse Ox 04/08/20 13:00 82 18 167/90 H 94 04/08/20 12:45 83 140/111 H 99 04/08/20 12:40 81 184/132 H 93 04/08/20 12:35 80 198/119 H 100 04/08/20 12:31 80 100 04/08/20 12:30 80 195/95 H 93 04/08/20 12:25 84 192/103 H 99 04/08/20 12:23 81 178/115 H 98 04/08/20 12:20 85 204/113 H 98 04/08/20 12:19 87 178/105 H 98 04/08/20 12:16 86 193/101 H 96 04/08/20 12:14 69 164/94 H 92 04/08/20 12:10 82 98 04/08/20 12:01 74 98 04/08/20 12:00 81 187/107 H 96 04/08/20 11:51 97 04/08/20 11:50 70 96 04/08/20 11:49 70 20 192/106 H 97 04/08/20 11:48 76 192/106 H 95 04/08/20 11:45 90 04/08/20 11:34 75 20 164/100 H 95 04/08/20 11:10 67 22 95 04/08/20 11:01 60 24 98 04/08/20 11:00 67 23 164/100 H 97 04/08/20 10:55 68 26 H 159/89 H 97 04/08/20 10:54 70 26 H 159/89 H 97 04/08/20 10:53 63 26 H 96 04/08/20 10:50 69 24 97 04/08/20 10:40 63 18 98 04/08/20 10:30 66 19 98 04/08/20 10:20 69 26 H 98 04/08/20 10:10 69 28 H 97 04/08/20 10:05 75 24 188/105 H 95 04/08/20 10:00 69 19 94 04/08/20 09:55 72 72 23 198/112 H 198/112 H 87 L 04/08/20 09:54 81 21 215/130 H 96 04/08/20 09:52 81 18 04/08/20 09:13 36.5 C 85 26 H 192/112 H 97 04/08/20 09:12 84 22 192/112 H 97 04/08/20 09:10 84 29 H 97 04/08/20 09:00 87 25 H 97 04/08/20 08:50 74 24 95 04/08/20 08:45 76 22 192/117 H 99 04/08/20 08:40 85 27 H 98 04/08/20 08:38 82 23 98 04/08/20 08:36 78 28 H 192/117 H 98 Recovery Score Activity: Moves 4 extremities Respiration: Deep Breath/Cough Circulation: +/-20% PreAnes Value Consciousness: Fully Awake Oxygen Saturation: > 92% On Room Air Post Anesthesia Score: 10 Discharge Sedation Level of Care: Phase I Post Sedation Plan On clinical assessment, the patient appears to have tolerated the sedation without complications. Patient is recovering as anticipated. Patient will continue to be monitored by nursing and may be discharged when sedation discharge criteria are met per below protocol. Upon Completions of procedure up to 15 minutes continue every 5 minute vital signs and the P.A.R. score; then discharge to a Phase I or Fast Track to Phase II per the following guidelines: * Discharge Patient to appropriate Phase II area if PAR is 8 or greater or return to pre- procedure baseline. The post - procedure orders will be as directed. * If PAR score is less than 8 or not return to pre-procedure baseline then patient will follow Phase I monitoring till PAR is reached for Phase II. The Phase I may be done in procedure room or may call to secure a Phase I area. * If naloxone or flumazenil are used for reversal, hold in Phase I for con tinued monitoring from when last reversal dose was given for a minimum of 60 minutes or longer pending the nurse and/or physician discretion of patient condition before discharge to Phase II. Please call the Sedation Physician to re-evaluate and complete post-note for discharge to Phase II area. Do NOT discharge from procedure sedation or Phase 1 until post- sedation evaluation note is complete by procedure /sedation MD Sedation Discharge Instructions to be given to the patient at discharge to home. Sedation Data Sedation Times Sedation Start Date: 04/08/20 Sedation Start Time: 12:12 Sedation End Date: 04/08/20 Sedation End Time: 12:27 Total Sedation Time: 15 Procedure Times Procedure Start Time:: 12:12 Procedure End Time: 12:27 : Dislocation of shoulder region Qualifiers: Encounter type: initial encounter Laterality: left Qualified Code(s): S43.005A - Unspecified dislocation of left shoulder joint, initial encounter Fracture closed, humerus Qualifiers: Encounter type: initial encounter Humerus Location: greater tuberosity Fracture alignment: displaced Laterality: left Qualified Code(s): S42.252A - Displaced fracture of greater tuberosity of left humerus, initial encounter for closed fracture
[2020-04-08] MEDS ORDERED: traMADol HCL 50 MG TABLET PO PRN (19:13)
[2020-04-08] MEDS ORDERED: HYDROmorphone INJ 0.5 MG/0.5 ML SYR IV PRN (19:13)
[2020-04-08] MEDS ORDERED: traMADol HCL 50 MG TABLET ONE (19:21)
[2020-04-08] MEDS ORDERED: WARFARIN SOD 6 MG TAB PO ONE (19:30)
[2020-04-08] MEDS: ACETAMINOPHEN 500 MG TAB PO SCH (20:34)
[2020-04-08] MEDS ORDERED: ESCITALOPRAM OXALATE 10 MG TAB PO SCH (21:00)
[2020-04-08] MEDS ORDERED: ENALAPRIL MALEATE 10 MG TAB PO SCH (21:00)
[2020-04-08] MEDS ORDERED: METOPROLOL SUCC 25MG EXT REL TAB PO SCH (21:00)
[2020-04-09] MEDS: ACETAMINOPHEN 500 MG TAB PO SCH (05:54)
[2020-04-09 06:00] LABS: INR 2.8 (0.9-1.1); Prothrombin Time 27.7 Seconds (9.0-12.0)
[2020-04-09 07:42] VITALS: BP 151/82; TEMP 98.4; O2SAT 96
[2020-04-09] MEDS ORDERED: PANTOprazole 40 MG TAB PO SCH (09:00)
[2020-04-09] MEDS ORDERED: CHOLECALCIFEROL 1,000 UNITS 25 MCG TAB PO SCH (09:00)
[2020-04-09] MEDS ORDERED: CALCIUM 600MG + VIT D 400 IU TAB PO SCH (09:00)
[2020-04-09 12:35] VITALS: PULSE 90
--- NOTE | 2020-04-09 14:15 | Electrocardiogram Report ---
Test Reason : Blood Pressure : / mmHG Vent. Rate : 077 BPM Atrial Rate : 096 BPM P-R Int : 000 ms QRS Dur : 098 ms QT Int : 400 ms P-R-T Axes : 000 -42 026 degrees QTc Int : 452 ms Poor data quality, interpretation may be adversely affected Atrial fibrillation Left axis deviation Incomplete right bundle branch block Septal infarct (cited on or before 14-DEC-2019) Abnormal ECG When compared with ECG of 08-APR-2020 08:41, Nonspecific T wave abnormality no longer evident in Inferior leads Confirmed by Juventino Gallardo ([id number]) on 04/09/2020 2:15:15 PM Referred By: REFERRED SELF Confirmed By:Juventino Gallardo
[2020-04-09] MEDS ORDERED: WARFARIN SOD 4 MG TAB PO SCH (16:00)
--- NOTE | 2020-04-10 11:07 | Discharge Summary ---
Date of Service April 09, 2020 Admission HPI Per Admitting Provider Yamileth Hinojosa is a 74-year-old female who presents to the ER following a fall earlier this morning on ice. She fell onto her right side but did not hit her head. She denies any chest pain, shortness of breath, dizziness prior to falling. She denies any hip pain, back pain, wrist pain after falling. Any pain from the fall appears to be her right shoulder. In the ER CT head, hip and pelvis x-rays showed no acute abnormalities. Wrist x-ray showed dorsal tilt of the lunate suggesting dorsal intercalated segmental instability - however she reports no pain in this area. Right shoulder x-ray showed fracture/dislocation of the right humeral head as above. This was reduced successfully in the emergency room but required procedural sedation. That she is not safe to go home at this time due to drowsiness she was referred to medicine for admission and ongoing management to determine safety of discharge Principal Diagnosis Right shoulder dislocation and humerus fracture Discharge Exam Constitutional WD/WN, vitals as above comfortable; no acute distress Neck trachea midline, no thyromegaly Respiratory normal respiratory effort, lungs clear to auscultation Cardiovascular RRR, no murmur, no edema Gastrointestinal (Abdomen) normal bowel sounds, soft, nontender, no hepatosplenomegaly Musculoskeletal Head/Neck/Chest: normocephalic, head atraumatic and neck supple Spine: thoracic spine normal to inspection and lumbar spine normal to inspection; no lumbar spinal tenderness and no paraspinal tenderness Extremities: strength 5/5 throughout; + extremities abnormal to inspection (right arm in sling), no muscle atrophy, no cyanosis, no clubbing and no petechiae Shoulder: + limited ROM (right) and + joint line tenderness (right) Skin no rashes, warm and dry Neurologic patellar DTR's 2+ bilat, sensation intact and PERRL, EOMI, accommodation nl, no face palsy, no dysarthria Psychiatric A+Ox3, euthymic affect Lymphatic no cervical or axillary lymphadenopathy Discharge Data Allergies Allergy/AdvReac Type Severity Reaction Status Date / Time Iodinated Contrast Media Allergy Mild . Unverified 04/08/20 09:09 Sulfa (Sulfonamide Allergy Mild Verified 04/08/20 09:09 Antibiotics) adhesive tape Allergy Verified 04/08/20 09:09 cyclosporine [From Restasis] Allergy Verified 04/08/20 09:09 doxycycline Allergy Verified 04/08/20 09:09 metaxalone [From Skelaxin] Allergy Verified 04/08/20 09:09 Consultations 04/08/20 14:48 ED Decision to Admit Stat Ordered Studies 04/08/20 09:00 CT head/brain wo con Stat 04/08/20 12:47 CT shoulder RT wo con Stat Hospital Course (1) Fracture closed, humerus: Follow-up with orthopedics as previously arranged with Dr. Madera will see the patient in the clinic day after discharge instructed to remain in sling at all times until he sees her Continue with arm sling until follow-up appointment Pain control with acetaminophen 1 g p.o. 3 times daily Tramadol 50 mg as needed for pain (2) Dislocation of shoulder region: S/p reduction in emergency room (3) Permanent atrial fibrillation: Continue on usual warfarin dosing. PT/INR 2.4. Total Time Total Time Spent Total Time Spent (In Minutes): 20 minutes Total Time Includes: Examination of the Patient, Discharge Planning, Medication Reconciliation and Communication With Other Providers (Dr. Madera) Discharge Plan Discharge Items Patient Disposition: Home - Home Health Services Reason For Visit: SHOULDER DISLOCATION/FRACTURE Discharge Diagnosis: Right shoulder dislocation Right humeral head fracture Condition on Discharge: Good Goals: keep right arm in sling at all times follow up with Dr. Madera on 04/10/20 Activity: Per Instructions section Lifting Comment: no lifting with right arm Bathing Comment: await instructions from Dr. Ulloa, keep arm in sling for tonight Driving/Machine Use: No limitations Weightbearing: Full weightbearing Non-emergency contact: Primary Care Provider and Surgeon Call non-emergency contact if: you have any medication questions, your symptoms worsen and your pain is not controlled Follow-up/Referrals: Nael Don MD [Primary Care Provider] - 04/16/20 3:15 pm (1-2 weeks) Daniel Madera DO [Physician] - 04/10/20 10:20 am (Dr. Madera needs to see her tomorrow, 04/10/20, ) Diet: Heart Healthy Addtl Attending Provider Instructions: Medications: - ULTRAM: take as needed for pain with right shoulder Right shoulder dislocation, non-displaced fracture of right humerus head keep right arm in sling at all times Dr. Madera would like to see you in the office tomorrow he will provide further instruction use tylenol 650mg every 6 hours as needed for pain, use Ultram if tylenol is not enough no other fractures seen on imaging Pending Studies at Discharge: No Stand-Alone Forms: [facility], Smoking Cessation Medications and DC Order Prescriptions: New tramadol 50 mg Tablet 50 mg PO Q4H PRN (Reason: pain) 7 Days Qty: 20 RF: 0 Continued warfarin 4 mg tablet See Rx Instructions PO UD RF: 0 cholecalciferol (vitamin D3) 50 mcg (2,000 unit) capsule 50 mcg PO Q2D RF: 0 acetaminophen 650 mg Tablet Extended Release 650 mg PO TID PRN (Reason: Pain and Fever) Qty: 0 RF: 0 escitalopram oxalate [Lexapro] 10 mg Tablet 10 mg PO HS Qty: 0 RF: 0 calcium carbonate-vitamin D3 [Calcium 500 + D] 500 mg(1,250mg) -200 unit tablet 1 tab PO DAILY Qty: 0 RF: 0 metoprolol succinate [Toprol XL] 25 mg tablet extended release 24 hr 12.5 mg PO HS Qty: 0 RF: 0 Prilosec OTC 20 mg tablet,delayed release (DR/EC) 20 mg PO DAILY Qty: 90 RF: 1 quinapril 40 mg tablet 40 mg PO HS Qty: 90 RF: 3 azelastine 137 mcg (0.1 %) aerosol,spray 1 sprays intranasal DAILY PRN (Reason: Allergy Symptoms) RF: 0 Discharge Orders: Discharge Order (Routine); Ordered 04/09/20 Ordered By: Nabeel Grant Admission Data Admit Date/Time: 04/08/20 15:26 Attending Provider: Nabeel Grant Admit Provider: Jose Guerrero Primary Care Provider: Nael Don Other Providers: Jose Guerrero Other Interventions: Discharge Summary Assessment (RN) Last Done: 04/09/20 12:33 Coding Level of Care Code 54465 OBS Care - Discharge Diagnoses Fracture closed, humerus S42.252A Encounter type: initial encounter Fracture alignment: displaced Humerus Location: greater tuberosity Laterality: left Dislocation of shoulder region S43.005A Encounter type: initial encounter Laterality: left Permanent atrial fibrillation I48.21
[2020-04-11] MEDS ORDERED: WARFARIN SOD 6 MG TAB PO SCH (16:00)
== END 2020-04-09 14:04 | disposition home health service (06) ==
LOC: ED 08:19 → 3E 08:19 → SUATTDRO 15:26 → 3E 18:23

== ENCOUNTER 2020-04-19 11:12 | Inpatient (IN) ==
--- NOTE | 2020-04-18 07:45 | History & Physical Report ---
Date of Service April 18, 2020 Assessment & Plan (1) Fracture closed, humerus: We will proceed with an open reduction internal fixation of the right proximal humerus. Postoperatively she will be placed in a sling and kept overnight in the hospital for postoperative medical management. We will hold off on physical therapy for the first 6 weeks. History of Present Illness Chief Complaint: Greater tuberosity fracture of the right shoulder. Primary Care Provider: Nael Don MD And is a pleasant 74-year-old female who fell about a week ago sustaining a fracture dislocation of her right shoulder. The shoulder was reduced in the emergency room and she was placed in an arm sling. She had a CAT scan of her shoulder as well as x-rays. She presented my office. The x-rays and CAT scan showed a displaced greater tuberosity fragment. After extensive discussions in the office, she has elected to proceed with an open reduction internal fixation of the right greater tuberosity fracture fragment.. Allergies Allergy/AdvReac Type Severity Reaction Status Date / Time Iodinated Contrast Media Allergy Mild . Unverified 04/08/20 09:09 Sulfa (Sulfonamide Allergy Mild Verified 04/08/20 09:09 Antibiotics) adhesive tape Allergy Verified 04/08/20 09:09 cyclosporine [From Restasis] Allergy Verified 04/08/20 09:09 doxycycline Allergy Verified 04/08/20 09:09 metaxalone [From Skelaxin] Allergy Verified 04/08/20 09:09 Home Medications Medication Instructions Recorded Confirmed Type acetaminophen 650 mg PO TID PRN #0 cap 09/27/16 04/16/20 History escitalopram oxalate [Lexapro] 10 mg PO HS #0 tab 09/27/16 04/16/20 History calcium carbonate 500 mg (1,250 1 tab PO DAILY #0 tab 12/20/18 04/16/20 History mg)-vitamin D3 200 unit tablet metoprolol succinate 25 mg 12.5 mg PO HS #0 tab 01/24/19 04/16/20 History tablet,extended release 24 hr omeprazole magnesium 20 mg 20 mg PO DAILY #90 cap 05/17/19 04/16/20 Rx tablet,delayed release azelastine 1 sprays INTRANASAL DAILY PRN 12/14/19 04/16/20 History quinapril 40 mg tablet 40 mg PO HS #90 tab 11/02/20 02/09/21 Rx warfarin 4 mg tablet See Rx Instructions PO UD tab 01/18/20 04/16/20 History cholecalciferol (vitamin D3) 50 50 mcg PO Q2D cap 02/07/20 04/16/20 History mcg (2,000 unit) capsule hydromorphone 2 mg tablet 2 mg PO Q6H PRN #20 tab 04/16/20 04/16/20 Rx Past Med/Surg History Medical History Acute dehydration Anticoagulated on Coumadin Anxiety Arthritis, multiple joint involvement Dislocation of shoulder region Diverticulosis Enteritis Generalized anxiety disorder GERD (gastroesophageal reflux disease) GERD (gastroesophageal reflux disease) History of colon polyps Hyperlipidemia Hyperlipidemia Hypertension Hypertension Leukopenia Lower abdominal pain Lumbar canal stenosis Lymphedema Permanent atrial fibrillation Permanent atrial fibrillation Person under investigation for COVID-19 Premature ventricular contractions (PVCs) (VPCs) Scleroderma dx years ago but currently asymptomatic Sicca syndrome Vomiting and diarrhea Surgical History History of carpal tunnel surgery History of Mohs micrographic surgery for skin cancer History of total abdominal hysterectomy History of tubal ligation Status post spinal disc removal C2-C3 Family History Son , age 48 from influenza Alcoholism Mother Family history of CABG Osteoporosis Vascular dementia Father Coronary heart disease Hypertension Peripheral vascular disease Brother Coronary heart disease Social History Smoking Status: Never smoker Hx Alcohol Use: Yes Alcohol type: wine Hx Substance Use: No Preferred Language: Austrian Communication Ability: Effective Visual Impairment: Limited Hearing Ability: Normal [employer] E Business Developer Required: No Beliefs That Will Affect Care: None marital status: Current Living Situation: Spouse Current Living Situation Comment: caregiver for current occupational status: retired current occupation: former teach How many Children do You have Comment: 1 son - he is Feels Safe at Home: Yes Dental Care, Regularly: Yes Physical Activity Frequency: 3-4 Times per Week Seatbelt Use: always Sunscreen Use: Yes Assistive Devices: Glasses Review of Systems All systems reviewed & are unremarkable except as noted in HPI & below. Physical Exam On physical examination of the right shoulder, she has a lot of ecchymosis. She has a little bit of weakness in her radial nerve. I am unable to do any motor strength exam with her shoulder due to the pain.. Constitutional WD/WN, vitals as above Eyes PERRL, conjunctivae normal, anicteric sclerae ENMT external ear and nose normal, oropharynx normal Neck trachea midline, no thyromegaly Respiratory normal respiratory effort Cardiovascular RRR, no murmur, no edema Gastrointestinal (Abdomen) normal bowel sounds, soft, nontender, no hepatosplenomegaly Psychiatric A+Ox3, euthymic affect Results & Data Results & Data Laboratory Results . Diagnostic Findings X-rays and CT scan of the right shoulder do show a reduced shoulder but a displaced greater tuberosity fragment. It seems to be displaced mostly posteriorly.. PG Care Time/CCT Total # of Minutes Spent Total Time Spent with Patient: Total time spent is greater than 50% in coordination of care (as documented) at patient's floor/unit and/or counseling patient: Coding Level of Care Code None Diagnoses Fracture closed, humerus S42.252A Encounter type: initial encounter Fracture alignment: displaced Humerus Location: greater tuberosity Laterality: left (1) Fracture closed, humerus Encounter type: initial encounter Fracture alignment: displaced Humerus Location: greater tuberosity Laterality: left Qualified Code(s): S42.252A - Displaced fracture of greater tuberosity of left humerus, initial encounter for closed fracture
--- NOTE | 2020-04-18 09:16 | Anesthesiology Consultation ---
Date of Service April 18, 2020 Assessment & Plan (1) Encounter for pre-operative examination: COVID Status: As of 04/18 nurse assessment, patient denies travel to endemic area, known exposure/sick contacts, or symptoms of COVID19. Preoperative COVID19 testing completed on 04/16/20 at [facility], results are currently pending. Check PT/INR AM DOS. Chart Review Chart Review: Acceptable Risk for Surgery and Patient NOT seen in Pre Admission Testing History Surgery Operation Date: 04/19/20 11:50 Proposed Procedures p Right Shoulder Open Reduction Internal Fixation - Daniel Madera DO Height/Weight Height: 5 ft Weight: 52.617 kg Allergies Allergy/AdvReac Type Severity Reaction Status Date / Time adhesive tape Allergy Mild itchy rash Verified 04/18/20 08:40 cyclosporine [From Restasis] Allergy Mild bah eyes Verified 04/18/20 08:40 doxycycline Allergy Mild Nausea Verified 04/18/20 08:40 hydrocodone Allergy Mild pain, rash Verified 04/18/20 08:40 metaxalone [From Skelaxin] Allergy Mild nausea, Verified 04/18/20 08:40 dizzy Sulfa (Sulfonamide Allergy Mild Rash Verified 04/18/20 08:40 Antibiotics) Medications Home Medications Medication Instructions Recorded Confirmed Last Taken acetaminophen 650 mg PO TID PRN #0 cap 09/27/16 04/18/20 04/07/20 escitalopram oxalate [Lexapro] 10 mg PO HS #0 tab 09/27/16 04/18/20 04/07/20 calcium carbonate 500 mg (1,250 1 tab PO DAILY #0 tab 12/20/18 04/18/20 04/07/20 mg)-vitamin D3 200 unit tablet metoprolol succinate 25 mg 12.5 mg PO HS #0 tab 01/24/19 04/18/20 04/07/20 tablet,extended release 24 hr azelastine 1 sprays INTRANASAL DAILY PRN 12/14/19 04/18/20 04/07/20 quinapril 40 mg tablet 40 mg PO HS #90 tab 01/08/20 04/18/20 04/07/20 warfarin 4 mg tablet See Rx Instructions PO UD tab 01/18/20 04/18/20 04/07/20 cholecalciferol (vitamin D3) 50 50 mcg PO Q2D cap 1204/18/20 04/07/20 mcg (2,000 unit) capsule hydromorphone 2 mg tablet 2 mg PO Q6H PRN #20 tab 04/16/20 04/18/20 Unknown omeprazole magnesium [Prilosec OTC] 20 mg PO QAM 04/18/20 04/18/20 Unknown Past Medical History Medical History Anticoagulated on Coumadin For permanent afib Anxiety Arthritis, multiple joint involvement Dislocation of shoulder region Diverticulosis GERD (gastroesophageal reflux disease) History of colon polyps Hyperlipidemia Hypertension Lumbar canal stenosis Lymphedema left leg Permanent atrial fibrillation dx 2016 - follow with Dr John SPENCE (postoperative nausea and vomiting) Premature ventricular contractions (PVCs) (VPCs) Scleroderma dx years ago but currently asymptomatic Past Family History Family History Son , age 48 from influenza Alcoholism Mother Family history of CABG Osteoporosis Vascular dementia Father Coronary heart disease Hypertension Peripheral vascular disease Brother Coronary heart disease Past Surgical History Surgical History History of carpal tunnel surgery left History of Mohs micrographic surgery for skin cancer History of total abdominal hysterectomy History of tubal ligation Status post spinal disc removal C2-C3 Social History Smoking Status: Never smoker Do You Dip or Chew Tobacco: No Hx Alcohol Use: Yes Alcohol type: wine alcohol intake frequency: 0-2 drinks per day Hx Substance Use: No substance use type: does not use Testing Laboratory Results 04/08/20 WBC: 6.90 H/H: 15.1/44.6 PLATELETS: 201 SODIUM: 138 POTASSIUM: 3.4 CHLORIDE: 102 CO2: 24 BUN: 17 CREATININE: 0.76 GLUCOSE: 137 04/09/20 PT: 27.7 INR: 2.8 Electrocardiogram Date: 04/08/20 Poor data quality, interpretation may be adversely affected Atrial fibrillation @ 77bpm Left axis deviation. Incomplete right bundle branch block. Septal infarct (cited on or before 14-DEC-2019) When compared with ECG of 08-APR-2020 08:41, Nonspecific T wave abnormality no longer evident in Inferior leads. Chest X-Ray Date: 04/08/20 1. Partially visualized right anterior shoulder dislocation. 2. Otherwise, no acute process within the chest. Stress Test Date: 09/28/16 Type: exercise The stress echocardiogram is negative for inducible ischemia. Exercise capacity is above average. Normal resting wall motion and no stress-induced wall motion abnormality. Left ventricular systolic function is normal. There is borderline concentric left ventricular hypertrophy. Ejection Fraction = 60-65%. There is mild to moderate mitral regurgitation.
[~2020-04-19 11:12] MED LIST changes: -ACET1TAB84 PO; -AMLO5TAB3 PO; +BUPIVACAINE 0.5 % 5 MG/1 ML PF 10ML VIAL ONE; -CALC-5 PO; -ESCI10TA17 PO; +LR 15ML/HR IV SCH; +LR 60ML/HR IV SCH; -METO25TA3 PO; +MIDAZOLAM HCL 1 MG/ML 2ML VIAL ONE; +ONDANSETRON INJ 2 MG/ML 2 ML VIAL ONE; -PRLSR20 PO; +PROPOFOL IV EMULSION 10 MG/ML 20 ML VIAL IV ONE; -QUIN1TAB49 PO; -WARF4TAB PO; -WARF4TAB8 PO; +ceFAZolin 1000MG 1,000 MG/7.5 ML SYR IV SCH; +fentaNYL citrate 100 MCG/2 ML VIAL ONE
--- NOTE | 2020-04-19 11:18 | History & Physical Bridge Note ---
Date of Service April 19, 2020 History & Physical Bridge Note I have examined the patient, reviewed the History & Physical and in the interval since the performance of the History & Physical I have noted the following changes of clinical significance: no changes noted
[2020-04-19] MEDS ORDERED: BUPIVACAINE/EPINEPHRINE 0.5% MPF 1:200,000 30 ML VIAL ONE (11:52)
[2020-04-19 12:06] LABS: INR 1.4 (0.9-1.1); Partial Thromboplastin Ratio 1.4; Partial Thromboplastin Time 37.3 Seconds (21.0-31.0)
[2020-04-19] MEDS ORDERED: ePHEDrine sulfate 50 MG/ML AMP IV PRN (12:33)
[2020-04-19] MEDS ORDERED: fentaNYL citrate 100 MCG/2 ML VIAL IV PRN (12:33)
[2020-04-19] MEDS ORDERED: ATROPINE SULFATE 0.1 MG/ML 10ML SYR IV PRN (12:33)
[2020-04-19] MEDS ORDERED: ONDANSETRON INJ 2 MG/ML 2 ML VIAL IV PRN ×2 (12:33→16:12)
[2020-04-19] MEDS ORDERED: PROMETHAZINE HCL 12.5 MG in SODIUM CHLORIDE 0.9% 50 ML IV PRN (12:33)
[2020-04-19] MEDS ORDERED: PHENYLEPHRINE HCL 10 MG/ML VIAL ONE (13:31)
[2020-04-19] MEDS ORDERED: PHENYLEPHRINE 100MCG/ML 5ML SYR ONE (13:31)
[2020-04-19] MEDS ORDERED: ONDANSETRON INJ 2 MG/ML 2 ML VIAL ONE (13:35)
[2020-04-19] MEDS ORDERED: DEXAMETHASONE SOD INJ 4 MG/ML VIAL ONE (13:35)
--- NOTE | 2020-04-19 14:44 | Operative Report ---
PG Post Operative Report Pre & Post Diagnosis Operation Date: 04/19/20 13:00 Pre-Op Diagnosis: Right greater tuberosity fracture status post dislocation with subscapularis tear Post-Op Diagnosis: Right greater tuberosity fracture status post dislocation with subscapularis tear and subluxated long head of the biceps tendon I identified the patient and participated in the time-out.: Yes Procedure Operation Date: 04/19/20 13:00 Actual Procedures p Right Shoulder Open Reduction Internal Fixation of greater tuberosity with open biceps tenodesis and open subscapularis rotator cuff repair as a distinct and separate procedure (modifier 59) (Right) - Daniel Madera DO Surgeon Daniel Madera DO Senior Qa Analyst Daniel Haas PAC Estimated Blood Loss 250 Findings Consistent with Post-Op Diagnosis Specimens None Complications none Disposition Disposition: Recovery Room Indications And is a pleasant 74-year-old female who sustained a fracture dislocation of her right shoulder over a week ago. She was reduced in the emergency room and came to my office. X-rays and CT scan showed a a posterior displaced greater tuberosity fracture. She was having a lot of pain in the shoulder as well. After extensive discussions, she elected proceed with an open reduction internal fixation of the right proximal humerus. Description of Procedure On April 19, 2020 and arrived at [facility] for the above procedure. She was seen in the preoperative holding area and the operative extremity was identified and signed. She is given a preoperative antibiotic and a right interscalene nerve block. She was taken back to the operating room and laid on the table in supine position. She was put under general anesthesia. She was put into the beachchair position. The right shoulder was prepped and draped in sterile fashion. A timeout was done. The patient and the operative extremity was properly identified. A deltopectoral approach was used. Dissection was taken down through the fascia. The deltoid was retracted laterally and the conjoined tendon was retracted medially. The anterior shoulder was easily exposed. The long head of the biceps tendon was actually subluxated posteriorly. It seems that after the dislocation and relocation the biceps tendon was caught within the fracture fragment. The biceps tendon was then tenodesed to the upper border of the pectoralis major. The remainder the tendon was discarded. This was a distinct and separate procedure. There was a tear of the inferior half of the subscapularis. Blood clots were removed from this area. There was a tear in the rotator interval and the subscapularis was retracted posteriorly. The wound was irrigated. The fracture bed was prepared. Multiple Vicryl sutures were used to gain control of the rotator cuff. The rotator cuff was then reduced anteriorly. Once I was happy with the reduction sutures were placed in the rotator interval. This helped hold the reduction in place. After evaluation I felt that it was better to fix these thin fracture fragments with suture rather than place a plate. Multiple screw holes were placed in the humeral shaft. #2 FiberWire suture was passed through the humeral shaft and around the fracture fragments. They were tied down. This gave a nice repair of the rotator cuff back to its anatomic origin. Fluoroscopic images were taken. I was happy with the overall alignment. There was significant impaction at the fracture site so we did our best with the reduction of the bony fragments with our biggest concern to realign the rotator cuff. Once the fracture fragments were fixed attention was turned to the subscapularis. A FiberWire suture was placed in the inferior border the subscapularis. This completed an open subscapularis repair. The wound was then irrigated. The shoulder was brought through a full range of motion and felt to be stable. Final fluoroscopic images were obtained. The fascia was closed with 2-0 Vicryl suture. Skin was closed with 2-0 Vicryl and magdalena. She was placed in a Silverlon dressing. She was then extubated and transferred to a [facility]. She was taken to the postanesthesia care unit in stable condition. She tolerated the procedure well. Daniel Haas PA-C, was present for the entire procedure. He was critical for patient positioning, prepping, draping, retraction exposure, wound closure and application of sterile dressing. I attest to the content of the Intraoperative Record and any orders documented therein. Any exceptions are noted below.
--- NOTE | 2020-04-19 14:54 | Fluoroscopy Report ---
FL shoulder RT min 2V CLINICAL HISTORY: Right Shoulder ORIF COMPARISON STUDY: 04/08/2020 FLUOROSCOPY TIME: 30 seconds. NUMBER OF FLUOROSCOPIC IMAGES: 2 FINDINGS: 2 intraoperative fluoroscopic spot images demonstrate a proximal humeral fracture involving the greater tuberosity. IMPRESSION: Intraoperative fluoroscopic spot images demonstrating a proximal humeral fracture involv ing the greater tuberosity. ACT 112: Negative or not required by law. Electronically signed by: Yfn Ovalle M.D. 04/19/2020 2:53 PM
[2020-04-19] MEDS ORDERED: LABETALOL HCL IV 5 MG/ML 20ML IV ONE (15:09)
[2020-04-19] MEDS ORDERED: LABETALOL HCL IV 5 MG/ML 20ML IV STA (15:39)
--- NOTE | 2020-04-19 15:52 | Anesthesiology Progress Note ---
Date of Service April 19, 2020 Anesthesia Post Procedure Vital Signs Vital Signs: Temp Pulse Pulse Resp BP Pulse Ox 04/19/20 15:40 36.6 C 91 H 21 160/83 H 97 04/19/20 15:30 84 18 147/98 H 99 04/19/20 15:20 76 18 161/77 H 99 04/19/20 15:10 61 22 184/121 H 98 04/19/20 15:03 36.4 C L 78 20 186/99 H 100 04/19/20 11:41 36.7 C 90 18 176/107 H 98 Pain Intensity Right Shoulder: Pain Intensity: 0 Transfer of Care Handoff Completed per policy Notes Mental Status: alert / awake / arousable Patient Amnestic to Procedure: Yes Nausea / Vomiting: adequately controlled Pain: adequately controlled Airway Patency, RR, SpO2: stable & adequate BP & HR: stable & adequate Hydration State: stable & adequate Anesthetic Complications: no major complications apparent
[2020-04-19] MEDS ORDERED: METOCLOPRAMIDE HCL INJ 5 MG/ML 2 ML VIAL IV PRN (16:12)
[2020-04-19] MEDS ORDERED: oxyCODONE HCL IR 5 MG TAB (IMMEDIATE RELEASE) PO PRN (16:12)
[2020-04-19] MEDS ORDERED: HYDROmorphone INJ 0.5 MG/0.5 ML SYR IV PRN (16:12)
[2020-04-19] MEDS ORDERED: bisacodyL 10 MG SUPP PR PRN (16:12)
[2020-04-19] MEDS ORDERED: MAGNESIUM HYDROXIDE SUSP 30 ML UDC PO PRN (16:12)
[2020-04-19] MEDS ORDERED: NALOXONE HCL 0.4 MG/1 ML VIAL/CARP IV PRN (16:12)
[2020-04-19] MEDS ORDERED: SODIUM CHLORIDE 0.9% 1000ML 1,000 ML IV SCH (16:12)
[2020-04-19] MEDS: KETOROLAC TROMETHAMINE 15 MG/ML VIAL IV SCH (17:22)
[2020-04-19] MEDS ORDERED: WARFARIN SOD 4 MG TAB PO SCH (17:30)
[2020-04-19] MEDS: DOCUSATE SODIUM 100 MG CAP PO SCH (20:14)
[2020-04-19] MEDS ORDERED: ESCITALOPRAM OXALATE 10 MG TAB PO SCH (21:00)
[2020-04-19] MEDS ORDERED: METOPROLOL SUCC 25MG EXT REL TAB PO SCH (21:00)
[2020-04-19] MEDS ORDERED: ENALAPRIL MALEATE 10 MG TAB PO SCH (21:00)
[2020-04-19] MEDS ORDERED: SENNA 8.6 MG TAB PO SCH (21:00)
[2020-04-19] MEDS: ACETAMINOPHEN 500 MG TAB PO SCH (22:12)
[2020-04-20] MEDS: KETOROLAC TROMETHAMINE 15 MG/ML VIAL IV SCH ×2 (00:28→05:25)
[2020-04-20] MEDS ORDERED: COUGH DROP (SUGAR FREE) LOZ 24 LOZ/1 BOX BUCCAL ONE (03:20)
[2020-04-20] MEDS: ACETAMINOPHEN 500 MG TAB PO SCH (05:25)
[2020-04-20] MEDS ORDERED: dexAMETHasone 4 MG TAB PO SCH (08:00)
--- NOTE | 2020-04-20 08:24 | Orthopedic Progress Note ---
Date of Service April 20, 2020 Assessment & Plan (1) Status post shoulder surgery: Overall she is doing fairly well. She was started back on her Coumadin last night. She will be in a sling for 6 weeks. We will hold off on physical therapy until the 6-week jef. She can be discharged home later today. I gave her some Dilaudid for pain meds. We will see her in the office in 2 weeks. Candice Carson was seen and examined at bedside this morning. Overall she is doing fairly well. She is not having much pain in the right shoulder. She was able to get some sleep last night. She has no complaints. . Review of Systems All systems reviewed & are unremarkable except as noted in HPI & below. Physical Exam On physical examination the right shoulder, the dressing is clean and dry. She is wearing her sling as instructed. She can dorsiflex her wrist and her fingers but she has some trouble extending her thumb. She still has some numbness. She cannot radial deviate her wrist. She did have some neurologic compromise before the surgery and that was documented. . Results & Data Results & Data Laboratory Results . Diagnostic Findings . PG Care Time/CCT Total # of Minutes Spent Total Time Spent with Patient: Total time spent is greater than 50% in coordination of care (as documented) at patient's floor/unit and/or counseling patient: Coding Level of Care Code 92082 Post Operative Follow-Up Diagnoses Status post shoulder surgery Z98.890
--- NOTE | 2020-04-20 08:25 | Discharge Summary ---
Date of Service April 20, 2020 Admission HPI (Per Admitting) And is a pleasant 74-year-old female who fell about a week ago sustaining a fracture dislocation of her right shoulder. The shoulder was reduced in the emergency room and she was placed in an arm sling. She had a CAT scan of her shoulder as well as x-rays. She presented my office. The x-rays and CAT scan showed a displaced greater tuberosity fragment. After extensive discussions in the office, she has elected to proceed with an open reduction internal fixation of the right greater tuberosity fracture fragment.. Admission Exam (Per Admitting) On physical examination of the right shoulder, she has a lot of ecchymosis. She has a little bit of weakness in her radial nerve. I am unable to do any motor strength exam with her shoulder due to the pain.. Principal Diagnosis Same as "Discharge Diagnosis" noted below under Discharge Instructions. Discharge Exam On physical examination the right shoulder, the dressing is clean and dry. She is wearing her sling as instructed. She can dorsiflex her wrist and her fingers but she has some trouble extending her thumb. She still has some numbness. She cannot radial deviate her wrist. She did have some neurologic compromise before the surgery and that was documented. . Discharge Data Consultations 04/19/20 16:12 Consult Case Management - Discharge Planning Routine Procedures Performed Operation Date: 04/19/20 13:00 Actual Procedures p Right Shoulder Open Reduction Internal Fixation(Right) - Daniel Madera DO Ordered Studies 04/19/20 FL fluoroscopy <1hr Routine FL shoulder RT min 2V Routine 04/19/20 12:39 US - OR guided needle placemen Routine Hospital Course (1) Status post shoulder surgery: On April 19, 2020 and arrived at [facility] and underwent an open reduction internal fixation of the right proximal humerus without complication. She had a general anesthetic and a right interscalene nerve block. Postoperatively she was started back on her Coumadin for DVT prophylaxis and transferred to the general orthopedic floors. Her hospital course was uneventful. On postop day #1 she was able to participate well with physical therapy doing ambulation and range of motion exercises. She was then transferred to home with oral pain medications. She will follow-up with orthopedics in 2 weeks. PG Care Time/CCT Total # of Minutes Spent Total Time Spent with Patient: Total time spent is greater than 50% in coordination of care (as documented) at patient's floor/unit and/or counseling patient: Discharge Plan Discharge Items Patient Disposition: Home - Home Health Services Reason For Visit: Right Shoulder Dislocation Right Humeral Fracture Discharge Diagnosis: Fixation of right shoulder Activity: Resume your previous activity Non-emergency contact: Surgeon Call non-emergency contact if: your wound has increased redness and your wound has increased drainage Follow-up/Referrals: Nael Don MD [Primary Care Provider] - Diet: Regular Addtl Attending Provider Instructions: Activity and Therapy Recommendations: * Stay in your sling for 6 weeks. You may use your hand and wrist while in the sling. We will start physical therapy 6 weeks out from the surgery. Medications: * Narcotic You will likely be sent home from the hospital with a prescription for the narcotic pain medication that worked best throughout your stay. * Other medications may be prescribed for specific circumstances. If you have any questions, please call the office at . * Resume previous home medications unless otherwise instructed Dressing Care: Leave the Silverlon dressing in place for 7 days. After 7 days you may remove the dressing. If the incision is not draining then you may leave the magdalena open to air. If there is a little bit of drainage or if the magdalena are getting stuck on your clothing then cover the incision with a dry dressing. The magdalena will be removed at your 2 week follow-up appointment. Showering: You may shower with the Silverlon dressing in place. Do not let the shower spray hit the dressing directly. Pat the Silverlon dressing dry. If the dressing becomes wet underneath, then simply remove the dressing. Keep the incision dry until you are 7 days out from the day of surgery. After 7 days you may remove the Silverlon dressing and shower with the magdalena exposed. Let soapy water run over the magdalena and pat them dry. Do not scrub or soak the incision. Things To Watch For: * Drainage from the incision site that occurs more than one week after your surgery. * Increased redness at the incision site. * Fever above 102 degrees Fahrenheit. * Unusual chest pain or shortness of breath. * Call [facility] at with any of the above problems Follow-Up Visit: Follow-up with Dr. Madera's PA (Daniel Haas) 2-3 weeks after your day of surgery. He will remove your magdalena and answer any questions. If you have any additional questions or concerns, Dr Madera is usually in the office at the same time and will be available An appointment was probably scheduled when you signed-up for surgery in the office. If you have any questions call More detailed instructions as well as Frequently Asked Questions were provided in a folder by our office when you signed-up for surgery. Please review these instructions when you get home. If you have any further questions or concerns, please feel free to call the office at [phone] Pending Studies at Discharge: No Stand-Alone Forms: My [facility] Medications and DC Order Prescriptions: Continued warfarin 4 mg tablet See Rx Instructions PO UD RF: 0 cholecalciferol (vitamin D3) 50 mcg (2,000 unit) capsule 50 mcg PO Q2D RF: 0 acetaminophen 650 mg Tablet Extended Release 650 mg PO TID PRN (Reason: Pain and Fever) Qty: 0 RF: 0 escitalopram oxalate [Lexapro] 10 mg Tablet 10 mg PO HS Qty: 0 RF: 0 calcium carbonate-vitamin D3 [Calcium 500 + D] 500 mg(1,250mg) -200 unit tablet 1 tab PO DAILY Qty: 0 RF: 0 metoprolol succinate [Toprol XL] 25 mg tablet extended release 24 hr 12.5 mg PO HS Qty: 0 RF: 0 quinapril 40 mg tablet 40 mg PO HS Qty: 90 RF: 3 omeprazole magnesium [Prilosec OTC] 20 mg tablet,delayed release (DR/EC) 20 mg PO QAM RF: 0 hydromorphone [Dilaudid] 2 mg tablet 2 mg PO Q6H PRN (Reason: pain) Qty: 30 RF: 0 azelastine 137 mcg (0.1 %) aerosol,spray 1 sprays intranasal DAILY PRN (Reason: Allergy Symptoms) RF: 0 Discharge Orders: Discharge Order (Routine); Ordered 04/20/20 Ordered By: Daniel Madera Admission Data Admit Date/Time: 04/19/20 14:54 Attending Provider: Daniel Madera Admit Provider: Daniel Madera Primary Care Provider: Nael Don
[2020-04-20] MEDS: DOCUSATE SODIUM 100 MG CAP PO SCH (08:37)
[2020-04-20] MEDS ORDERED: MULTIVITAMIN TAB PO SCH (09:00)
[2020-04-20] MEDS ORDERED: PANTOprazole 40 MG TAB PO SCH (09:00)
[2020-04-22] MEDS ORDERED: WARFARIN SOD 6 MG TAB PO SCH (16:00)
== END 2020-04-20 10:58 | disposition home or self-care (01) | DRG 493 ==
LOC: ASU 11:12 → 3E 14:54

== ENCOUNTER 2023-06-24 19:08 | Observation (INO) ==
--- NOTE | 2023-06-24 19:45 | Emergency Department Note ---
Impression & Plan Syncope, Laceration of head, Anemia, Acute hyponatremia ED Provider Note NAME: DEBBIE ANTHONY AGE: 77 SEX: F : 1945 ARRIVES VIA: Ambulance INFORMANT: Patient ED PROVIDER(S): Rickie Lockhart DO CHIEF COMPLAINT: Syncope HPI: Patient is a 77-year-old female who presents to the ER with past medical history of depression, scleroderma, hypertension, hyperlipidemia, A-fib who presents to the ER for passing out 3 times. She notes she took her dog for a walk and came back and became very dizzy. She became lightheaded and passed out. Following this she woke up and got up and then passed out again 2 more times. She passed out for a total of 3 times. She complains of the head pain. She does have some lower back pain. No chest pain or shortness of breath preceding the event. Did have some belly pain with an episode of vomiting after this. No dysuria, urgency, or frequency. Additional history was obtained from present at bedside who notes that she passed out several times that she continued to try to get up to get to her dog. ADDITIONAL HISTORY OBTAINED: Per HPI Chronic Medical/Social Conditions Affecting Care: Per HPI PAST MEDICAL HISTORY:See Below PAST SURGICAL HISTORY:See Below FAMILY HISTORY:See Below SOCIAL HISTORY:See Below HOME MEDICATIONS:See Below ALLERGIES:See Below VITALS:See Below PHYSICAL EXAMINATION: GENERAL: Sitting up in bed, alert, well appearing, well nourished, no distress, non-toxic HEAD: Small stellate laceration in a 3 cm at the back of the scalp. EYE EXAM: normal conjunctiva. PERRL and EOM's intact. OROPHARYNX: no exudate, no erythema, lips, buccal mucosa, and tongue normal and mucous membranes are moist NECK: supple, no nuchal rigidity, no adenopathy, non-tender LUNGS: Clear to auscultation. Normal chest wall mechanics HEART: no murmurs, S1 normal and S2 normal ABDOMEN: abdomen soft, non-tender, normo-active bowel sounds, no masses, no rebound or guarding. BACK: Back is symmetrical on inspection and there is no deformity, no midline tenderness, no CVA tenderness. SKIN: no rashes and no bruising UPPER EXTREMITIES: upper extremities are grossly normal. LOWER EXTREMITIES: No pitting edema. NEURO EXAM: Normal sensorium, cranial nerves II-XII intact, normal speech, no weakness of arms, no weakness of legs. No drift. Finger to nose intact. Gross sensation intact. MEDICAL DECISION MAKING: Patient is a 77-year-old female who presents ER for above-stated complaint. IV was established blood work was obtained. Labs show no significant leukocytosis. Mild anemia 11. BMP with a hyponatremia 133. LFTs bilirubin was unremarkable. Troponin was negative. Lipase unremarkable. UA was clean. CT of the head and neck were unremarkable. CT abdomen pelvis was unremarkable. Patient was updated at bedside. She was given IV fluids. Laceration was repaired by myself at bedside with Dermabond. She was discussed with the hospitalist for further evaluation management treatment. Consults/Care Managements Discussions: Per [facility] Triage Nursing notes reviewed. Limited review of prior medical records performed Vital Signs: reviewed and remarkable for no significant abnormalities Differential diagnosis: Differential diagnosis includes etiologies such as vasovagal event, infection, hypoglycemia, electrolyte abnormalities, cardiac sources, intracerebral event, toxicologic, neurologic, as well as others were entertained. ER treatment provided: See below Diagnostics interpreted by me include EKG and cardiac monitoring as listed below: -Cardiac Monitoring: An order was placed for continuous cardiac monitoring. The monitor shows a rate of 90 with sinus rhythm. -ECG: A-fib rate 74 PVCs QTc 428 -Laboratory studies:Interpreted by me as stated above in MDM and shown below. Imaging studies: Xrays: As interpreted by me: Portable AP upright 1 view the chest shows no focal infiltrate CTs show: CT of the head cervical spine as well as abdomen pelvis is unremarkable Procedures:none Critical Care: None Past Med/Surg History Medical History Depression History of melanoma Seasonal allergies History of skin cancer History of COVID-19 05/2021- sore throat, cough, congestion, prater; resolved PONV (postoperative nausea and vomiting) Diverticulosis Lumbar canal stenosis History of colon polyps Lymphedema left leg Scleroderma dx years ago but currently asymptomatic Hyperlipidemia Anxiety Permanent atrial fibrillation dx 2016 - follow with Dr Lopez- last visit 1 mo ago- on eliquis daily GERD (gastroesophageal reflux disease) Hypertension Surgical History History of left cataract surgery Hx of colonoscopy History of Mohs micrographic surgery for skin cancer History of tubal ligation History of total abdominal hysterectomy History of carpal tunnel surgery left Status post spinal disc removal C2-C3 Family History Son Alcoholism Mother Family history of CABG Osteoporosis Vascular dementia Myocardial infarction Father Coronary heart disease Hypertension Peripheral vascular disease Brother Coronary heart disease Denies family history of Ovarian cancer Prostate cancer Breast cancer Colorectal cancer Social History Smoking Status: Never smoker Second Hand Exposure: No; Do You Dip or Chew Tobacco: No; Hx Alcohol Use: Yes (1 per day) Alcohol type: wine Hx Substance Use: No Preferred Language: Guamanian Communication Ability: Effective Visual Impairment: No Limitations Hearing Ability: Normal Body Former Required: No Beliefs That Will Affect Care: None marital status: / Current Living Situation: Alone current occupational status: retired current occupation: former teach How many Children do You have Comment: 1 son - he is Feels Safe at Home: Yes Dental Care, Regularly: Yes Physical Activity Frequency: 3-4 Times per Week Seatbelt Use: always Sunscreen Use: Yes Assistive Devices: Glasses Allergies Allergies Allergy/AdvReac Type Severity Reaction Status Date / Time adhesive tape Allergy Mild itchy rash Verified 06/24/23 22:45 cyclosporine [From Restasis] Allergy Mild bah eyes Verified 06/24/23 22:45 doxycycline Allergy Mild Nausea Verified 06/24/23 22:45 hydrocodone Allergy Mild pain, rash Verified 06/24/23 22:45 metaxalone [From Skelaxin] Allergy Mild nausea, Verified 06/24/23 22:45 dizzy Sulfa (Sulfonamide Allergy Mild Hives Verified 06/24/23 22:45 Antibiotics) metronidazole [From Flagyl] AdvReac Mild Gastrointestinal Verified 06/24/23 22:45 Upset Home Meds Home Medications Medication Instructions Recorded Confirmed escitalopram oxalate 10 mg tablet 10 mg PO HS #0 tabs 09/27/16 06/24/23 (Lexapro) calcium carbonate 500 mg-vitamin 1 tab PO QPM #0 tabs 12/20/18 06/24/23 D3 5 mcg (200 unit) tablet (Calcium 500 + D) omeprazole magnesium 20 mg 20 mg PO QAM 04/18/20 06/24/23 tablet,delayed release (Prilosec OTC) acetaminophen 650 mg 1,300 mg PO TID #0 caps 09/12/20 06/24/23 tablet,extended release cholecalciferol (vitamin D3) 50 0 mcg PO QPM 10/22/21 06/24/23 mcg (2,000 unit) capsule furosemide 20 mg tablet 20 mg PO DIRECTED PRN Edema 03/24/23 06/24/23 apixaban 5 mg tablet (Eliquis) 5 mg PO .HOLD 06/24/23 06/24/23 diclofenac sodium 1 % topical gel 0 g topical DIRECTED PRN Pain 06/24/23 06/24/23 Previous Rx's Medication Instructions Recorded telmisartan 40 mg tablet 40 mg PO DAILY #30 tabs 04/27/22 potassium chloride 10 mEq 10 meq PO DAILY #30 tabs 11/18/22 tablet,extended release(part/cryst) (Klor-Con M) azelastine 137 mcg (0.1 %) nasal 1 spray intranasal DAILY PRN 03/24/23 spray aerosol Allergy Symptoms #30 mL Results & Data (ED) Vital Signs Vital Signs - 24 hr 06/24/23 19:24 06/24/23 19:24 06/24/23 19:31 Temperature 36.4 C L Temperature Source Oral Pulse Rate 86 81 78 Pulse Rate from SpO2 Sensor 79 Respiratory Rate 20 16 Respiratory Effort / Characteristics Non-Labored Respiratory Depth Normal Respiratory Pattern Regular Blood Pressure 108/72 161/73 H Blood Pressure Mean 84 102 Pulse Oximetry 98 100 Oxygen Delivery Method Room Air Room Air Sepsis Recent Fever Within 48 Hours No Sepsis New/Unexplained Change in Mental Status N/A Sepsis Action Taken by Nursing No Action Required 06/24/23 19:40 06/24/23 20:00 06/24/23 21:13 Temperature Temperature Source Pulse Rate 78 79 83 Pulse Rate from SpO2 Sensor 78 71 84 Respiratory Rate 20 20 25 H Respiratory Effort / Characteristics Respiratory Depth Respiratory Pattern Blood Pressure 141/79 H 139/78 Blood Pressure Mean 99 98 Pulse Oximetry 94 98 99 Oxygen Delivery Method Room Air Room Air Sepsis Recent Fever Within 48 Hours Sepsis New/Unexplained Change in Mental Status Sepsis Action Taken by Nursing 06/24/23 21:30 06/24/23 22:00 06/24/23 22:30 Temperature Temperature Source Pulse Rate 73 78 87 Pulse Rate from SpO2 Sensor 74 79 80 Respiratory Rate 25 H 18 16 Respiratory Effort / Characteristics Respiratory Depth Respiratory Pattern Blood Pressure 143/80 H 144/89 H 115/96 Blood Pressure Mean 101 107 102 Pulse Oximetry 96 97 98 Oxygen Delivery Method Sepsis Recent Fever Within 48 Hours Sepsis New/Unexplained Change in Mental Status Sepsis Action Taken by Nursing Laboratory Data 06/24/23 19:30 06/24/23 19:30 Lab Results 06/24/23 06/24/23 Range/Units 19:30 21:10 WBC 10.40 (4.8-10.8) K/ul RBC 3.59 L (4.20-5.40) M/uL Hgb 11.4 L (12.0-16.0) g/dl Hct 33.7 L (37.0-47.0) % MCV 93.9 (80.0-100.0) fL MCH 31.8 (25.0-34.0) pg MCHC 33.8 (32.0-36.0) g/dL RDW Std Deviation 43.1 (36.4-46.3) fL RDW Coeff of Lobo 12.4 (11.5-14.5) % Plt Count 156 (130-400) K/uL MPV 11.6 (9.4-12.4) fL Immature Gran % (Auto) 0.5 % Neut % (Auto) 69.9 % Lymph % (Auto) 21.3 % Todd % (Auto) 7.8 % Eos % (Auto) 0.4 % Baso % (Auto) 0.1 % Neut # (Auto) 7.28 H (1.40-6.50) K/uL Lymph # (Auto) 2.21 (1.20-3.40) K/uL Todd # (Auto) 0.81 H (0.11-0.59) K/uL Eos # (Auto) 0.04 (0.00-0.50) K/uL Baso # (Auto) 0.01 (0.00-0.20) K/uL Immature Gran # (Auto) 0.05 (0.01-0.20) K/uL Sodium 133 L (136-145) mmol/L Potassium 3.5 (3.5-5.1) mmol/L Chloride 98 (98-107) mmol/L Carbon Dioxide 23 (21-32) mmol/L Anion Gap 12 H (3-11) BUN 31 H (6-23) mg/dl Creatinine 0.85 (0.6-1.2) mg/dl Est Cr Clr Drug Dosing 44.6 ml/min Est GFR ( Amer) 76.1 ml/min Est GFR (Non-Af Amer) 65.6 ml/min BUN/Creatinine Ratio 36.5 H (10-20) Glucose 140 H (70-99(Fasting)) mg/dl Calcium 10.3 (8.6-10.3) mg/dl Total Bilirubin 0.8 (0.2-1.0) mg/dl AST 22 (13-39) U/L ALT 14 (7-52) U/L Alkaline Phosphatase 61 (34-104) U/L Troponin I High Sens 12.2 (0-14) pg/ml Total Protein 6.4 (6.0-8.3) gm/dl Albumin 4.0 (3.4-5.0) gm/dl Globulin 2.4 L (2.5-4.0) gm/dl Albumin/Globulin Ratio 1.7 (0.9-2) Lipase 16 (11-82) U/L Urine Color Yellow Urine Appearance Clear (Clear) Urine pH 6.0 (4.5-7.5) Ur Specific Brandon 1.028 (1.000-1.030) Urine Protein Trace H (Negative) Urine Glucose (UA) Negative (Negative) Urine Ketones Negative (Negative) Urine Blood 1+ H (Negative) Urine Nitrite Negative (Negative) Urine Bilirubin Negative (Negative) Urine Urobilinogen Negative (Negative) Ur Leukocyte Esterase Negative (Negative) Urine WBC (Auto) 0-5 (0-5) /hpf Urine RBC (Auto) 6-10 H (0-2) /hpf U Hyaline Cast (Auto) 3-5 H (0-2) /lpf U Epithel Cells (Auto) 0-2 (0-2) /hpf Urine Bacteria (Auto) None Seen (None Seen) Administered Medications Acetaminophen (Acetaminophen 325 Mg Tab) 650 mg PO Q4H PRN PRN Reason: pain/fever Stop: 07/24/23 23:07 Last Admin: 06/25/23 00:11 Dose: 650 mg Documented By: JCARLOS Escitalopram Oxalate (Escitalopram Oxalate 10 Mg Tab) 10 mg PO HS RODRIGUEZ Stop: 07/24/23 23:34 Last Admin: 06/25/23 00:10 Dose: 10 mg Documented By: JCARLOS Discontinued Medications Sodium Chloride (Nss) 1,000 mls @ 999 mls/hr IV .Q1H1M ONE Stop: 06/24/23 20:40 Last Infusion: 06/24/23 23:08 Dose: Infused Documented By: Admin: 06/24/23 20:13 Dose: 999 mls/hr Documented By: TREV Pantoprazole Sodium 40 mg/ (Syringe) 10 mls @ 5 mls/min IV NOW ONE Stop: 06/24/23 23:17 Last Admin: 06/25/23 00:11 Dose: 5 mls/min Documented By: JCARLOS Ioversol (Optiray 320 100ml) 93 ml IV ONCE ONE Stop: 06/24/23 20:44 Last Admin: 06/24/23 20:44 Dose: 93 ml Documented By: TANJA Ondansetron HCl (Ondansetron Inj 2 Mg/Ml 2 Ml Vial) 4 mg IV NOW STA Stop: 06/24/23 19:46 Last Admin: 06/24/23 20:13 Dose: 4 mg Documented By: [facility] [place] Data Radiologist's Impression: Cervical Spine CT 06/24/23 19:40 Exam(s): CT C SPINE EXAM: CT Cervical Spine Without Intravenous Contrast CLINICAL HISTORY: Reason for exam: fall. TECHNIQUE: Axial computed tomography images of the cervical spine without intravenous contrast. CTDI is 23.19 mGy and DLP is 438.04 mGy-cm. Automated exposure control was utilized for the study. A dose lowering technique was utilized adhering to the principles of ALARA. COMPARISON: 11/04/2021 FINDINGS: Vertebrae: Interval development of subtle right-sided achievable hypertrophic changes since prior exam without focal neural foraminal stenosis at C2-C3 due to a degenerative disc bulge and bony hypertrophy. Postoperative changes ACDF C5-C6 no evidence of hardware complication. C4-C5: Mild bilateral foraminal narrowing secondary to vertebral trophic changes left greater than right. . No acute fracture. Discs/spinal canal/neural foramina: C3-C4 posterior disc osteophyte complex resulting in mild to moderate canal stenosis and moderate to severe bilateral neural foraminal stenosis at Narrowing due to a degenerative disc bulge and bony hypertrophy. C6-C7: Moderate to severe bilateral neural foraminal stenosis at Narrowing with mild central canal stenosis secondary to degenerative changes due to a degenerative disc bulge and bony hypertrophy. C5-C6 mild bilateral neural foraminal stenosis at Narrowing due to a degenerative disc bulge and bony hypertrophy. Soft tissues: Unremarkable. IMPRESSION: Postoperative changes ACDF C5-C6. Cervical spondylopathy as described above relatively unchanged from prior study. When allowing for differences in technique. Electronically signed by: Rickie Gavin MD 06/24/23 21:[address] 06/24/23 19:40 Exam(s): CT HEAD Without Contrast EXAM: CT Head Without Intravenous Contrast CLINICAL HISTORY: Reason for exam: fall. TECHNIQUE: Axial computed tomography images of the head/brain without intravenous contrast. CTDI is 36.67 mGy and DLP is 624.41 mGy-cm. Automated exposure control was utilized for the study. A dose lowering technique was utilized adhering to the principles of ALARA. COMPARISON: 04/08/2020 FINDINGS: Brain: Unremarkable. No hemorrhage. No significant white matter disease. No edema. Ventricles: Unremarkable. No ventriculomegaly. Bones/joints: Unremarkable. No acute fracture. Soft tissues: Unremarkable. Sinuses: Unremarkable as visualized. No acute sinusitis. Mastoid air cells: Unremarkable as visualized. No mastoid effusion. IMPRESSION: Normal head/brain CT. Electronically signed by: Rickie Gavin MD 06/24/23 21:[address] 06/24/23 19:40 Exam(s): CT L SPINE With Contrast IV Amt: 93ML OPTIRAY 320 EXAM: CT Lumbar Spine With Intravenous Contrast CLINICAL HISTORY: Reason for exam: fall. TECHNIQUE: Axial computed tomography images of the lumbar spine with intravenous contrast. CTDI is 10.61 mGy and DLP is 453.86 mGy-cm. Automated exposure control was utilized for the study. A dose lowering technique was utilized adhering to the principles of ALARA. CONTRAST: Patient received 93ML OPTIRAY 320 of IV contrast COMPARISON: No relevant prior studies available. FINDINGS: Vertebrae: Multilevel degenerative changes of the lumbar spine with facet arthropathy resulting in bilateral foraminal narrowing at L1-L2. No acute fracture. Discs/spinal canal/neural foramina: No acute findings. No spinal canal stenosis. Soft tissues: Unremarkable. IMPRESSION: No acute findings in the lumbar spine. Dextroscoliosis and degenerative changes Electronically signed by: Rickie Gavin MD 06/24/23 21:57 PM Abdomen/Pelvis CT 06/24/23 19:45 Exam(s): CT ABDOMEN + PELVIS With Contrast IV Amt: 93ml optiray 320 EXAM: CT Abdomen and Pelvis With Intravenous Contrast CLINICAL HISTORY: Reason for exam: abd pain. TECHNIQUE: Axial computed tomography images of the abdomen and pelvis with intravenous contrast. CTDI is 10.61 mGy and DLP is 453.86 mGy-cm. Automated exposure control was utilized for the study. A dose lowering technique was utilized adhering to the principles of ALARA. CONTRAST: Patient received 93ml optiray 320 of IV contrast COMPARISON: 12/14/2019 FINDINGS: Lung bases: Unremarkable. No mass. No consolidation. ABDOMEN: Liver: 8.2 x 6.1 cm right hepatic lobe cyst. 1.3 cm left hepatic lobe cyst. Gallbladder and bile ducts: See below. Pancreas: Gallbladder is distended. No mass. No ductal dilation. Spleen: Unremarkable. No splenomegaly. Adrenals: Unremarkable. No mass. Kidneys and ureters: 1.2 cm left renal cyst. 1.6 cm right renal cyst. . No hydronephrosis. Stomach and bowel: Diverticulosis without evident diverticulitis . No obstruction. No mucosal thickening. PELVIS: Appendix: No findings to suggest acute appendicitis. Bladder: Unremarkable. No mass. Reproductive: Unremarkable as visualized. ABDOMEN and PELVIS: Intraperitoneal space: Unremarkable. No free air. No significant fluid collection. Bones/joints: No acute fracture. No dislocation. Soft tissues: Unremarkable. Vasculature: Unremarkable. No abdominal aortic aneurysm. Lymph nodes: Unremarkable. No enlarged lymph nodes. IMPRESSION: No acute findings in the abdomen or pelvis. Electronically signed by: Rickie Gavin MD 06/24/23 21:50 PM Discharge Plan Visit Data Chief Complaint: Abdominal Pain Stated Complaint: AB PAIN ED Provider: Rickie Lockhart Discharge Problem: Syncope, Laceration of head, Anemia, Acute hyponatremia Discharge Instructions Interventions: ED Discharge Assessment Last Done: 06/24/23 23:35 Discharge Problem: Syncope Qualifiers: Syncope type: unspecified Qualified Code(s): R55 - Syncope and collapse Laceration of head Qualifiers: Encounter type: initial encounter Location of open wound of head: unspecified part of head Foreign body presence: without foreign body Qualified Code(s): S XA - Laceration without foreign body of unspecified part of head, initial encounter Anemia Qualifiers: Anemia type: unspecified type Qualified Code(s): D64.9 - Anemia, unspecified
[2023-06-24 20:04] LABS: Basophils # (auto) 0.01 K/uL (0.00-0.20); Basophils % (auto) 0.1 %; Eosinophils # (auto) 0.04 K/uL (0.00-0.50); Eosinophils % (auto) 0.4 %; Hematocrit (blood only) 33.7 % (37.0-47.0); Hemoglobin 11.4 g/dl (12.0-16.0); Immature Granulocytes # (auto) 0.05 K/uL (0.01-0.20); Immature Granulocytes % (auto) 0.5 %; Lymphocytes # (auto) 2.21 K/uL (1.20-3.40); Lymphocytes % (auto) 21.3 %; Mean Corpuscular Hemoglobin 31.8 pg (25.0-34.0); Mean Corpuscular Hgb Conc 33.8 g/dL (32.0-36.0); Mean Corpuscular Volume 93.9 fL (80.0-100.0); Mean Platelet Volume 11.6 fL (9.4-12.4); Monocytes # (auto) 0.81 K/uL (0.11-0.59); Monocytes % (auto) 7.8 %; Neutrophils # (auto) 7.28 K/uL (1.40-6.50); Neutrophils % (auto) 69.9 %; Platelet Count 156 K/uL (130-400); RDW Coefficient of Variation 12.4 % (11.5-14.5); RDW Standard Deviation 43.1 fL (36.4-46.3); Red Blood Count 3.59 M/uL (4.20-5.40)
[2023-06-24] MEDS: ONDANSETRON INJ 2 MG/ML 2 ML VIAL IV STA (20:13)
[2023-06-24] MEDS: SODIUM CHLORIDE 0.9% 1,000 ML IV ONE (20:13)
[2023-06-24 20:17] LABS: Albumin Globulin Ratio 1.7 (0.9-2); BUN Creatinine Ratio 36.5 (10-20); Bilirubin,Total 0.8 mg/dl (0.2-1.0); Calcium 10.3 mg/dl (8.6-10.3); Creatinine Clr Calc Pharmacy 44.6 ml/min; Est GFR (African American) 76.1 ml/min; Est GFR (Non-African American) 65.6 ml/min; Globulin 2.4 gm/dl (2.5-4.0); Potassium 3.5 mmol/L (3.5-5.1); Total Protein 6.4 gm/dl (6.0-8.3)
[2023-06-24 20:23] LABS: Troponin I High Sensitivity 12.2 pg/ml (0-14)
[2023-06-24] MEDS: OPTIRAY 320 100ml IV ONE (20:44)
--- NOTE | 2023-06-24 21:23 | CT Scan Report ---
Exam(s): CT HEAD Without Contrast EXAM: CT Head Without Intravenous Contrast CLINICAL HISTORY: Reason for exam: fall. TECHNIQUE: Axial computed tomography images of the head/brain without intravenous contrast. CTDI is 36.67 mGy and DLP is 624.41 mGy-cm. Automated exposure control was utilized for the study. A dose lowering technique was utilized adhering to the principles of ALARA. COMPARISON: 04/08/2020 FINDINGS: Brain: Unremarkable. No hemorrhage. No significant white matter disease. No edema. Ventricles: Unremarkable. No ventriculomegaly. Bones/joints: Unremarkable. No acute fracture. Soft tissues: Unremarkable. Sinuses: Unremarkable as visualized. No acute sinusitis. Mastoid air cells: Unremarkable as visualized. No mastoid effusion. IMPRESSION: Normal head/brain CT. Electronically signed by: Rickie Gavin MD 06/24/23 21:22 PM
--- NOTE | 2023-06-24 21:30 | CT Scan Report ---
Exam(s): CT C SPINE EXAM: CT Cervical Spine Without Intravenous Contrast CLINICAL HISTORY: Reason for exam: fall. TECHNIQUE: Axial computed tomography images of the cervical spine without intravenous contrast. CTDI is 23.19 mGy and DLP is 438.04 mGy-cm. Automated exposure control was utilized for the study. A dose lowering technique was utilized adhering to the principles of ALARA. COMPARISON: 11/04/2021 FINDINGS: Vertebrae: Interval development of subtle right-sided achievable hypertrophic changes since prior exam without focal neural foraminal stenosis at C2-C3 due to a degenerative disc bulge and bony hypertrophy. Postoperative changes ACDF C5-C6 no evidence of hardware complication. C4-C5: Mild bilateral foraminal narrowing secondary to vertebral trophic changes left greater than right. . No acute fracture. Discs/spinal canal/neural foramina: C3-C4 posterior disc osteophyte complex resulting in mild to moderate canal stenosis and moderate to severe bilateral neural foraminal stenosis at Narrowing due to a degenerative disc bulge and bony hypertrophy. C6-C7: Moderate to severe bilateral neural foraminal stenosis at Narrowing with mild central canal stenosis secondary to degenerative changes due to a degenerative disc bulge and bony hypertrophy. C5-C6 mild bilateral neural foraminal stenosis at Narrowing due to a degenerative disc bulge and bony hypertrophy. Soft tissues: Unremarkable. IMPRESSION: Postoperative changes ACDF C5-C6. Cervical spondylopathy as described above relatively unchanged from prior study. When allowing for differences in technique. Electronically signed by: Rickie Gavin MD 06/24/23 21:29 PM
[2023-06-24 21:48] LABS: Appearance Urine Clear (Clear); Bacteria Urine Automated None Seen (None Seen); Bilirubin Urine Negative (Negative); Blood Urine 1+ (Negative); Color Urine Yellow; Epithelial Cell Urine Auto 0-2 /hpf (0-2); Glucose Urine UA Negative (Negative); Ketones Urine Negative (Negative); Leukocyte Esterase Urine Negative (Negative); Nitrite Urine Negative (Negative); Protein Urine Trace (Negative); Specific Gravity Urine 1.028 (1.000-1.030); Urobilinogen Urine Negative (Negative); WBC Urine Automated 0-5 /hpf (0-5)
--- NOTE | 2023-06-24 21:51 | CT Scan Report ---
Exam(s): CT ABDOMEN + PELVIS With Contrast IV Amt: 93ml optiray 320 EXAM: CT Abdomen and Pelvis With Intravenous Contrast CLINICAL HISTORY: Reason for exam: abd pain. TECHNIQUE: Axial computed tomography images of the abdomen and pelvis with intravenous contrast. CTDI is 10.61 mGy and DLP is 453.86 mGy-cm. Automated exposure control was utilized for the study. A dose lowering technique was utilized adhering to the principles of ALARA. CONTRAST: Patient received 93ml optiray 320 of IV contrast COMPARISON: 12/14/2019 FINDINGS: Lung bases: Unremarkable. No mass. No consolidation. ABDOMEN: Liver: 8.2 x 6.1 cm right hepatic lobe cyst. 1.3 cm left hepatic lobe cyst. Gallbladder and bile ducts: See below. Pancreas: Gallbladder is distended. No mass. No ductal dilation. Spleen: Unremarkable. No splenomegaly. Adrenals: Unremarkable. No mass. Kidneys and ureters: 1.2 cm left renal cyst. 1.6 cm right renal cyst. . No hydronephrosis. Stomach and bowel: Diverticulosis without evident diverticulitis . No obstruction. No mucosal thickening. PELVIS: Appendix: No findings to suggest acute appendicitis. Bladder: Unremarkable. No mass. Reproductive: Unremarkable as visualized. ABDOMEN and PELVIS: Intraperitoneal space: Unremarkable. No free air. No significant fluid collection. Bones/joints: No acute fracture. No dislocation. Soft tissues: Unremarkable. Vasculature: Unremarkable. No abdominal aortic aneurysm. Lymph nodes: Unremarkable. No enlarged lymph nodes. IMPRESSION: No acute findings in the abdomen or pelvis. Electronically signed by: Rickie Gavin MD 06/24/23 21:50 PM
--- NOTE | 2023-06-24 21:56 | History & Physical Report ---
Date of Service June 24, 2023 Assessment & Plan (1) Syncope and collapse: Plan: Pt is a 77 yo female with PMH of depression, hx of melanoma, left leg lymphedema, scleroderma, HLD, permanent afib, GERD, and HTN presenting after syncopal episodes at home. Syncope - lab work significant for no leukocytosis, Hgb 11.4 (14 in 03/2023), CMP WNL - EKG upon admission showed atrial fibrillation w/o RVR; pt recently had heart monitor d/t bradycardia but she is unaware of the results - head CT neg - suspect pt's symptoms related to hypovolemic/hypoglycemia d/t lack of PO intake in conjunction with mild anemia from recent blood loss - continue to trend CBC for stability - bilateral carotid dopplers to r/o significant stenosis - admit to med/tele to ensure no significant arrhythmias Abdominal pain - lab work significant for lipase 16 - CTAP neg for acute findings - suspect related to pt's chronic constipation and GERD exacerbation - will start 40 mg IV protonix daily, miralax daily upon admission; pt may be nefit from increase in home PPI dose and more aggressive laxative regimen upon discharge Permanent afib - EKG showing afib w/o RVR on admission - no longer on home metoprolol d/t bradycardia - will hold eliquis on admission d/t Hgb drop in the setting of acute bleeding from varicose vein procedure; would resume eliquis tomorrow if Hgb stable HTN - continue home telmisartan Depression - continue home lexapro 10 mg Diet: regular VTE ppx: deferred on admission Code: DNR/DNI Dispo: admit to med/tele (2) Abdominal pain: (3) Depression: (4) Hypertension: (5) Permanent atrial fibrillation: History of Present Illness Chief Complaint: syncope Primary Care Provider: Kristina Pardo DO Pt is a 77 yo female with PMH of depression, hx of melanoma, left leg lymphedema, scleroderma, HLD, permanent afib, GERD, and HTN presenting after syncopal episodes at home. Pt notes that she had left leg varicose vein surgery yesterday performed at [facility]. She had presented to the ER earlier today d/t bleeding from her left leg surgical site. Glue was applied to a bleeding spot which stopped the bleeding. She was discharged home. She went home and took a nap. After her nap, she walked her dog for about 1-1.5 miles. When she got home, she started to feel dizzy. She has had similar episodes to this in the past where she has needed to eat/drink and lay down in order to get the episodes to pass. However, she did not eat something during this episode because wanted to feed her dog. As she was doing this, she passed out and fell. She hit her head on the floor. She woke up on the floor and attempted to get up when she blacked out again. She tried to get to the couch/living room to call 911 when she passed out a 3rd time. Between the episodes, she felt hot, sweaty, nauseous, and had some abdominal pain. She was finally able to call for an ambulance. Pt does note that during past episodes of dizziness like this she had used her 's glucometer to measure her BS and it had been low. Pt has only eaten oatmeal, crackers, and grapes today. She feels as though these syncopal episodes could have been avoided if she would have eaten more. Pt notes that her home metoprolol was recently stopped d/t low HR. She had a holter monitor but has not heard of the results yet. She denies hx of NH or stroke. No heart conditions aside from permanent afib. She does have a hx of afib for which she takes eliquis. Her last dose was Wednesday morning. In the ER, the pt was given 1L NS and 4 mg zofran x1. Allergies Allergy/AdvReac Type Severity Reaction Status Date / Time adhesive tape Allergy Mild itchy rash Verified 06/24/23 22:45 cyclosporine [From Restasis] Allergy Mild bah eyes Verified 06/24/23 22:45 doxycycline Allergy Mild Nausea Verified 06/24/23 22:45 hydrocodone Allergy Mild pain, rash Verified 06/24/23 22:45 metaxalone [From Skelaxin] Allergy Mild nausea, Verified 06/24/23 22:45 dizzy Sulfa (Sulfonamide Allergy Mild Hives Verified 06/24/23 22:45 Antibiotics) metronidazole [From Flagyl] AdvReac Mild Gastrointestinal Verified 06/24/23 22:45 Upset Home Medications Medication Instructions Recorded Confirmed Type escitalopram oxalate 10 mg tablet 10 mg PO HS #0 tabs 09/27/16 06/24/23 History (Lexapro) calcium carbonate 500 mg-vitamin 1 tab PO QPM #0 tabs 12/20/18 06/24/23 History D3 5 mcg (200 unit) tablet (Calcium 500 + D) omeprazole magnesium 20 mg 20 mg PO QAM 04/18/20 06/24/23 History tablet,delayed release (Prilosec OTC) acetaminophen 650 mg 1,300 mg PO TID #0 caps 09/12/20 06/24/23 History tablet,extended release cholecalciferol (vitamin D3) 50 0 mcg PO QPM 10/22/21 06/24/23 History mcg (2,000 unit) capsule telmisartan 40 mg tablet 40 mg PO DAILY #30 tabs 04/27/22 06/24/23 Rx potassium chloride 10 mEq 10 meq PO DAILY #30 tabs 11/18/22 06/24/23 Rx tablet,extended release(part/cryst) (Klor-Con M) azelastine 137 mcg (0.1 %) nasal 1 spray intranasal DAILY PRN 03/24/23 06/24/23 Rx spray aerosol Allergy Symptoms #30 mL furosemide 20 mg tablet 20 mg PO DIRECTED PRN Edema 03/24/23 06/24/23 History apixaban 5 mg tablet (Eliquis) 5 mg PO .HOLD 06/24/23 06/24/23 History diclofenac sodium 1 % topical gel 0 g topical DIRECTED PRN Pain 06/24/23 06/24/23 History Past Med/Surg History Medical History Depression History of melanoma Seasonal allergies History of skin cancer History of COVID-19 05/2021- sore throat, cough, congestion, prater; resolved PONV (postoperative nausea and vomiting) Diverticulosis Lumbar canal stenosis History of colon polyps Lymphedema left leg Scleroderma dx years ago but currently asymptomatic Hyperlipidemia Anxiety Permanent atrial fibrillation dx 2016 - follow with Dr Lopez- last visit 1 mo ago- on eliquis daily GERD (gastroesophageal reflux disease) Hypertension Surgical History History of left cataract surgery Hx of colonoscopy History of Mohs micrographic surgery for skin cancer History of tubal ligation History of total abdominal hysterectomy History of carpal tunnel surgery left Status post spinal disc removal C2-C3 Family History Son Alcoholism Mother Family history of CABG Osteoporosis Vascular dementia Myocardial infarction Father Coronary heart disease Hypertension Peripheral vascular disease Brother Coronary heart disease Denies family history of Ovarian cancer Prostate cancer Breast cancer Colorectal cancer Social History Smoking Status: Never smoker Second Hand Exposure: No; Do You Dip or Chew Tobacco: No; Hx Alcohol Use: No Hx Substance Use: No Preferred Language: Turkish Communication Ability: Effective Visual Impairment: No Limitations Hearing Ability: Normal Platform Attendant Required: No Beliefs That Will Affect Care: None marital status: / Current Living Situation: Alone current occupational status: retired current occupation: former teach How many Children do You have Comment: 1 son - he is Feels Safe at Home: Yes Dental Care, Regularly: Yes Physical Activity Frequency: 3-4 Times per Week Seatbelt Use: always Sunscreen Use: Yes Assistive Devices: None Review of Systems Review of Systems: As per HPI Physical Exam Constitutional: NAD, vitals WNL. Respiratory: CTA bilaterally. Non labored breathing. No rhonchi, wheezing, or crackles. Cardiovascular: Irregular rhythm, regular rate. No murmurs noted. Minimal left LE edema. Gastrointestinal (Abdomen): Minimally tender in epigastric region, nondistended, +BS. No masses noted. Skin: No rashes or skin lesions noted. Left lower leg wrapped s/p left vein ablation Neurologic: Sensation grossly intact. No FND appreciated. Psychiatric: Speech of normal pace and content. Mood and affect congruent. Results & Data Results & Data Vital Signs (Past 12 Hours) Vital Signs Temp Pulse Resp BP Pulse Ox O2 Del Method 06/24/23 20:00 79 20 141/79 H 98 Room Air 06/24/23 19:40 78 20 94 Room Air 06/24/23 19:31 78 16 161/73 H 100 Room Air 06/24/23 19:24 81 06/24/23 19:24 36.4 C L 86 20 108/72 98 Room Air Supervising Physician Co-Signing Physician Notes Attending addendum: I have physically seen this patient, have supervised the medical residents a ctivities, and agree with the H&P unless as otherwise noted. Assessment and Plan: Syncope- Patient with 3 episodes today The patient will be admitted to telemetry for serial cardiac enzymes, serial EKG's, cardiac rhythm monitoring and a 2-D echocardiogram with Dopplers. EKG with rate controlled atrial fibrillation History of heart monitor placement for assessment of bradycardia CT head negative Likely contributing factors are hypovolemia and hypoglycemia associate with decreased oral intake No focal deficits to suggest stroke Bilateral carotid Dopplers Recent varicose vein procedure- Blood loss anemia that is mild Temporarily hold Eliquis Permanent A-fib/hypertension- On telmisartan with hold parameters Temporarily hold Eliquis as noted above, and restart if hemoglobin stable in the a.m. Remaining orders and notations as noted Resident Activity Tracking Resident Involvement: Resident Care Provided Care Provided: Adult Hospital Medicine (4) Hypertension Hypertension type: essential hypertension Qualified Code(s): I10 - Essential (primary) hypertension
--- NOTE | 2023-06-24 21:58 | CT Scan Report ---
Exam(s): CT L SPINE With Contrast IV Amt: 93ML OPTIRAY 320 EXAM: CT Lumbar Spine With Intravenous Contrast CLINICAL HISTORY: Reason for exam: fall. TECHNIQUE: Axial computed tomography images of the lumbar spine with intravenous contrast. CTDI is 10.61 mGy and DLP is 453.86 mGy-cm. Automated exposure control was utilized for the study. A dose lowering technique was utilized adhering to the principles of ALARA. CONTRAST: Patient received 93ML OPTIRAY 320 of IV contrast COMPARISON: No relevant prior studies available. FINDINGS: Vertebrae: Multilevel degenerative changes of the lumbar spine with facet arthropathy resulting in bilateral foraminal narrowing at L1-L2. No acute fracture. Discs/spinal canal/neural foramina: No acute findings. No spinal canal stenosis. Soft tissues: Unremarkable. IMPRESSION: No acute findings in the lumbar spine. Dextroscoliosis and degenerative changes Electronically signed by: Rickie Gavin MD 06/24/23 21:57 PM
[2023-06-24] MEDS ORDERED: ONDANSETRON INJ 2 MG/ML 2 ML VIAL IV PRN (23:08)
[2023-06-24] MEDS ORDERED: MELATONIN 3 MG TAB PO PRN (23:08)
[2023-06-25] MEDS: ESCITALOPRAM OXALATE 10 MG TAB PO SCH (00:10)
[2023-06-25] MEDS: ACETAMINOPHEN 325 MG TAB PO PRN (00:11)
[2023-06-25] MEDS: PANTOprazole 40 MG in SYRINGE 0 ML IV ONE (00:11)
[2023-06-25 06:35] LABS: Hematocrit (blood only) 30.6 % (37.0-47.0); Hemoglobin 10.3 g/dl (12.0-16.0); Mean Corpuscular Hemoglobin 32.2 pg (25.0-34.0); Mean Corpuscular Hgb Conc 33.7 g/dL (32.0-36.0); Mean Corpuscular Volume 95.6 fL (80.0-100.0); Mean Platelet Volume 11.1 fL (9.4-12.4); Platelet Count 133 K/uL (130-400); RDW Coefficient of Variation 12.7 % (11.5-14.5); RDW Standard Deviation 44.6 fL (36.4-46.3); White Blood Count 8.16 K/ul (4.8-10.8)
[2023-06-25 07:08] LABS: BUN Creatinine Ratio 31.6 (10-20); Calcium 9.3 mg/dl (8.6-10.3); Creatinine Clr Calc Pharmacy 66.6 ml/min; Est GFR (African American) 102.9 ml/min; Est GFR (Non-African American) 88.8 ml/min; Potassium 3.9 mmol/L (3.5-5.1)
--- NOTE | 2023-06-25 07:42 | XRay Report ---
XR chest 1V portable CLINICAL HISTORY: Syncope. COMPARISON STUDY: Chest radiograph April 08, 2020. FINDINGS: Postoperative findings within the cervical spine are incidentally noted. Lung volumes are n ormal. Lungs are clear. There is no pneumothorax or pleural effusion. Cardiomegaly is unchanged. Medi astinal contours are normal. There is no evidence for pulmonary edema. IMPRESSION: No acute cardiopulmonary findings. No change in appearance of the chest. ACT 112: Negative or not required by law. Electronically signed by: Randall Juarez M.D. 06/25/2023 7:40 AM
[2023-06-25] MEDS: LOSARTAN POTASSIUM 50 MG TAB PO SCH (09:50)
[2023-06-25] MEDS: POLYETHYLENE (MIRALAX) 17 GM PACK PO SCH (09:51)
[2023-06-25] MEDS: POTASSIUM CHLORIDE 10 MEQ TABCR PO SCH (09:51)
--- NOTE | 2023-06-25 10:27 | Ultrasound Report ---
CAROTID ARTERY ULTRASOUND CLINICAL HISTORY: Syncope. COMPARISON STUDY: None. TECHNIQUE: Real-time, grayscale, and color Doppler sonography of the carotid and vertebral arteries w as performed. Images were viewed in the transverse and longitudinal planes. FINDINGS: There is mild atherosclerotic plaque. Velocity measurements are listed below. COMMON CAROTID PEAK SYSTOLIC VELOCITY (CM/S): RIGHT 64 LEFT 69 ICA PEAK SYSTOLIC VELOCITY (CM/S): RIGHT 54 LEFT 108 Systolic ratios between the internal to common carotid arteries are normal. Antegrade flow is seen in the vertebral arteries. The external carotid arteries are patent. IMPRESSION: No evidence for a hemodynamically significant stenosis. ACT 112: Negative or not required by law. Electronically signed by: Randall Juarez M.D. 06/25/2023 10:26 AM
[2023-06-25] MEDS ORDERED: PANTOprazole 40 MG in SYRINGE 0 ML IV SCH (11:00)
--- NOTE | 2023-06-25 12:01 | Urology Consultation ---
Date of Consultation June 25, 2023 Assessment & Plan (1) Microscopic hematuria: Plan 77yo/F who recently underwent left leg varicose vein surgery at [facility] admitted after syncopal episodes at home - Urology consulted for hematuria. Patient is afebrile and hemodynamically stable. Labs today (06/25/23): WBC 8.16, hemoglobin 10.3, creatinine 0.57. Urinalysis on admit with 1+ blood, 6-10RBC. CT A/P was unremarkable. No acute intervention warranted. Patient denies gross hematuria or UTI symptoms. Reports urine is clear yellow. She is voiding spontaneously and feels she is emptying her bladder. We discussed microscopic hematuria in detail. We discussed that there can be several benign causes, however microscopic hematuria is never considered normal. We reviewed the work-up for hematuria including cystoscopy which can be completed as an outpatient. She is agreeable. Will arrange outpatient follow-up to complete the hematuria workup. Continue medical management per primary team. Urology will sign off. Please call with any further questions, concerns, or changes in patient status. History of Present Illness Attending Physician: Oswaldo Mccartney MD History of Present Illness 77-year-old female with PMH of depression, hx of melanoma, left leg lymphedema, scleroderma, HLD, Afib on Eliquis, GERD, and HTN who presented to the ED after syncopal episodes at home. Patient recently underwent left leg varicose vein surgery at [facility]. She initially presented to the ED on 06/23 with bleeding from her left leg surgical site. A bandage was placed which stopped the bleeding when she was discharged home. She returned to the ED later that same day due to syncopal episodes at home. In the ED, she was given IVF and Zofran. Labs showing no leukocytosis, hemoglobin 11.4, creatinine 0.85. Urinalysis without signs of infection. Patient admitted to medicine service. Urology was consulted for hematuria. 06/24/2023 UA- 1+ blood, 6-10RBC, negative nitrite, negative bacteria, negative LE 06/24/2023 CT abdomen pelvis- No acute findings. Bilateral renal cysts. No hydronephrosis. Unremarkable bladder. Patient examined at bedside in the ED. Awake, resting bed on arrival. No acute distress. Denies gross hematuria. Reports her urine was clear yellow this morning. She was told she has microscopic blood on urinalysis. She does report noticing blood in her underwear, but also questions if this was from hemorrhoids. Denies dysuria. Denies urinary urgency or frequency. Reports constipation. Denies flank or suprapubic pain. Feels she is emptying her bladder well. Denies urinary symptoms or incontinence at baseline. Denies fever, chills, nausea, vomiting. She reports a hx of microscopic hematuria but has never had a work-up with urology. Denies prior urological history and has never seen a urologist. Allergies Allergy/AdvReac Type Severity Reaction Status Date / Time adhesive tape Allergy Mild itchy rash Verified 06/24/23 22:45 cyclosporine [From Restasis] Allergy Mild bah eyes Verified 06/24/23 22:45 doxycycline Allergy Mild Nausea Verified 06/24/23 22:45 hydrocodone Allergy Mild pain, rash Verified 06/24/23 22:45 metaxalone [From Skelaxin] Allergy Mild nausea, Verified 06/24/23 22:45 dizzy Sulfa (Sulfonamide Allergy Mild Hives Verified 06/24/23 22:45 Antibiotics) metronidazole [From Flagyl] AdvReac Mild Gastrointestinal Verified 06/24/23 22:45 Upset Home Medications Medication Instructions Recorded Confirmed Type escitalopram oxalate 10 mg tablet 10 mg PO HS #0 tabs 09/27/16 06/24/23 History (Lexapro) calcium carbonate 500 mg-vitamin 1 tab PO QPM #0 tabs 12/20/18 06/24/23 History D3 5 mcg (200 unit) tablet (Calcium 500 + D) omeprazole magnesium 20 mg 20 mg PO QAM 04/18/20 06/24/23 History tablet,delayed release (Prilosec OTC) acetaminophen 650 mg 1,300 mg PO TID #0 caps 09/12/20 06/24/23 History tablet,extended release cholecalciferol (vitamin D3) 50 0 mcg PO QPM 10/22/21 06/24/23 History mcg (2,000 unit) capsule telmisartan 40 mg tablet 40 mg PO DAILY #30 tabs 04/27/22 06/24/23 Rx potassium chloride 10 mEq 10 meq PO DAILY #30 tabs 11/18/22 06/24/23 Rx tablet,extended release(part/cryst) (Klor-Con M) azelastine 137 mcg (0.1 %) nasal 1 spray intranasal DAILY PRN 03/24/23 06/24/23 Rx spray aerosol Allergy Symptoms #30 mL furosemide 20 mg tablet 20 mg PO DIRECTED PRN Edema 03/24/23 06/24/23 History apixaban 5 mg tablet (Eliquis) 5 mg PO .HOLD 06/24/23 06/24/23 History diclofenac sodium 1 % topical gel 0 g topical DIRECTED PRN Pain 06/24/23 06/24/23 History Patient History Medical History Depression History of melanoma Seasonal allergies History of skin cancer History of COVID-19 05/2021- sore throat, cough, congestion, prater; resolved PONV (postoperative nausea and vomiting) Diverticulosis Lumbar canal stenosis History of colon polyps Lymphedema left leg Scleroderma dx years ago but currently asymptomatic Hyperlipidemia Anxiety Permanent atrial fibrillation dx 2015 - follow with Dr Lopez- last visit 1 mo ago- on eliquis daily GERD (gastroesophageal reflux disease) Hypertension Surgical History History of left cataract surgery Hx of colonoscopy History of Mohs micrographic surgery for skin cancer History of tubal ligation History of total abdominal hysterectomy History of carpal tunnel surgery left Status post spinal disc removal C2-C3 Family History Son Alcoholism Mother Family history of CABG Osteoporosis Vascular dementia Myocardial infarction Father Coronary heart disease Hypertension Peripheral vascular disease Brother Coronary heart disease Denies family history of Ovarian cancer Prostate cancer Breast cancer Colorectal cancer Social History Smoking Status: Never smoker Second Hand Exposure: No; Do You Dip or Chew Tobacco: No; Hx Alcohol Use: No Hx Substance Use: No Preferred Language: Andorran Communication Ability: Effective Visual Impairment: No Limitations Hearing Ability: Normal Coil Former Required: No Beliefs That Will Affect Care: None marital status: / Current Living Situation: Alone current occupational status: retired current occupation: former teach How many Children do You have Comment: 1 son - he is Other Information That Helps Us Care for You: No Feels Safe at Home: Yes Safety Concerns: Feels Safe At This Time Dental Care, Regularly: Yes Physical Activity Frequency: 3-4 Times per Week Seatbelt Use: always Sunscreen Use: Yes Assistive Devices: None Review of Systems Review of Systems: All systems reviewed & are unremarkable except as noted in HPI & below Physical Exam Constitutional: no acute distress Respiratory: no respiratory distress and no labored breathing Musculoskeletal: Head/Neck/Chest: normocephalic Skin: No visible rashes or lesions to exposed skin areas Neurologic: moves all extremities and awake Psychiatric: A+Ox3, euthymic affect Results & Data Vital Signs (Past 12 Hours) Vital Signs Temp Pulse Pulse Resp BP BP Pulse Ox 06/25/23 07:00 79 18 145/72 H 98 06/25/23 06:39 74 16 163/87 H 94 06/25/23 03:46 82 15 151/98 H 94 06/25/23 03:00 76 14 140/84 92 06/25/23 02:06 36.9 C 68 17 140/84 97 06/24/23 23:30 72 21 146/82 H 98 06/24/23 23:21 77 O2 Del Method 06/25/23 07:00 Room Air 06/25/23 06:39 Room Air 06/25/23 03:46 Room Air 06/25/23 03:00 Room Air 06/25/23 02:06 Room Air 06/24/23 23:30 Room Air 06/24/23 23:21 PG Care Time/CCT Total # of Minutes Spent Total Time Spent with Patient: Total time spent is greater than 50% in coordination of care (as documented) at patient's floor/unit and/or counseling patient: Coding Level of Care Code 74886 INT INP/OBS CARE 2/55MIN Diagnoses Microscopic hematuria R31.29
--- NOTE | 2023-06-25 13:45 | Discharge Summary ---
Date of Service June 25, 2023 Admission HPI Per Admitting Provider Pt is a 77 yo female with PMH of depression, hx of melanoma, left leg lymphedema, scleroderma, HLD, permanent afib, GERD, and HTN presenting after syncopal episodes at home. Pt notes that she had left leg varicose vein surgery yesterday performed at [facility]. She had presented to the ER earlier today d/t bleeding from her left leg surgical site. Glue was applied to a bleeding spot which stopped the bleeding. She was discharged home. She went home and took a nap. After her nap, she walked her dog for about 1-1.5 miles. When she got home, she started to feel dizzy. She has had similar episodes to this in the past where she has needed to eat/drink and lay down in order to get the episodes to pass. However, she did not eat something during this episode because wanted to feed her dog. As she was doing this, she passed out and fell. She hit her head on the floor. She woke up on the floor and attempted to get up when she blacked out again. She tried to get to the couch/living room to call 911 when she passed out a 3rd time. Between the episodes, she felt hot, sweaty, nauseous, and had some abdominal pain. She was finally able to call for an ambulance. Pt does note that during past episodes of dizziness like this she had used her 's glucometer to measure her BS and it had been low. Pt has only eaten oatmeal, crackers, and grapes today. She feels as though these syncopal episodes could have been avoided if she would have eaten more. Pt notes that her home metoprolol was recently stopped d/t low HR. She had a holter monitor but has not heard of the results yet. She denies hx of CO or stroke. No heart conditions aside from permanent afib. She does have a hx of afib for which she takes eliquis. Her last dose was Wednesday morning. In the ER, the pt was given 1L NS and 4 mg zofran x1. Principal Diagnosis Syncope, microscopic hematuria Discharge Exam The patient is awake, alert and oriented 3, well developed and well nourished, normocephalic and atraumatic, lying in bed and in no acute distress. HEENT--PERRL, EOMI, mucous membranes and oropharynx mildly dry Neck--supple. No JVD. No bruits. Thyroid normal, trachea midline, no adenopathy. Heart--normal S1 and S2. No murmurs, rubs or gallops. Lungs--clear bilaterally, no respiratory distress, no accessory muscle use. Abdomen--normal bowel sounds and soft. Extremities--no cyanosis or clubbing. No edema. Dermatologic--normal skin turgor, normal color, no abnormal lymph nodes, no rash. Neurologic--cranial nerves II through XII grossly intact. Rheumatologic--normal range of motion. Psychiatric--normal affect. Discharge Data Allergies Allergy/AdvReac Type Severity Reaction Status Date / Time adhesive tape Allergy Mild itchy rash Verified 06/24/23 22:45 cyclosporine [From Restasis] Allergy Mild bah eyes Verified 06/24/23 22:45 doxycycline Allergy Mild Nausea Verified 06/24/23 22:45 hydrocodone Allergy Mild pain, rash Verified 06/24/23 22:45 metaxalone [From Skelaxin] Allergy Mild nausea, Verified 06/24/23 22:45 dizzy Sulfa (Sulfonamide Allergy Mild Hives Verified 06/24/23 22:45 Antibiotics) metronidazole [From Flagyl] AdvReac Mild Gastrointestinal Verified 06/24/23 22:45 Upset Consultations 06/24/23 21:44 ED Decision to Admit Stat 06/25/23 07:21 Consult Urology Routine Ordered Studies 06/24/23 19:40 CT cervical spine wo con Stat CT head/brain wo con Stat CT lumbar spine w con Stat 06/24/23 19:45 CT Abd and Pelvis [CT abd pelvis IV con only] Stat 06/25/23 US carotid doppler BI Routine Hospital Course (1) Syncope and collapse: Patient admitted to the hospital on account of syncope. This she attributed to the fact that she overstressed herself, while walking her dog for more than a mile. Discussed with due to dehydration or hypoglycemia, which by the patient's on admission occasionally happens whenever she does not eat. No orthostatic blood pressure changes in the hospital Patient expressed willingness to be discharged no more syncopal episodes in the hospital. (2) Permanent atrial fibrillation: Rate is well-controlled On Eliquis at home (3) History of melanoma: (4) Microscopic hematuria: Patient noticed some blood in her underwear Evaluated by urology, deemed to be microscopic hematuria. Patient denies any urinary symptoms. Active follow-up with urology outpatient. Plan Discharge home Total Time Total Time Spent Total Time Spent (In Minutes): 35 Discharge Plan Discharge Items Patient Disposition: Home - Self-Care Reason For Visit: SYNCOPE Discharge Diagnosis: Syncope Activity: Resume your previous activity Non-emergency contact: Primary Care Provider and Urologist Call non-emergency contact if: you have any medication questions Follow-up/Referrals: Kristina Pardo DO [Primary Care Provider] - Diet: Regular Addtl Attending Provider Instructions: Please make appointment follow-up with urology outpatient to investigate blood in urine Pending Studies at Discharge: No Stand-Alone Forms: My URX, Smoking Cessation Medications and DC Order Prescriptions: Continued cholecalciferol (vitamin D3) 50 mcg (2,000 unit) capsule 0 mcg PO QPM escitalopram oxalate [Lexapro] 10 mg Tablet 10 mg PO HS Qty: 0 calcium carbonate-vitamin D3 [Calcium 500 + D] 500 mg(1,250mg) -200 unit tablet 1 tab PO QPM Qty: 0 acetaminophen 650 mg tablet extended release 1,300 mg PO TID Qty: 0 telmisartan 40 mg tablet 40 mg PO DAILY Qty: 30 2RF potassium chloride [Klor-Con M10] 10 mEq tablet,ER particles/crystals 10 meq PO DAILY Qty: 30 2RF furosemide 20 mg tablet 20 mg PO DIRECTED PRN (Reason: Edema) Rx Instructions: Take 1 tab 1-2 days per week prn. azelastine 137 mcg (0.1 %) aerosol,spray 1 spray intranasal DAILY PRN (Reason: Allergy Symptoms) Qty: 30 5RF omeprazole magnesium [Prilosec OTC] 20 mg tablet,delayed release (DR/EC) 20 mg PO QAM diclofenac sodium 1 % gel 0 g topical DIRECTED PRN (Reason: Pain) Eliquis 5 mg tablet 5 mg PO .HOLD Rx Instructions: TAKE 1 TABLET BY MOUTH TWICE DAILY Discharge Orders: Discharge Order (Routine); Ordered 06/25/23 Ordered By: Oswaldo Mccartney Admission Data Admit Date/Time: 06/24/23 23:08 Attending Provider: Oswaldo Mccartney Admit Provider: Daiana Pérez Primary Care Provider: Kristina Pardo Other Providers: Brando Mauricio; Thony Ramirez Other Interventions: Discharge Summary Assessment (RN) Last Done: 06/25/23 12:13 Coding Level of Care Code 00504 INP/OBS DISCH >30 MIN Diagnoses Syncope and collapse R55 Permanent atrial fibrillation I48.21 History of melanoma Z85.820 Microscopic hematuria R31.29 Time Spent (min) 35
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
--- NOTE | 2023-06-26 05:53 | Electrocardiogram Report ---
Test Reason : Blood Pressure : / mmHG Vent. Rate : 074 BPM Atrial Rate : 000 BPM P-R Int : 000 ms QRS Dur : 100 ms QT Int : 386 ms P-R-T Axes : 000 -19 056 degrees QTc Int : 428 ms Atrial fibrillation with premature ventricular or aberrantly conducted complexes Incomplete right bundle branch block Anteroseptal infarct (cited on or before 14-DEC-2019) Abnormal ECG Confirmed by Thony Tuttle ([id number] on 06/26/2023 5:53:16 AM Referred By: REFERRED SELF Confirmed By:Bo Tuttle
--- NOTE | 2023-06-26 20:24 | Billing Data ---
Date of Service June 26, 2023 Coding Level of Care Code 11388 INT INP/OBS CARE
== END 2023-06-25 12:13 | disposition home or self-care (01) ==
LOC: ED 19:08 → EDINP 19:08 → SUATTDRO 23:08 → EDINP 23:35

== ENCOUNTER 2023-06-29 13:47 | Inpatient (IN) ==
--- NOTE | 2023-06-29 14:31 | Emergency Department Note ---
History of Present Illness General Chief complaint: Dizziness Stated complaint: DIZZINESS,PASSED OUT MUL.TIMES, FALL Time Seen by Provider: 06/29/23 14:07 History of Present Illness Provider complaint: Near syncope Onset (ago): day(s) 5 69-year-old female presents emergency department for feelings of near syncope. Patient states she had a near syncopal episode today after she walked her dog. Patient states she felt like she was going to pass out but did not lose consciousness. Patient states she lowered herself to the ground and measured her heart rate and pulse ox and found that her heart rate was in the 20s. She followed up with her primary care doctor today who referred her to the emergency department. Patient reports no headache. No chest pain or difficulty breathing. Patient is on Eliquis. No melena or hematochezia. Patient states she was recently admitted for similar episode last week and was discharged home. She states she is supposed to have an outpatient stress test with Dr. Lopez but that has not been scheduled yet. Home Medications Medication Instructions Recorded Confirmed Type escitalopram oxalate 10 mg tablet 10 mg PO HS #0 tabs 09/27/16 06/28/23 History (Lexapro) calcium carbonate 500 mg-vitamin 1 tab PO QPM #0 tabs 12/20/18 06/28/23 History D3 5 mcg (200 unit) tablet (Calcium 500 + D) omeprazole magnesium 20 mg 20 mg PO QAM 04/18/20 06/28/23 History tablet,delayed release (Prilosec OTC) acetaminophen 650 mg 1,300 mg PO TID #0 caps 09/12/20 06/28/23 History tablet,extended release cholecalciferol (vitamin D3) 50 0 mcg PO QPM 10/22/21 06/28/23 History mcg (2,000 unit) capsule telmisartan 40 mg tablet 40 mg PO DAILY #30 tabs 04/27/22 06/28/23 Rx potassium chloride 10 mEq 10 meq PO DAILY #30 tabs 11/18/22 06/28/23 Rx tablet,extended release(part/cryst) (Klor-Con M) azelastine 137 mcg (0.1 %) nasal 1 spray intranasal DAILY PRN 03/24/23 06/28/23 Rx spray aerosol Allergy Symptoms #30 mL furosemide 20 mg tablet 20 mg PO DIRECTED PRN Edema 03/24/23 06/28/23 History apixaban 5 mg tablet (Eliquis) 5 mg PO .HOLD 06/24/23 06/28/23 History diclofenac sodium 1 % topical gel 0 g topical DIRECTED PRN Pain 06/24/23 06/28/23 History Allergies Allergy/AdvReac Type Severity Reaction Status Date / Time adhesive tape Allergy Mild itchy rash Verified 06/24/23 22:45 cyclosporine [From Restasis] Allergy Mild bah eyes Verified 06/24/23 22:45 doxycycline Allergy Mild Nausea Verified 06/24/23 22:45 hydrocodone Allergy Mild pain, rash Verified 06/24/23 22:45 metaxalone [From Skelaxin] Allergy Mild nausea, Verified 06/24/23 22:45 dizzy Sulfa (Sulfonamide Allergy Mild Hives Verified 06/24/23 22:45 Antibiotics) metronidazole [From Flagyl] AdvReac Mild Gastrointestinal Verified 06/24/23 22:45 Upset Past Med/Surg History Medical History Depression History of melanoma Seasonal allergies History of skin cancer History of COVID-19 05/2021- sore throat, cough, congestion, prater; resolved PONV (postoperative nausea and vomiting) Diverticulosis Lumbar canal stenosis History of colon polyps Lymphedema left leg Scleroderma dx years ago but currently asymptomatic Hyperlipidemia Anxiety Permanent atrial fibrillation dx 2016 - follow with Dr Lopez- last visit 1 mo ago- on eliquis daily GERD (gastroesophageal reflux disease) Hypertension Surgical History History of left cataract surgery Hx of colonoscopy History of Mohs micrographic surgery for skin cancer History of tubal ligation History of total abdominal hysterectomy History of carpal tunnel surgery left Status post spinal disc removal C2-C3 Family History Son , age 48 from influenza Alcoholism Mother Family history of CABG Osteoporosis Vascular dementia Myocardial infarction Father Coronary heart disease Hypertension Peripheral vascular disease Brother Coronary heart disease Denies family history of Ovarian cancer Prostate cancer Breast cancer Colorectal cancer Social History Smoking Status: Never smoker Second Hand Exposure: No; Do You Dip or Chew Tobacco: No; Hx Alcohol Use: No Hx Substance Use: No Preferred Language: Romansh Communication Ability: Effective Visual Impairment: No Limitations Hearing Ability: Normal Manufacturing Inspector Required: No Beliefs That Will Affect Care: None marital status: / Current Living Situation: Alone current occupational status: retired current occupation: former teach How many Children do You have Comment: 1 son - he is Feels Safe at Home: Yes Dental Care, Regularly: Yes Physical Activity Frequency: 3-4 Times per Week Seatbelt Use: always Sunscreen Use: Yes Assistive Devices: None Physical Exam Vital Signs Vital Signs - 24 hr 06/29/23 13:54 06/29/23 14:35 06/29/23 16:00 Temperature 36.8 C Temperature Source Temporal Artery Scan Pulse Rate 81 Pulse Rate [Apical] 79 72 Pulse Rhythm Regular Pulse Rhythm [Apical] Irregular Pulse Strength [Apical] Normal Respiratory Rate 20 18 18 Respiratory Effort / Characteristics Non-Labored Spontaneous Non-Labored Spontaneous Non-Labored Spontaneous Respiratory Depth Normal Normal Normal Respiratory Pattern Regular Blood Pressure 146/80 H Blood Pressure [Left Arm] 130/88 130/88 Blood Pressure Mean 102 Blood Pressure Mean [Left Arm] 102 102 Blood Pressure Position [Left Arm] Sitting Pulse Oximetry 97 95 99 Oxygen Delivery Method Room Air Room Air Sepsis Recent Fever Within 48 Hours No Sepsis New/Unexplained Change in Mental Status No Sepsis Action Taken by Nursing No Action Required GENERAL: appears well-developed. He is active. HENT: Exam performed. 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 -Head: No signs of injury. -Right Ear: Tympanic membrane normal. No mastoid tenderness. No hemotympanum. -Left Ear: Tympanic membrane normal. No mastoid tenderness. No hemotympanum. -Nose: No nasal discharge. -Mouth/Throat: Mucous membranes are moist. No dental caries. No tonsillar exudate present. Oropharynx is clear. Pharynx is normal. EYES: Conjunctivae and EOM are normal. Pupils are equal, round, and reactive to light. Right eye exhibits no discharge. Left eye exhibits no discharge. NECK: Normal range of motion. Neck supple. No rigidity. CV: Normal rate, irregular rhythm, S1 normal and S2 normal. PULM/CHEST: Effort normal. No respiratory distress. No nasal flaring or stridor. No wheezes, rales, or rhonchi bilaterally -Chest Wall: no retractions. ABD: Bowel sounds are normal. He has no distension. No mass is present. There is no tenderness. There is no rebound and no guarding. There is no hepatosplenomegaly. No hernias are noted. MUSC/SKEL: Normal range of motion. LYMPH: No cervical adenopathy. NEURO: No cranial nerve deficit. Sensation in tact. Motor intact. GCS 15. SKIN: Skin is warm. Capillary refill takes less than 3 seconds. not diaphoretic. Course Course 1407: The patient was evaluated in room A4. A complete history and physical exam was performed Cardiac monitoring: An order was placed for continuous cardiac monitoring. The monitor shows a rate of 80 with atrial fibrilation rhythm interpreted by la 1705: Vital signs stable. Labs and imaging within normal limits. Spoke with Dr. Thapa on-call for [facility] cardiology. Dr. Thapa states that Dr. Lopez recently had ordered a Zio patch for the patient for 3 days for concern for tachybradycardia syndrome. States that the patient had an average heart rate of 78. The patient did have a 35 beat run of wide-complex tachycardia which Dr. Thapa states Dr. Lopez reported as being in aberrant conduction. He states that Dr. Lopez wanted the patient to have a stress echo but this has not been scheduled yet. External medical records were reviewed The patient was recently admitted to the hospital no echocardiogram or stress echo was conducted. Had a long discussion with the patient and we both feel that would be best to be admitted to the hospital to get a stress echo done to be seen by cardiology in the morning. Spoke with [facility] hospice team Dr. Guerrero she was in agreement with the plan. Administered Medications Discontinued Medications Ioversol (Optiray 320 125ml) 119 ml IV ONCE ONE Stop: 06/29/23 15:06 Last Admin: 06/29/23 15:07 Dose: 119 ml Documented By: TANJA Medical Decision Making Laboratory Data Attestation: I reviewed the patient's lab results. 06/29/23 14:02 06/29/23 14:02 Lab Results 06/29/23 Range/Units 14:02 WBC 5.60 (4.8-10.8) K/ul RBC 3.92 L (4.20-5.40) M/uL Hgb 12.4 (12.0-16.0) g/dl Hct 37.6 (37.0-47.0) % MCV 95.9 (80.0-100.0) fL MCH 31.6 (25.0-34.0) pg MCHC 33.0 (32.0-36.0) g/dL RDW Std Deviation 44.6 (36.4-46.3) fL RDW Coeff of Lobo 12.7 (11.5-14.5) % Plt Count 225 (130-400) K/uL MPV 10.9 (9.4-12.4) fL Immature Gran % (Auto) 0.4 % Neut % (Auto) 64.9 % Lymph % (Auto) 24.1 % Hudson % (Auto) 8.8 % Eos % (Auto) 1.4 % Baso % (Auto) 0.4 % Neut # (Auto) 3.64 (1.40-6.50) K/uL Lymph # (Auto) 1.35 (1.20-3.40) K/uL Hudson # (Auto) 0.49 (0.11-0.59) K/uL Eos # (Auto) 0.08 (0.00-0.50) K/uL Baso # (Auto) 0.02 (0.00-0.20) K/uL Immature Gran # (Auto) 0.02 (0.01-0.20) K/uL PT 10.8 (9.0-12.0) Seconds INR 1.0 (0.9-1.1) APTT 33 H (21-31) Seconds PTT Ratio 1.2 Sodium 136 (136-145) mmol/L Potassium 3.7 (3.5-5.1) mmol/L Chloride 100 (98-107) mmol/L Carbon Dioxide 29 (21-32) mmol/L Anion Gap 7 (3-11) BUN 22 (6-23) mg/dl Creatinine 0.70 (0.6-1.2) mg/dl Est Cr Clr Drug Dosing 54.8 ml/min Est GFR ( Amer) 96.2 ml/min Est GFR (Non-Af Amer) 83.0 ml/min BUN/Creatinine Ratio 31.4 H (10-20) Glucose 113 H (70-99(Fasting)) mg/dl Calcium 10.6 H (8.6-10.3) mg/dl Magnesium 2.0 (1.7-2.4) mg/dl Total Bilirubin 0.4 (0.2-1.0) mg/dl AST 19 (13-39) U/L ALT 15 (7-52) U/L Alkaline Phosphatase 73 (34-104) U/L Troponin I High Sens 11.1 (0-14) pg/ml Total Protein 7.5 (6.0-8.3) gm/dl Albumin 4.4 (3.4-5.0) gm/dl Globulin 3.1 (2.5-4.0) gm/dl Albumin/Globulin Ratio 1.4 (0.9-2) Imaging Data Attestation: I personally reviewed and interpreted this imaging study as follows: My Impression: Chest x-ray negative. Airway clear. No pneumothorax. No consolidation. No cardiomegaly or cephalization.. No free air under the diaphragm. There is a deformity of the right humeral head which was also present on the corporate travel manager film from the CT done a few days ago. Radiologist's Impression: Chest X-Ray 06/29/23 13:57 XR chest 1V portable HISTORY: 77 years-old Female Chest pain, nonspecific COMPARISON: 06/25/2023 TECHNIQUE: AP view of the chest FINDINGS: Chronic-appearing bony defect of the right lateral humeral head. Postoperative findings within the cervical spine are incidentally noted. Lung volumes are normal. Lungs are clear. There is no pneumothorax or pleural effusion. Cardiomegaly is unchanged. Mediastinal contours are normal. There is no evidence for pulmonary edema. IMPRESSION: Cardiomegaly without acute process. ACT 112: Negative or not required by law. The above report was generated using voice recognition software. It may contain grammatical, syntax or spelling errors. Electronically signed by: Jadon Villareal M.D. 06/29/2023 2:40 PM Chest CTA 06/29/23 14:27 CT angio chest PE protocol HISTORY: 77 years-old Female with syncope. Acute dizziness with syncope and chest pain TECHNIQUE: Multiple CTA images of the chest were obtained after the intravenous administration of 119 ml Optiray. Coronal and sagittal MIPS were obtained from the axial data set and were submitted for review. All measurements were obtained according to NASCET criteria. A dose lowering technique was utilized adhering to the principles of ALARA. COMPARISON: Chest radiograph of same day, chest CT 12/29/2010 FINDINGS: CTA: Moderate cardiomegaly. There is no pericardial effusion. Moderate coronary artery calcifications. Atherosclerosis of the aorta without aneurysm or dissection. Descending thoracic aortic tortuosity. No pulmonary emboli identified. CT CHEST: Unremarkable thyroid. No pathologically enlarged nodes. No pneumothorax, pleural effusion or overt pulmonary edema. 4 mm subpleural solid nodule in the apical segment right upper lobe on image [address]able and benign. Mild pulmonary emphysema. No suspicious pulmonary nodule cyst. Hepatic cysts measure up to 8.5 cm. No acute upper abdominal abnormality identified. Cervical spinal fusion hardware. Chronic appearing defects in the proximal right humeral head laterally. No acute fracture identified. IMPRESSION: 1. Cardiomegaly without pulmonary emboli identified. 2. No pleural effusion or airspace consolidation to suggest pneumonia. ACT 112: Negative or not required by law. The above report was generated using voice recognition software. It may contain grammatical, syntax or spelling errors. Electronically signed by: Jadon Villareal M.D. 06/29/2023 3:[address] 06/29/23 14:27 CT OF THE HEAD WITHOUT CONTRAST CLINICAL HISTORY: Syncope. COMPARISON STUDY: Head CT June 24, 2023. CT DOSE: 976.82 mGy.cm TECHNIQUE: Helical axial images of the head were obtained without IV contrast. Automated exposure control was utilized for the study. A dose lowering technique was utilized adhering to the principles of ALARA. FINDINGS: No acute intracranial hemorrhage, midline shift or mass effect is present. White matter hypodensities are similar to prior exam and favor small vessel disease. The ventricular system is unremarkable. The basal cisterns are patent. No extra-axial collections are present. There are no findings to suggest acute dural sinus thrombosis or acute territorial infarct. No significant calvarial abnormalities are present. Visualized portions of the sinuses and mastoid air cells are clear. IMPRESSION: No acute intracranial findings. ACT 112: Negative or not required by law. Electronically signed by: Randall Juarez M.D. 06/29/2023 3:36 PM ECG Data Attestation: I personally reviewed and interpreted this ECG as follows: Rate (beats per minute): 84 Rhythm: + atrial fibrillation ECG Intervals/blocks: + Normal QRS and + Normal QT-c ECG ST segments: + Normal ST segments ECG Findings: + PVCs MDM Narrative 1407: The patient was evaluated in room A4. A complete history and physical exam was performed Cardiac monitoring: An order was placed for continuous cardiac monitoring. The monitor shows a rate of 80 with atrial fibrilation rhythm interpreted by me 1705: Vital signs stable. Labs and imaging within normal limits. Spoke with Dr. Thapa on-call for [facility] cardiology. Dr. Thapa states that Dr. Lopez recently had ordered a Zio patch for the patient for 3 days for concern for tachybradycardia syndrome. States that the patient had an average heart rate of 78. The patient did have a 35 beat run of wide-complex tachycardia which Dr. Thapa states Dr. Lopez reported as being in aberrant conduction. He states that Dr. Lopez wanted the patient to have a stress echo but this has not been scheduled yet. External medical records were reviewed The patient was recently admitted to the hospital no echocardiogram or stress echo was conducted. Had a long discussion with the patient and we both feel that would be best to be admitted to the hospital to get a stress echo done to be seen by cardiology in the morning. Spoke with [facility] hospice team Dr. Guerrero she was in agreement with the plan. Impression & Plan Near syncope Discharge Plan Visit Data Chief Complaint: Dizziness Stated Complaint: DIZZINESS,PASSED OUT MUL.TIMES, FALL ED Provider: Oliver Fair Discharge Problem: Near syncope Patient Disposition: Admitted As Inpatient Forms Stand Alone Forms: [facility] Prescriptions Prescriptions: No Action cholecalciferol (vitamin D3) 50 mcg (2,000 unit) capsule 0 mcg PO QPM escitalopram oxalate [Lexapro] 10 mg Tablet 10 mg PO HS Qty: 0 calcium carbonate-vitamin D3 [Calcium 500 + D] 500 mg(1,250mg) -200 unit tablet 1 tab PO QPM Qty: 0 acetaminophen 650 mg tablet extended release 1,300 mg PO TID Qty: 0 telmisartan 40 mg tablet 40 mg PO DAILY Qty: 30 2RF potassium chloride [Klor-Con M10] 10 mEq tablet,ER particles/crystals 10 meq PO DAILY Qty: 30 2RF furosemide 20 mg tablet 20 mg PO DIRECTED PRN (Reason: Edema) Rx Instructions: Take 1 tab 1-2 days per week prn. azelastine 137 mcg (0.1 %) aerosol,spray 1 spray intranasal DAILY PRN (Reason: Allergy Symptoms) Qty: 30 5RF omeprazole magnesium [Prilosec OTC] 20 mg tablet,delayed release (DR/EC) 20 mg PO QAM diclofenac sodium 1 % gel 0 g topical DIRECTED PRN (Reason: Pain) Eliquis 5 mg tablet 5 mg PO .HOLD Rx Instructions: TAKE 1 TABLET BY MOUTH TWICE DAILY Referrals Referrals: Kristina Pardo DO [Primary Care Provider] -
[2023-06-29 14:32] LABS: Basophils # (auto) 0.02 K/uL (0.00-0.20); Basophils % (auto) 0.4 %; Eosinophils # (auto) 0.08 K/uL (0.00-0.50); Eosinophils % (auto) 1.4 %; Hematocrit (blood only) 37.6 % (37.0-47.0); Hemoglobin 12.4 g/dl (12.0-16.0); Immature Granulocytes # (auto) 0.02 K/uL (0.01-0.20); Immature Granulocytes % (auto) 0.4 %; Lymphocytes # (auto) 1.35 K/uL (1.20-3.40); Lymphocytes % (auto) 24.1 %; Mean Corpuscular Hemoglobin 31.6 pg (25.0-34.0); Mean Corpuscular Volume 95.9 fL (80.0-100.0); Mean Platelet Volume 10.9 fL (9.4-12.4); Monocytes # (auto) 0.49 K/uL (0.11-0.59); Monocytes % (auto) 8.8 %; Neutrophils # (auto) 3.64 K/uL (1.40-6.50); Neutrophils % (auto) 64.9 %; Platelet Count 225 K/uL (130-400); RDW Coefficient of Variation 12.7 % (11.5-14.5); RDW Standard Deviation 44.6 fL (36.4-46.3); Red Blood Count 3.92 M/uL (4.20-5.40)
[2023-06-29 14:41] LABS: Partial Thromboplastin Ratio 1.2; Partial Thromboplastin Time 33 Seconds (21-31); Prothrombin Time 10.8 Seconds (9.0-12.0)
--- NOTE | 2023-06-29 14:42 | XRay Report ---
XR chest 1V portable HISTORY: 77 years-old Female Chest pain, nonspecific COMPARISON: 06/25/2023 TECHNIQUE: AP view of the chest FINDINGS: Chronic-appearing bony defect of the right lateral humeral head. Postoperative findings within the ce rvical spine are incidentally noted. Lung volumes are normal. Lungs are clear. There is no pneumothor ax or pleural effusion. Cardiomegaly is unchanged. Mediastinal contours are normal. There is no evide nce for pulmonary edema. IMPRESSION: Cardiomegaly without acute process. ACT 112: Negative or not required by law. The above report was generated using voice recognition software. It may contain grammatical, syntax o r spelling errors. Electronically signed by: Jadon Villareal M.D. 06/29/2023 2:40 PM
[2023-06-29 14:49] LABS: Albumin Level 4.4 gm/dl (3.4-5.0); Bilirubin,Total 0.4 mg/dl (0.2-1.0); Calcium 10.6 mg/dl (8.6-10.3); Potassium 3.7 mmol/L (3.5-5.1)
[2023-06-29 14:50] LABS: Troponin I High Sensitivity 11.1 pg/ml (0-14)
[2023-06-29 14:55] LABS: Albumin Globulin Ratio 1.4 (0.9-2); BUN Creatinine Ratio 31.4 (10-20); Creatinine Clr Calc Pharmacy 54.8 ml/min; Est GFR (African American) 96.2 ml/min; Globulin 3.1 gm/dl (2.5-4.0); Total Protein 7.5 gm/dl (6.0-8.3)
[2023-06-29] MEDS: OPTIRAY 320 125ml IV ONE (15:07)
--- NOTE | 2023-06-29 15:38 | CT Scan Report ---
CT OF THE HEAD WITHOUT CONTRAST CLINICAL HISTORY: Syncope. COMPARISON STUDY: Head CT June 24, 2023. CT DOSE: 976.82 mGy.cm TECHNIQUE: Helical axial images of the head were obtained without IV contrast. Automated exposure con trol was utilized for the study. A dose lowering technique was utilized adhering to the principles o f ALARA. FINDINGS: No acute intracranial hemorrhage, midline shift or mass effect is present. White matter hyp odensities are similar to prior exam and favor small vessel disease. The ventricular system is unrema rkable. The basal cisterns are patent. No extra-axial collections are present. There are no findings to suggest acute dural sinus thrombosis or acute territorial infarct. No significant calvarial abnorm alities are present. Visualized portions of the sinuses and mastoid air cells are clear. IMPRESSION: No acute intracranial findings. ACT 112: Negative or not required by law. Electronically signed by: Randall Juarez M.D. 06/29/2023 3:36 PM
--- NOTE | 2023-06-29 15:42 | CT Scan Report ---
CT angio chest PE protocol HISTORY: 77 years-old Female with syncope. Acute dizziness with syncope and chest pain TECHNIQUE: Multiple CTA images of the chest were obtained after the intravenous administration of 119 ml Optiray. Coronal and sagittal MIPS were obtained from the axial data set and were submitted for review. All measurements were obtained according to NASCET criteria. A dose lowering technique was u tilized adhering to the principles of ALARA. COMPARISON: Chest radiograph of same day, chest CT 12/29/2010 FINDINGS: CTA: Moderate cardiomegaly. There is no pericardial effusion. Moderate coronary artery calcifications. Ath erosclerosis of the aorta without aneurysm or dissection. Descending thoracic aortic tortuosity. No p ulmonary emboli identified. CT CHEST: Unremarkable thyroid. No pathologically enlarged nodes. No pneumothorax, pleural effusion or overt pu lmonary edema. 4 mm subpleural solid nodule in the apical segment right upper lobe on image [address] able and benign. Mild pulmonary emphysema. No suspicious pulmonary nodule cyst. Hepatic cysts measure up to 8.5 cm. No acute upper abdominal abnormality identified. Cervical spinal fusion hardware. Chronic appearing defects in the proximal right humeral head laterally. No acute fra cture identified. IMPRESSION: 1. Cardiomegaly without pulmonary emboli identified. 2. No pleural effusion or airspace consolidation to suggest pneumonia. ACT 112: Negative or not required by law. The above report was generated using voice recognition software. It may contain grammatical, syntax o r spelling errors. Electronically signed by: Jadon Villareal M.D. 06/29/2023 3:41 PM
--- NOTE | 2023-06-29 18:03 | History & Physical Report ---
Date of Service June 29, 2023 Assessment & Plan (1) Symptomatic bradycardia: Plan: Recent [place] admission on 06/23 for syncope workup Patient had another episode (dizziness; near syncope) on 06/28 where she had to lay on the floor after walking her dog, and when she checked her heart rate it was around [address] revealed no acute intracranial findings Chest CTA revealed cardiomegaly without pulmonary emboli Patient normally follows with Dr. Lopez, but has seen Dr. Hutchinson in the past Zio patch worn 05/30/23 revealed AF with an average rate in the 70s, but had asymptomatic 25 beat runs of wide-complex tachycardia thought to be aberrant conduction; ? Tachy-lola syndrome Cardiology consulted Stress echo on the morning of 06/29 N.p.o. at midnight and may need single-chamber pacer vs. loop recorder Fall precautions Will defer on-call atropine order for now, but placed communication order to reach out if pulse decreases to <50bpm + symptoms A.m. CBC, BMP (2) Permanent atrial fibrillation: Plan: Rate controlled at present; normally on Eliquis Per cardiology, will hold Eliquis the evening of 06/28 (3) Depression: Plan: Patient's 2 years ago, and she is currently in the process of moving to [place] (4) Near syncope: Plan Disposition: Admit to PCU telemetry DNR/DNI AHA diet (n.p.o. at midnight) VTE PPx: Hold Eliquis pending cardiology eval; hold chemical DVT PPx in setting of recent varicose vein stripping History of Present Illness Chief Complaint: Dizziness Primary Care Provider: DO Yamileth Benites is a 77-year-old female with PMH of syncope and collapse, permanent atrial fibrillation (on Eliquis), melanoma, left leg lymphedema, scleroderma, HLD, HTN, chronic sinusitis, chronic pain syndrome. Patient presented for near syncopal episode on 06/28. Her symptoms of dizziness and syncope first began shortly after a varicose vein procedure at [facility] on Thursday 06/22; patient reports that she had frequent blood dripping from dressing following the procedure, and initially thought this was the cause of her dizziness. She came to the [place] ED on 06/23 and had the wound glued together. Then when she was out walking her dog later that day, she got home, became acutely dizzy and blacked out before she could sit down; struck head; when she tried to get up again, she fell. She was admitted at [facility] and had a negative workup for syncope. Patient reports that something similar happened today on 06/28. Again she was out walking her dog, but then returned home, fed her dog, ate oatmeal and took her medications, then had a sudden onset of dizziness. This time she laid down on the sofa, and did not pass out. She checked her pulse ox, and noted that it went from 50 bpm down to 20 bpm, and that the room was "spinning in circles". Patient reports that she did take all of her regular morning medications today; no recent change in medications. She has been taking arthritis Tylenol 3 times per day for her headaches. She was taken off metoprolol by Dr. Lopez (who she follows with) when her heart rate started to dip around 6 weeks ago; this was when she was placed on a HR monitor. Patient notes that her Zio patch indicated that she "needed a stretch test" but she is unsure of any other results. Patient is hypertensive at 163/93 at time of admission; vitals otherwise stable. ROS: Patient endorses dizziness, lightheadedness, headaches (ongoing; which patient attributes to former neck surgery), constipation, nausea (on ; resolved), and tenderness in the left leg. Patient denies fever, chills, nightsweats, changes in vision/hearing, chest pain, SOB, chest palpitations, pleuritic CP, abdominal pain, vomiting, changes in urinary/bowel habits, dysuria, burning with urination, or numbness/tingling in the arms or legs. Allergies Allergy/AdvReac Type Severity Reaction Status Date / Time adhesive tape Allergy Intermediate itchy rash Verified 06/29/23 18:07 hydrocodone Allergy Intermediate pain, rash Verified 06/29/23 18:07 Sulfa (Sulfonamide Allergy Intermediate Hives Verified 06/29/23 18:07 Antibiotics) cyclosporine [From Restasis] Allergy Mild bah eyes Verified 06/29/23 18:07 metaxalone [From Skelaxin] AdvReac Intermediate nausea, Verified 06/29/23 18:07 dizzy metronidazole [From Flagyl] AdvReac Intermediate Gastrointestinal Verified 06/29/23 18:07 Upset doxycycline AdvReac Mild Nausea Verified 06/29/23 18:07 Home Medications Medication Instructions Recorded Confirmed Type escitalopram oxalate 10 mg tablet 10 mg PO HS #0 tabs 09/27/16 06/29/23 History (Lexapro) calcium carbonate 500 mg-vitamin 1 tab PO QPM #0 tabs 12/20/18 06/29/23 History D3 5 mcg (200 unit) tablet (Calcium 500 + D) omeprazole magnesium 20 mg 20 mg PO QAM 04/18/20 06/29/23 History tablet,delayed release (Prilosec OTC) cholecalciferol (vitamin D3) 50 2,000 mcg PO QPM 10/22/21 06/29/23 History mcg (2,000 unit) capsule telmisartan 40 mg tablet 40 mg PO DAILY #30 tabs 04/27/22 06/29/23 Rx potassium chloride 10 mEq 10 meq PO DAILY #30 tabs 11/18/22 06/29/23 Rx tablet,extended release(part/cryst) (Klor-Con M) azelastine 137 mcg (0.1 %) nasal 1 spray intranasal DAILY PRN 03/24/23 06/29/23 Rx spray aerosol Allergy Symptoms #30 mL furosemide 20 mg tablet 20 mg PO DIRECTED PRN Edema 03/24/23 06/29/23 History apixaban 5 mg tablet (Eliquis) 5 mg PO BID 06/24/23 06/29/23 History diclofenac sodium 1 % topical gel 2 g topical DIRECTED PRN Pain 06/24/23 06/29/23 History Past Med/Surg History Medical History Depression History of melanoma Seasonal allergies History of skin cancer History of COVID-19 05/2021- sore throat, cough, congestion, prater; resolved PONV (postoperative nausea and vomiting) Diverticulosis Lumbar canal stenosis History of colon polyps Lymphedema left leg Scleroderma dx years ago but currently asymptomatic Hyperlipidemia Anxiety Permanent atrial fibrillation dx 2016 - follow with Dr Lopez- last visit 1 mo ago- on eliquis daily GERD (gastroesophageal reflux disease) Hypertension Surgical History History of left cataract surgery Hx of colonoscopy History of Mohs micrographic surgery for skin cancer History of tubal ligation History of total abdominal hysterectomy History of carpal tunnel surgery left Status post spinal disc removal C2-C3 Family History Son , age 48 from influenza Alcoholism Mother Family history of CABG Osteoporosis Vascular dementia Myocardial infarction Father Coronary heart disease Hypertension Peripheral vascular disease Brother Coronary heart disease Denies family history of Ovarian cancer Prostate cancer Breast cancer Colorectal cancer Social History Smoking Status: Never smoker Second Hand Exposure: No; Do You Dip or Chew Tobacco: No; Hx Alcohol Use: Yes Alcohol type: wine Hx Substance Use: No Preferred Language: Khmer Communication Ability: Effective Visual Impairment: No Limitations Hearing Ability: Normal Road Freight Conductor Required: No Beliefs That Will Affect Care: None marital status: / Current Living Situation: Alone current occupational status: retired current occupation: former teach How many Children do You have Comment: 1 son - he is Feels Safe at Home: Yes Dental Care, Regularly: Yes Physical Activity Frequency: 3-4 Times per Week Seatbelt Use: always Sunscreen Use: Yes Assistive Devices: None Review of Systems Review of Systems: See HPI above Physical Exam Physical Exam: General: no acute distress; non-toxic appearing; well-nourished; cooperative; 96% SpO2 on RA HEENT: normocephalic, atraumatic; no scleral icterus; PERRLA; moist mucus membrane; vision and hearing grossly intact Neck: supple; trachea midline Skin: warm, dry without signs of tenting; no cyanosis; no rashes, bruising, lesions, or erythema noted CV: chest wall NTP; irregularly irregular rhythm; S1/S2 normal; no murmurs/rubs/gallops; pulses intact and symmetric at radial, DP, and PT Lungs: no acute respiratory distress; symmetrical chest wall expansion; clear breath sounds across all lung masterson w/o adventitious sounds; no wheezing ABD: Soft, NTP; BS present; no rebound/guarding; no distention MSK: no tics or fasciculations; no edema noted in the LEs b/l, nonerythematous; purple bruising on the medial aspect of the left upper thigh Neuro: A&Ox3; normal mood and affect; fluent speech; no focal deficits; sensation grossly intact in the LEs b/l Results & Data Results & Data Vital Signs (Past 12 Hours) Vital Signs Temp Pulse Pulse Resp BP BP Pulse Ox 06/29/23 16:00 72 18 130/88 99 06/29/23 14:35 79 18 130/88 95 06/29/23 13:54 36.8 C 81 20 146/80 H 97 O2 Del Method 06/29/23 16:00 06/29/23 14:35 Room Air 06/29/23 13:54 Room Air Laboratory Results Abnormal lab results 06/29/23 Range/Units 14:02 RBC 3.92 L (4.20-5.40) M/uL APTT 33 H (21-31) Seconds BUN/Creatinine Ratio 31.4 H (10-20) Glucose 113 H (70-99(Fasting)) mg/dl Calcium 10.6 H (8.6-10.3) mg/dl Diagnostic Findings Chest X-Ray 06/29/23 13:57 XR chest 1V portable HISTORY: 77 years-old Female Chest pain, nonspecific COMPARISON: 06/25/2023 TECHNIQUE: AP view of the chest FINDINGS: Chronic-appearing bony defect of the right lateral humeral head. Postoperative findings within the cervical spine are incidentally noted. Lung volumes are normal. Lungs are clear. There is no pneumothorax or pleural effusion. Cardiomegaly is unchanged. Mediastinal contours are normal. There is no evidence for pulmonary edema. IMPRESSION: Cardiomegaly without acute process. ACT 112: Negative or not required by law. The above report was generated using voice recognition software. It may contain grammatical, syntax or spelling errors. Electronically signed by: Jadon Villareal M.D. 06/29/2023 2:40 PM Chest CTA 06/29/23 14:27 CT angio chest PE protocol HISTORY: 77 years-old Female with syncope. Acute dizziness with syncope and chest pain TECHNIQUE: Multiple CTA images of the chest were obtained after the intravenous administration of 119 ml Optiray. Coronal and sagittal MIPS were obtained from the axial data set and were submitted for review. All measurements were obtained according to NASCET criteria. A dose lowering technique was utilized adhering to the principles of ALARA. COMPARISON: Chest radiograph of same day, chest CT 12/29/2010 FINDINGS: CTA: Moderate cardiomegaly. There is no pericardial effusion. Moderate coronary artery calcifications. Atherosclerosis of the aorta without aneurysm or dissection. Descending thoracic aortic tortuosity. No pulmonary emboli identified. CT CHEST: Unremarkable thyroid. No pathologically enlarged nodes. No pneumothorax, pleural effusion or overt pulmonary edema. 4 mm subpleural solid nodule in the apical segment right upper lobe on image [address]able and benign. Mild pulmonary emphysema. No suspicious pulmonary nodule cyst. Hepatic cysts measure up to 8.5 cm. No acute upper abdominal abnormality identified. Cervical spinal fusion hardware. Chronic appearing defects in the proximal right humeral head laterally. No acute fracture identified. IMPRESSION: 1. Cardiomegaly without pulmonary emboli identified. 2. No pleural effusion or airspace consolidation to suggest pneumonia. ACT 112: Negative or not required by law. The above report was generated using voice recognition software. It may contain grammatical, syntax or spelling errors. Electronically signed by: Jadon Villareal M.D. 06/29/2023 3:[address] 06/29/23 14:27 CT OF THE HEAD WITHOUT CONTRAST CLINICAL HISTORY: Syncope. COMPARISON STUDY: Head CT June 24, 2023. CT DOSE: 976.82 mGy.cm TECHNIQUE: Helical axial images of the head were obtained without IV contrast. Automated exposure control was utilized for the study. A dose lowering technique was utilized adhering to the principles of ALARA. FINDINGS: No acute intracranial hemorrhage, midline shift or mass effect is present. White matter hypodensities are similar to prior exam and favor small vessel disease. The ventricular system is unremarkable. The basal cisterns are patent. No extra-axial collections are present. There are no findings to suggest acute dural sinus thrombosis or acute territorial infarct. No significant loly rial abnormalities are present. Visualized portions of the sinuses and mastoid air cells are clear. IMPRESSION: No acute intracranial findings. ACT 112: Negative or not required by law. Electronically signed by: Randall Juarez M.D. 06/29/2023 3:36 PM Code Status & VTE Plan Code Status DNR/DNI Supervising Physician Co-Signing Physician Notes I personally saw and examined the patient. I independently reviewed the labs, EKG, imaging, problem list, medication list, past medical history and family history. I verified all rivera points and agree with Wesley Alejo, PA-C with the following exceptions and/or additions: 77 year old presents to the ER with presyncope. Similar symptoms to last admission although she has noticed her HR going down to the 20s. O/E A&Ox3, HS RRR, no murmurs, Chest CTAB, Abdo SNT A/P Presyncope / tachy-lola syndrome - as per cardiology, monitor on telemetry overnight, hold eliquis, stress test in AM, consult cardiology Otherwise as above PG Care Time/CCT Total # of Minutes Spent Total Time Spent with Patient: Total time spent is greater than 50% in coordination of care (as documented) at patient's floor/unit and/or counseling patient: C[place] [address] INT INP/OBS CARE 2/55MIN Patient Type Established Medical Decision Making Moderate Complexity Diagnoses Symptomatic bradycardia R00.1 Permanent atrial fibrillation I48.21 Depression F32.A Near syncope R55
[2023-06-29] MEDS ORDERED: AZELASTINE HCL 0.1% NASAL 200 SPRAYS/27,400 MCG BTL PRN (20:45)
[2023-06-29] MEDS ORDERED: ACETAMINOPHEN 325 MG TAB PO PRN (20:45)
[2023-06-29] MEDS: ESCITALOPRAM OXALATE 10 MG TAB PO SCH (23:12)
[2023-06-29] MEDS: ACETAMINOPHEN 500 MG TAB PO SCH (23:14)
[2023-06-29] MEDS: PANTOprazole 40 MG TAB PO SCH (23:14)
[2023-06-30 04:15] LABS: Basophils # (auto) 0.02 K/uL (0.00-0.20); Basophils % (auto) 0.4 %; Eosinophils # (auto) 0.22 K/uL (0.00-0.50); Eosinophils % (auto) 4.5 %; Hematocrit (blood only) 33.4 % (37.0-47.0); Hemoglobin 11.2 g/dl (12.0-16.0); Immature Granulocytes # (auto) 0.01 K/uL (0.01-0.20); Immature Granulocytes % (auto) 0.2 %; Lymphocytes # (auto) 1.85 K/uL (1.20-3.40); Lymphocytes % (auto) 37.8 %; Mean Corpuscular Hgb Conc 33.5 g/dL (32.0-36.0); Mean Corpuscular Volume 95.4 fL (80.0-100.0); Mean Platelet Volume 10.4 fL (9.4-12.4); Monocytes # (auto) 0.61 K/uL (0.11-0.59); Monocytes % (auto) 12.5 %; Neutrophils # (auto) 2.18 K/uL (1.40-6.50); Neutrophils % (auto) 44.6 %; Platelet Count 208 K/uL (130-400); RDW Coefficient of Variation 12.7 % (11.5-14.5); White Blood Count 4.89 K/ul (4.8-10.8)
--- OUTSIDE RECORDS SUMMARY | 2023-06-30 04:16 | External Medical Summary | Summary of Care ---
Author Name Unknown Organization [facility] Address [address] [place] [address] Phone [phone] Care Team Providers Care Pneumatic Tube Fitter Name Role Phone Kristina Pardo MD Primary Care Provider [phone] Reason for Visit * Reason Onset Date Comments Advice 06/24/2023 Encounter Details Date Type Department Care Team (Late st Contact Info) Description 06/24/2023 Telephone Vascular Surg [facility] [address] [place], [place] [id number] Gertrude Coyne CRNP [address] [place] [address] Advice Allergies Active Allergy Reactions Criticality Noted Date Comments Barium-Containing Compounds Nausea/vomiting 09/14/2007 "Bar-Cat" Other - Drugs 09/14/2007 Some anesthesia caused vomiting Sulfa Antibiotics Hives 09/14/2007 documented as of this encounter (statuses as of 06/25/2023) Medications Medication Sig Dispensed Refills Start Date [...] as of this encounter (statuses as of 06/25/2023) Active Problems Problem Noted Date Diagnosed Date Venous insufficiency 03/17/2023 Varicose veins of leg with complications 024 MELANOMA LEG 09/22/2007 ADVANCE DIRECTIVE INFORMATION 09/14/2007 Overview: Yes, Patient instructed to provide copy of advance directive for provider to review and to be scanned into Electronic Medical Record. documented as of this encounter (statuses as of 06/25/2023) Immunizations Name Administration Dates Next Due Seasonal [...] encounter Miscellaneous Notes * Telephone Encounter - Aren Gomez OSA - 06/25/2023 1:08 PM EDT Pt called. Per derrick pt in [facility] yesterday. Wound had stopped bleeding, but now she wants to know if she can remove bandage and get a shower. Her study is now Wednesday Could someone please call her back? GISSEL Hunter * Telephone Encounter - Gertrude Coyne CRNP - 06/24/2023 12:54 PM EDT Received a call from Andrew GUTIERREZ) in the ER at [facility]. Reports that Yamileth presented to the ER [...] Care Team (Late st Contact Info) Description 06/28/2023 11:30 AM EDT Imaging Vascular Lab, [facility] 2nd [facility] [address] [place] [address] 12/02/2023 8:30 AM EDT Office Visit Cardiology, [facility] [address] [facility] [place] [address] Sam Lopez MD [address] [facility] [place] [address] Health Maintenance Due Date Last Done Comments DXA Scan 1944 Depression Screening 1956 Hepatitis C Screening 1962 DTaP,Tdap,and Td Vaccines (1 - Tdap) 08/07/1963 Zoster Vaccines (2 of 3) 04/02/2009 02/05/2009 COVID-19 Vaccine ( season) 2022 12/10/2021, 06/27/2021, 11/28/2020, Additional history [...] filedocumented as of this encounter Care Teams Pneumatic Tube Fitter Relationship Specialty Start Date End Date Kristina Pardo MD [address] [place] [address] PCP - General Family Medicine 05/28/23 documented as of this encounter
--- OUTSIDE RECORDS SUMMARY | 2023-06-30 04:16 | External Medical Summary | Summary of Care ---
Author Name Unknown Organization [facility] Address [address] [place] [address] Phone [phone] Care Team Providers Care Carbon Sequestration Plant Manager Name Role Phone Kristina Pardo MD Primary Care Provider [phone] Reason for Visit * Reason Onset Date Comments Advice 06/23/2023 Encounter Details Date Type Department Care Team (Late st Contact Info) Description 06/23/2023 Telephone [facility] [place] [place] [address] [place] [address] Nita Oscar MD [address] [place] [address] Advice Allergies Active Allergy Reactions Criticality Noted Date Comments Barium-Containing Compounds Nausea/vomiting 09/14/2007 "Bar-Cat" Other - Drugs 09/14/2007 Some anesthesia caused vomiting Sulfa Antibiotics Hives 09/14/2007 documented as of this encounter (statuses as of 06/28/2023) Medications Medication Sig Dispensed Refills Start Date [...] as of this encounter (statuses as of 06/28/2023) Active Problems Problem Noted Date Diagnosed Date Venous insufficiency 03/17/2023 Varicose veins of leg with complications 024 MELANOMA LEG 09/22/2007 ADVANCE DIRECTIVE INFORMATION 09/14/2007 Overview: Yes, Patient instructed to provide copy of advance directive for provider to review and to be scanned into Electronic Medical Record. documented as of this encounter (statuses as of 06/28/2023) Immunizations Name Administration Dates Next Due Seasonal [...] encounter Miscellaneous Notes * Telephone Encounter - Yusuf Riggins PA-C - 06/28/2023 2:13 PM EDT Following review of weekend post op events, I called the patient She did have her post op venous duplex today @ [facility] which revealed successfully ablated left GSV w/ Level 1 closure. Results relayed to pt Regarding her early post op events, patient did goto [facility] ER on 06/22, as instructed, for post op bleeding (see separate telemed call on 06/23). No further bleeding or drainage over the weekend. Once pt got home from the 06/22 [facility] ER visit, patient had near syncope episode. Admitted to [facility] overnight, from 06/22 to 06/23. She did not require a blood transfusion and had no associated trauma. Currently, pt is having some fatigue but denies FLAHERTY or chest pain When speaking to patient today, she feels that the bleeding that lead to dressing saturation in thePACU directly following surgery should be have had more done than just re-enforcement of the dressing. I told her that is what we typically do and it, in most instances, stops further bleeding. We did discuss that being on Eliquis (held john-op) made post op bleeding more likely I offered to see pt in follow-up, if she would like. She declined my offer. I told her that if she should change her mind, she can call us back. She has our office number and my cell number She is due to see her PCP, new to her, this week Yusuf Riggins PA-C * Telephone Encounter - Camelia Maya OSA - 06/24/2023 8:09 AM EDT Krista in scheduling received call from patient regarding her dressings being saturated. Krista offeredto schedule a clinic visit in [place] today but the patient refused. Please advise. [phone] * Telephone Encounter - Nita Oscar MD - 06/23/2023 8:39 PM EDT Patient call back regarding saturation of LLE dressings s/p stab phlebectomy with Dr. Hirsch today. I saw this patient in PACU with Dr. Roblero earlier today for saturation of her dressings then. Patientis on Eliquis for hx of afib. Tonight, patient says her dressings are again saturated. I advised patient to rewrap dressing with seven bandage with compression and to elevate her legs with pillows above the level of the heart. She had a friend at bedside who is an RN, both she and patient expressed understanding and would attemptto rewrap leg with seven bandages tightly. Her RN friend would be able to assist her with rewrapping her leg. If bleeding were to continue, advised patient to be seen in the ED. Jenny Oscar MD - PGY2 General Surgery Resident [facility] documented in this encounter Plan of Treatment Upcoming Encounters Date Type Department Care Team (Late st Contact Info) Description 12/02/2023 8:30 AM EDT Office Visit Cardiology, [facility] [address] [place] [address] Sam Lopez MD [address] [place] [address] Health Maintenance Due Date Last Done Comments [...] filedocumented as of this encounter Care Teams Carbon Sequestration Plant Manager Relationship Specialty Start Date End Date Kristina Pardo MD [address] [place] [address] PCP - General Family Medicine 05/28/23 documented as of this encounter
--- OUTSIDE RECORDS SUMMARY | 2023-06-30 04:16 | External Medical Summary | Summary of Care ---
Author Name Unknown Organization [facility] Address [address] [facility] [place] [place] [address] Phone [phone] Care Team Providers Care Hazard Waste Handler Name Role Phone Kristina Pardo MD Primary Care Provider [phone] Reason for Visit * Reason Onset Date Comments Advice 06/28/2023 Encounter Details Date Type Department Care Team (Late st Contact Info) Description 06/28/2023 Telephone Cardiology, [facility] [address] [place] [address] Sam Lopez MD [address] [place] [address] Advice Allergies Active Allergy Reactions Criticality Noted Date Comments Barium-Containing Compounds Nausea/vomiting 09/14/2007 "Bar-Cat" Other - Drugs 09/14/2007 Some anesthesia caused vomiting Sulfa Antibiotics Hives 09/14/2007 documented as of this encounter (statuses as of 06/29/2023) Medications Medication Sig Dispensed Refills Start Date [...] as of this encounter (statuses as of 06/29/2023) Active Problems Problem Noted Date Diagnosed Date Venous insufficiency 03/17/2023 Varicose veins of leg with complications 024 MELANOMA LEG 09/22/2007 ADVANCE DIRECTIVE INFORMATION 09/14/2007 Overview: Yes, Patient instructed to provide copy of advance directive for provider to review and to be scanned into Electronic Medical Record. documented as of this encounter (statuses as of 06/29/2023) Immunizations Name Administration Dates Next Due Seasonal [...] encounter Miscellaneous Notes * Telephone Encounter - Iván Nino RN - 06/28/2023 8:40 AM EDT Patient phoned the clinic this am and stated she had stab phlebectomy on her varicose veins at [facility] on 06/23/2023. She stated she was sent home and developed post-op bleeding of her LLE and had spoke with the vascular clinic in [place] and she was also seen in the ER at [facility] in which the ERwas able to help control the bleeding. She went home and later that date she states she had a possible syncope spell. She is wondering if it was related to the drop in the HGB. She went back to the ER and was admitted for observation in the ER and went home on Wednesday morning. She states at the moment she is dizzy and c/o weakness. She states she is coming in for her venous doppler studies of her leg and wants to get it done. She states her HR on the pulse ox has been running 70's-80's. She has a-fib in which she takes Eliquis . She stated over the weekend at times her HR did drop into the 40's-50's in which then came right back up to controlled a-fib. Her BP yesterday was 130/75. She is going to take her BP before she comes in today and will stop by the clinic and let me know what it is. I called [facility] for her records from over the weekend in the ER. Patient cam into the clinic for vascular studies and she stated her Bp was 141/69 at home prior to coming in. documented in this encounter Plan of Treatment Upcoming Encounters Date Type Department Care Team (Late st Contact Info) Description 12/02/2023 8:30 AM EDT Office Visit Cardiology, [facility] [address] [place] [address] Sam Lopez MD [address] [place] [address] Health Maintenance Due Date Last Done Comments DXA Scan 1944 Depression Screening 1956 Hepatitis C Screening 1962 DTaP,Tdap,and Td Vaccines (1 - Tdap) 08/07/1963 Zoster Vaccines (2 of 3) 04/02/2009 02/05/2009 Influenza Vaccine (FLU shot) (Season Ended) 2023 12/14/2018, 12/26/2014 Pneumococcal Vaccine: 65+ Years Completed 12/02/2021, 10/02/2015, 12/19/2013 COVID-19 Vaccine Completed 12/24/2022, 07/2021, 06/27/2021, Additional history exists GARDASIL-HPV IMMUNIZATION SERIES Aged Out No longer eligible based on patient's age to complete this topic Hepatitis B Aged Out No longer eligi ble based on patient's age to complete this topic MENINGOCOCCAL (MENACTRA/MENVEO) Aged Out No longer eligible based on patient's age to complete this topic documented as of this encounter Medical Devices Not on filedocumented as of this encounter Care Teams Hazard Waste Handler Relationship Specialty Start Date End Date Kristina Pardo MD [address] [place] [address] PCP - General Family Medicine 05/28/23 documented as of this encounter
--- OUTSIDE RECORDS SUMMARY | 2023-06-30 04:16 | External Medical Summary | Summary of Care ---
Author Name Unknown Organization [facility] Address [address] [place] [address] Phone [phone] Care Team Providers Care Structural Mill Supervisor Name Role Phone Kristina Pardo MD Primary Care Provider [phone] Reason for Visit * Reason Onset Date Comments Advice 06/24/2023 Encounter Details Date Type Department Care Team (Late st Contact Info) Description 06/24/2023 Telephone Vascular Surg [facility] [address], [place] [id number] Gertrude Coyne CRNP [address] [place] [address] Advice Allergies Active Allergy Reactions [...] encounter Miscellaneous Notes * Telephone Encounter - Julia Barreto LPN - 06/25/2023 1:29 PM EDT Spoke with patient and I made her aware that as long as the bleeding has stopped she is able to remove the wrap and get a shower. I told her to be careful not to bump or rub the area, so the bleedingdoes not start again. I also told her that she should re wrap her leg with the seven wraps. Julia Barreto LPN 06/25/2023 1:30 PM * Telephone Encounter - Aren Gomez OSA - 06/25/2023 1:08 PM EDT Pt called. Per thread, pt in [facility] yesterday. Wound had stopped bleeding, but now she wants to know if she can remove bandage and get a shower. Her study is now Wednesday Could someone please call her back? GISSEL Hunter * Telephone Encounter - Gertrude Coyne CRNP - 06/24/2023 12:54 PM EDT Received a call from Andrew GUTIERREZ) in the ER at [facility]. Reports that Yamileth presented to the ER [...] 06/28/2023 11:30 AM EDT Imaging Vascular Lab, [facility], [address] [place] [address] 12/02/2023 8:30 AM EDT Office Visit Cardiology, [facility] [address] [place] [address] Sam Lopez MD [address] [place] [address] Health Maintenance Due Date Last Done Comments [...] filedocumented as of this encounter Care Teams Structural Mill Supervisor Relationship Specialty Start Date End Date Kristina Pardo MD [address] [place], [place] [address] PCP - General Family Medicine 05/28/23 documented as of this encounter
[2023-06-30 04:33] LABS: BUN Creatinine Ratio 28.6 (10-20); Calcium 9.7 mg/dl (8.6-10.3); Creatinine Clr Calc Pharmacy 45.4 ml/min; Est GFR (African American) 85.7 ml/min; Potassium 4.1 mmol/L (3.5-5.1)
[2023-06-30] MEDS: LOSARTAN POTASSIUM 50 MG TAB PO SCH (07:22)
[2023-06-30] MEDS: POTASSIUM CHLORIDE 10 MEQ TABCR PO SCH (07:22)
[2023-06-30] MEDS ORDERED: PANTOprazole 40 MG TAB PO SCH (09:00)
--- NOTE | 2023-06-30 11:38 | Cardiology Consultation ---
Date of Consultation June 30, 2023 Assessment & Plan (1) Syncope: (2) Permanent atrial fibrillation: (3) Incomplete right bundle branch block: Plan Is difficult to determine if her recent symptoms are due to recovery from her recent vascular procedure with noted transient decline in hemoglobin. Patient has underlying conduction system disease in the form of incomplete right bundle branch block, and Dr. Lopez's past progress notes have raise concerns for underlying tachycardia-bradycardia syndrome in the past. At present, there is no objective evidence to suggest pacemaker is indicated at present. Recommend proceeding with an exercise stress echocardiogram for evaluation of underlying structural heart disease, screening for ischemia, and chronotropic competence. As far no significant bradycardia noted on telemetry. Future considerations include possible loop recorder implantation or permanent pacemaker if clear indication becomes evident. Valery held this morning pending testing. I counseled the patient's nurse to provide a light snack for her in preparation for stress echocardiogram. Further recommendations will be forthcoming. History of Present Illness Attending Physician: Oswaldo Mccartney MD History of Present Illness Yamileth Hinojosa is a 77-year-old female seen in cardiology consultation per the request of Dr Dhillon for the evaluation of recurrent syncope. The patient follows with Dr. Lopez of our practice and has a history of permanent atrial fibrillation and incomplete right bundle branch block. In May,, patient had undergone a 3-day Zio patch with findings of persistent atrial fibrillation, 100% atrial fibrillation burden, with ventricular rate ranging from 51 to 128 bpm, average rate was 78 bpm. No significant bradycardia was observed. There was a single 35 beat run of wide- complex tachycardia with morphology suggestive of atrial arrhythmia with aberrant conduction. No symptoms were reported while wearing the monitor. On 06/23/2023 the patient underwent phlebectomy of varicose veins in her left leg with endovenous radiofrequency ablation at [facility]. Baseline hemoglobin leading up to the procedure was 13.3 g/dL the day of the procedure. She presented to the emergency department at [facility] a day later on 06/24/2023 after one of the sites had significant bleeding and her hemoglobin had dropped to measurements of 11.9 g/dL. After intervention to stop the bleeding, she was discharged from the emergency department and after walking her dog she had a episode of severe dizziness and passed out with subsequent head trauma. She crawled to her landline phone, called 911 and presented back to the emergency room with repeat hemoglobin on 06/24/2023 at 1930 of 11.4 g/dL. She remained hospitalized from 06/24/2023 until 06/25/2023 with negative workup. Two days ago she reported feeling well and then yesterday on 06/29/2023 she had a recurrent episode of prolonged dizziness. She placed her home pulse oximeter on her finger and noted a reading with heart rates in the 20s to 40s. She presented again to the emergency department and atrial fibrillation in the 70s noted on arrival as well as overnight last night. EKG 06/29/2023 at 1401 and interpreted independently revealed atrial fibrillation 84 bpm with occasional PVCs. Lab work is revealed stable findings with hemoglobin improved to 12.4 on presentation yesterday. Chest x-ray, CT angiogram chest, and head CT without acute findings. At present, patient without symptoms. Allergies Allergy/AdvReac Type Severity Reaction Status Date / Time adhesive tape Allergy Intermediate itchy rash Verified 06/29/23 18:07 hydrocodone Allergy Intermediate pain, rash Verified 06/29/23 18:07 Sulfa (Sulfonamide Allergy Intermediate Hives Verified 06/29/23 18:07 Antibiotics) cyclosporine [From Restasis] Allergy Mild bah eyes Verified 06/29/23 18:07 metaxalone [From Skelaxin] AdvReac Intermediate nausea, Verified 06/29/23 18:07 dizzy metronidazole [From Flagyl] AdvReac Intermediate Gastrointestinal Verified 06/29/23 18:07 Upset doxycycline AdvReac Mild Nausea Verified 06/29/23 18:07 Home Medications Medication Instructions Recorded Confirmed Type escitalopram oxalate 10 mg tablet 10 mg PO HS #0 tabs 09/27/16 06/29/23 History (Lexapro) calcium carbonate 500 mg-vitamin 1 tab PO QPM #0 tabs 12/20/18 06/29/23 History D3 5 mcg (200 unit) tablet (Calcium 500 + D) omeprazole magnesium 20 mg 20 mg PO QAM 04/18/20 06/29/23 History tablet,delayed release (Prilosec OTC) cholecalciferol (vitamin D3) 50 2,000 mcg PO QPM 10/22/21 06/29/23 History mcg (2,000 unit) capsule telmisartan 40 mg tablet 40 mg PO DAILY #30 tabs 04/27/22 06/29/23 Rx potassium chloride 10 mEq 10 meq PO DAILY #30 tabs 11/18/22 06/29/23 Rx tablet,extended release(part/cryst) (Klor-Con M) azelastine 137 mcg (0.1 %) nasal 1 spray intranasal DAILY PRN 03/24/23 06/29/23 Rx spray aerosol Allergy Symptoms #30 mL furosemide 20 mg tablet 20 mg PO DIRECTED PRN Edema 03/24/23 06/29/23 History apixaban 5 mg tablet (Eliquis) 5 mg PO BID 06/24/23 06/29/23 History diclofenac sodium 1 % topical gel 2 g topical DIRECTED PRN Pain 06/24/23 06/29/23 History Patient History Medical History Depression History of melanoma Seasonal allergies History of skin cancer History of COVID-19 05/2021- sore throat, cough, congestion, prater; resolved PONV (postoperative nausea and vomiting) Diverticulosis Lumbar canal stenosis History of colon polyps Lymphedema left leg Scleroderma dx years ago but currently asymptomatic Hyperlipidemia Anxiety Permanent atrial fibrillation dx 2016 - follow with Dr Lopez- last visit 1 mo ago- on eliquis daily GERD (gastroesophageal reflux disease) Hypertension Surgical History History of left cataract surgery Hx of colonoscopy History of Mohs micrographic surgery for skin cancer History of tubal ligation History of total abdominal hysterectomy History of carpal tunnel surgery left Status post spinal disc removal C2-C3 Family History Son , age 48 from influenza Alcoholism Mother Family history of CABG Osteoporosis Vascular dementia Myocardial infarction Father Coronary heart disease Hypertension Peripheral vascular disease Brother Coronary heart disease Denies family history of Ovarian cancer Prostate cancer Breast cancer Colorectal cancer Social History Smoking Status: Never smoker Second Hand Exposure: No; Do You Dip or Chew Tobacco: No; Hx Alcohol Use: Yes Alcohol type: wine Hx Substance Use: No Preferred Language: [place] Communication Ability: Effective Visual Impairment: No Limitations Hearing Ability: Normal Director Of Events Required: No Beliefs That Will Affect Care: None marital status: / Current Living Situation: Alone current occupational status: retired current occupation: former teach How many Children do You have Comment: 1 son - he is Feels Safe at Home: Yes Dental Care, Regularly: Yes Physical Activity Frequency: 3-4 Times per Week Seatbelt Use: always Sunscreen Use: Yes Assistive Devices: None Review of Systems Review of Systems: All systems reviewed & are unremarkable except as noted in HPI & below Physical Exam Respiratory: normal respiratory effort, lungs clear to auscultation Cardiovascular: RRR, no murmur, no edema Gastrointestinal (Abdomen): normal bowel sounds, soft, nontender, no hepatosplenomegaly Skin: Steri-Strips throughout the left lower legs and previous varicose vein treatment sites, mild ecchymosis, no drainage Neurologic: PERRL, EOMI, accommodation nl, no face palsy, no dysarthria Results & Data Vital Signs (Past 12 Hours) Vital Signs Temp Pulse Pulse Resp BP BP Pulse Ox 06/30/23 08:00 74 06/30/23 07:15 36.5 C 75 20 171/111 H 98 06/30/23 03:00 72 14 06/30/23 02:00 85 15 141/87 H 06/30/23 00:13 68 16 157/81 H 98 O2 Del Method 06/30/23 08:00 06/30/23 07:15 Room Air 06/30/23 03:00 06/30/23 02:00 06/30/23 00:13 Room Air Laboratory Results Cardiac Enzymes 06/29/23 Range/Units 14:02 AST 19 (13-39) U/L Troponin I High Sens 11.1 (0-14) pg/ml Coagulation 06/29/23 Range/Units 14:02 PT 10.8 (9.0-12.0) Seconds APTT 33 H (21-31) Seconds CBC 06/29/23 06/30/23 Range/Units 14:02 03:54 WBC 5.60 4.89 (4.8-10.8) K/ul RBC 3.92 L 3.50 L (4.20-5.40) M/uL Hgb 12.4 11.2 L (12.0-16.0) g/dl Hct 37.6 33.4 L (37.0-47.0) % Plt Count 225 208 (130-400) K/uL Neut # (Auto) 3.64 2.18 (1.40-6.50) K/uL Lymph # (Auto) 1.35 1.85 (1.20-3.40) K/uL [place] # (Auto) 0.49 0.61 H (0.11-0.59) K/uL Eos # (Auto) 0.08 0.22 (0.00-0.50) K/uL Baso # (Auto) 0.02 0.02 (0.00-0.20) K/uL Comprehensive Metabolic Panel 06/29/23 06/30/23 Range/Units 14:02 03:53 Sodium 136 135 L (136-145) mmol/L Potassium 3.7 4.1 (3.5-5.1) mmol/L Chloride 100 99 (98-107) mmol/L Carbon Dioxide 29 31 (21-32) mmol/L BUN 22 22 (6-23) mg/dl Creatinine 0.70 0.77 (0.6-1.2) mg/dl Glucose 113 H 103 H (70-99(Fasting)) mg/dl Calcium 10.6 H 9.7 (8.6-10.3) mg/dl AST 19 (13-39) U/L ALT 15 (7-52) U/L Alkaline Phosphatase 73 (34-104) U/L Total Protein 7.5 (6.0-8.3) gm/dl Albumin 4.4 (3.4-5.0) gm/dl Intake and Output 06/29/23 06/30/23 06/30/23 22:59 06:59 14:59 Intake Total 0 / 0 Balance 0 / 0 Intake: Oral 0 / 0 Other: # Unmeasured Voids 3 Weight 52.9 kg Weight Measurement Method Built in [facility] (1) Syncope Syncope type: unspecified Qualified Code(s): R55 - Syncope and collapse
--- NOTE | 2023-06-30 14:14 | Communication Note ---
Date of Service: June 30, 2023 Pt underwent exercise stress echo , modified Osmany protocol. Heart rate response to exercise was normal. BP response to exercise was normal. Dizziness reproduced with exercise. Echo response to stress was normal with normal post stress wall motion. At rest LVEF was normal with no wall motion abnormalities. Plan: Advance diet. Recommend pt eats and stays hydrated prior to exertion as these episodes typically happen with activity such as walking her dog on an empty stomach for years. No indication for loop recorder or pacemaker at present. Resume Eliquis, 5 mg x 1 now, next dose in am. Stable for discharge from a cardiac perspective. Kwame Hutchinson,
[2023-06-30] MEDS: APIXABAN 5 MG TABLET PO STA (14:30)
--- NOTE | 2023-06-30 14:40 | Discharge Summary ---
Date of Service June 30, 2023 Admission HPI Per Admitting Provider Yamileth is a 77-year-old female with PMH of syncope and collapse, permanent atrial fibrillation (on Eliquis), melanoma, left leg lymphedema, scleroderma, HLD, HTN, chronic sinusitis, chronic pain syndrome. Patient presented for near syncopal episode on 06/28. Her symptoms of dizziness and syncope first began shortly after a varicose vein procedure at [facility] on Thursday 06/22; patient reports that she had frequent blood dripping from dressing following the procedure, and initially thought this was the cause of her dizziness. She came to the [facility] ED on 06/23 and had the wound glued together. Then when she was out walking her dog later that day, she got home, became acutely dizzy and blacked out before she could sit down; struck head; when she tried to get up again, she fell. She was admitted at [facility] and had a negative workup for syncope. Patient reports that something similar happened today on 06/28. Again she was out walking her dog, but then returned home, fed her dog, ate oa tmeal and took her medications, then had a sudden onset of dizziness. This time she laid down on the sofa, and did not pass out. She checked her pulse ox, and noted that it went from 50 bpm down to 20 bpm, and that the room was "spinning in circles". Patient reports that she did take all of her regular morning medications today; no recent change in medications. She has been taking arthritis Tylenol 3 times per day for her headaches. She was taken off metoprolol by Dr. Lopez (who she follows with) when her heart rate started to dip around 6 weeks ago; this was when she was placed on a HR monitor. Patient notes that her Zio patch indicated that she "needed a stretch test" but she is unsure of any other results. Patient is hypertensive at 163/93 at time of admission; vitals otherwise stable. ROS: Patient endorses dizziness, lightheadedness, headaches (ongoing; which patient attributes to former neck surgery), constipation, nausea (on ; resolved), and tenderness in the left leg. Patient denies fever, chills, nightsweats, changes in vision/hearing, chest pain, SOB, chest palpitations, pleuritic CP, abdominal pain, vomiting, changes in urinary/bowel habits, dysuria, burning with urination, or numbness/tingling in the arms or legs. Principal Diagnosis near syncope Discharge Exam The patient is awake, alert and oriented 3, well developed and well nourished, normocephalic and atraumatic, lying in bed and in no acute distress. HEENT--PERRL, EOMI, mucous membranes and oropharynx mildly dry Neck--supple. No JVD. No bruits. Thyroid normal, trachea midline, no adenopathy. Heart--normal S1 and S2. No murmurs, rubs or gallops. Lungs--clear bilaterally, no respiratory distress, no accessory muscle use. Abdomen--normal bowel sounds and soft. Extremities--no cyanosis or clubbing. No edema. Dermatologic--normal skin turgor, normal color, no abnormal lymph nodes, no rash. Neurologic--cranial nerves II through XII grossly intact. Rheumatologic--normal range of motion. Psychiatric--normal affect. Discharge Data Allergies Allergy/AdvReac Type Severity Reaction Status Date / Time adhesive tape Allergy Intermediate itchy rash Verified 06/29/23 18:07 hydrocodone Allergy Intermediate pain, rash Verified 06/29/23 18:07 Sulfa (Sulfonamide Allergy Intermediate Hives Verified 06/29/23 18:07 Antibiotics) cyclosporine [From Restasis] Allergy Mild bah eyes Verified 06/29/23 18:07 metaxalone [From Skelaxin] AdvReac Intermediate nausea, Verified 06/29/23 18:07 dizzy metronidazole [From Flagyl] AdvReac Intermediate Gastrointestinal Verified 06/29/23 18:07 Upset doxycycline AdvReac Mild Nausea Verified 06/29/23 18:07 Consultations 06/29/23 17:22 ED Decision to Admit Stat 06/29/23 20:45 Consult Cardiology Routine Ordered Studies 06/29/23 14:27 CT angio chest PE protocol Stat CT head/brain wo con Stat Hospital Course (1) Symptomatic bradycardia: Recent [place] admission on 06/23 for syncope workup Patient had another episode (dizziness; near syncope) on 06/28 where she had to lay on the floor after walking her dog, and when she checked her heart rate it was around [address] revealed no acute intracranial findings Chest CTA revealed cardiomegaly without pulmonary emboli Patient normally follows with Dr. Lopez, but has seen Dr. Hutchinson in the past Zio patch worn 05/30/23 revealed AF with an average rate in the 70s, but had asymptomatic 25 beat runs of wide-complex tachycardia thought to be aberrant conduction; ? Tachy-lola syndrome Cardiology consulted Patient underwent exercise stress echo, modified Osmany protocol Test was essentially within normal limits Per cardiology, no indication for loop recorder or pacemaker Recommend patient to stay hydrated and notes to to have food usually before activity especially walking her dog. Recommend discharge home, follow-up with cardiology or PCP. (2) Permanent atrial fibrillation: Rate controlled at present; normally on Eliquis Per cardiology, resume Eliquis (3) Depression: Patient's 2 years ago, and she is currently in the process of moving to [facility] Continue Lexapro (4) Near syncope: Plan Disposition: Discharge home DNR/DNI AHA diet (n.p.o. at midnight) VTE PPx: Hold Eliquis pending cardiology eval; hold chemical DVT PPx in setting of recent varicose vein stripping Total Time Total Time Spent Total Time Spent (In Minutes): 35 Discharge Plan Discharge Items Patient Disposition: Home - Self-Care Reason For Visit: NEAR SYNCOPE Discharge Diagnosis: near syncope Activity: Resume your previous activity Non-emergency contact: Primary Care Provider and Supervisor Painting Call non-emergency contact if: you have any medication questions Follow-up/Referrals: Kristina Pardo DO [Primary Care Provider] - Diet: Regular Addtl Attending Provider Instructions: please follow up with your regular pcp Pending Studies at Discharge: No Stand-Alone Forms: My [facility] [employer], Smoking Cessation Medications and DC Order Prescriptions: Continued cholecalciferol (vitamin D3) 50 mcg (2,000 unit) capsule 2,000 mcg PO QPM escitalopram oxalate [Lexapro] 10 mg Tablet 10 mg PO HS Qty: 0 calcium carbonate-vitamin D3 [Calcium 500 + D] 500 mg(1,250mg) -200 unit tablet 1 tab PO QPM Qty: 0 telmisartan 40 mg tablet 40 mg PO DAILY Qty: 30 2RF potassium chloride [Klor-Con M10] 10 mEq tablet,ER particles/crystals 10 meq PO DAILY Qty: 30 2RF furosemide 20 mg tablet 20 mg PO DIRECTED PRN (Reason: Edema) Rx Instructions: Take 1 tab 1-2 days per week prn. azelastine 137 mcg (0.1 %) aerosol,spray 1 spray intranasal DAILY PRN (Reason: Allergy Symptoms) Qty: 30 5RF omeprazole magnesium [Prilosec OTC] 20 mg tablet,delayed release (DR/EC) 20 mg PO QAM diclofenac sodium 1 % gel 2 g topical DIRECTED PRN (Reason: Pain) Eliquis 5 mg tablet 5 mg PO BID Rx Instructions: TAKE 1 TABLET BY MOUTH TWICE DAILY Discharge Orders: Discharge Order (Routine); Ordered 06/30/23 Ordered By: Oswaldo Mccartney Admission Data Admit Date/Time: 06/29/23 18:47 Attending Provider: Oswaldo Mccartney Admit Provider: Jose Guerrero Primary Care Provider: Kristina Pardo Other Providers: Jose Guerrero; Rajesh Hutchinson Coding Level of Care Code 42968 INP/OBS DISCH >30 MIN Diagnoses Symptomatic bradycardia R00.1 Permanent atrial fibrillation I48.21 Depression F32.A Near syncope R55 Time Spent (min) 35
--- NOTE | 2023-06-30 16:09 | Electrocardiogram Report ---
Test Reason : Blood Pressure : / mmHG Vent. Rate : 084 BPM Atrial Rate : 000 BPM P-R Int : 000 ms QRS Dur : 094 ms QT Int : 364 ms P-R-T Axes : 000 095 066 degrees QTc Int : 430 ms Atrial fibrillation with premature ventricular or aberrantly conducted complexes Rightward axis Incomplete right bundle branch block Cannot rule out Anteroseptal infarct (cited on or before 14-DEC-2019) Abnormal ECG When compared with ECG of 24-JUN-2023 19:16, Questionable change in initial forces of Anterior leads Confirmed by Juventino Gallardo ([id number]) on 06/30/2023 4:09:24 PM Referred By: REFERRED SELF Confirmed By:Juventino Gallardo
[2023-07-01] MEDS ORDERED: APIXABAN 5 MG TABLET PO SCH (09:00)
--- OUTSIDE RECORDS SUMMARY | 2023-07-08 15:43 | External Medical Summary | Summary of Care ---
Author Name Unknown Organization [facility] Address [address] [facility] [place] [address] Phone [phone] Care Team Providers Care Litigation Assistant Name Role Phone Kristina Pardo MD Primary Care Provider [phone] Reason for Visit * Reason Onset Date Comments Hospital Follow-Up 06/29/2023 Encounter Details Date Type Department Care Team (Late st Contact Info) Description 06/29/2023 Telephone Cardiology, [facility] [address] [place] [address] Rajesh Hutchinson, [address] [place] [id number] Hospital Follow-Up Allergies Active Allergy Reactions Criticality Noted Date Comments Barium-Containing Compounds Nausea/vomiting 09/14/2007 "Bar-Cat" Other - Drugs 09/14/2007 Some anesthesia caused vomiting Sulfa Antibiotics Hives 09/14/2007 documented as of this encounter (statuses as of 07/06/2023) Medications Medication Sig Dispensed Refills Start Date [...] as of this encounter (statuses as of 07/06/2023) Active Problems Problem Noted Date Diagnosed Date Venous insufficiency 03/17/2023 Varicose veins of leg with complications 024 MELANOMA LEG 09/22/2007 ADVANCE DIRECTIVE INFORMATION 09/14/2007 Overview: Yes, Patient instructed to provide copy of advance directive for provider to review and to be scanned into Electronic Medical Record. documented as of this encounter (statuses as of 07/06/2023) Immunizations Name Administration Dates Next Due Seasonal [...] encounter Miscellaneous Notes * Telephone Encounter - Rajesh Hutchinson DO - 06/29/2023 5:07 PM EDT I was contacted by Dr Fair of [place] emergency medicine with regards to patient having been admitted to [facility] [place] [facility] cardiology consultation from 06/23-06/25/23 for syncope. Returns again to ED for similar symptoms once again after walking her dog. BP normal in the ED. EKG reveals sinus rhythm with incomplete right bundle branch block, normal QRS duration not prolonged, ventricular rate in the 70s. 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 Atrial fibrillation with average rate in the 70s noted at that time. There was however an asymptomatic 35 beat run of wide- complex tachycardia thought to be due to supraventricular origin with aberrant conduction, no associated symptoms atthat time. Per result note from after the Zio patch, stress echo had been recommended by Dr. Lopez, is yet to be ordered or scheduled however. I shared the results of the recent Zio patch monitor with the emergency room provider and offered that I thought it be reasonable for the patient to remain in the hospital for ongoing expedited workup, and observation on telemetry, or discharge depending upon her preference with outpatient follow-up. Further recommendations will be forthcoming. Rajesh Hutchinson DO documented in this encounter Plan of Treatment Upcoming Encounters Date Type Department Care Team (Late st Contact Info) Description 07/13/2023 2:30 PM EDT Office Visit Cardiology, [facility] [address] [place] [address] Yolanda Simmons CRNP [address] [place] [address] 12/02/2023 8:30 AM EDT Office Visit Cardiology, [facility] [address] [place] [address] Sam Lopez MD [address] [place], [place] [id number] Health Maintenance Due Date Last Done Comments [...] filedocumented as of this encounter Care Teams Litigation Assistant Relationship Specialty Start Date End Date Kristina Pardo MD [address] [place] [address] PCP - General Family Medicine 05/28/23 documented as of this encounter
== END 2023-06-30 16:00 | disposition home or self-care (01) | DRG 310 ==
LOC: ED 13:47 → EDINP 18:47 → INTOOBSV 18:47 → OBSVTOIN 18:47 → SUATTDRO 18:47 → EDINP 20:45